=== PATIENT | male | born 1960 | race Caucasian/White ===

== ENCOUNTER 2019-08-07 18:29 | Inpatient (IN) | payer BC ==
--- NOTE | 2019-08-07 18:58 | ER Document Report ---
ED General - General Chief Complaint: Shortness Of Breath Stated Complaint: BREATHING PROBLEMS Time Seen by Provider: 08/07/19 18:44 Primary Care Provider: NELSON SKY MD [MISSAEL CORMIER] - Follow up as needed - [facility] Notes: Mr. Kc is a 59-year-old male lifelong cigarette smoker with a chief com plaint of difficulty breathing. This man has been told he has COPD in the past. He says he is not been hospitalized for this or intubated at any time. He denies any current medications. He denies allergies. He says he no longer smokes. He denies abuse of alcohol. He denies any major surgery. He is in profound respiratory distress and ability to ascertain further history from the patient is currently limited on this basis. He also appears to be somewhat encephalopathic. - Related Data Allergies/Adverse Reactions: No Known Allergies Allergy (Verified 12/27/13 15:08) Past Medical History - General Information source: Patient Cannot obtain history due to: Altered mental status - Social History Smoking Status: Former Smoker Family History: Reviewed & Not Pertinent - Past Medical History Cardiac Medical History: Denies: Hx Coronary Artery Disease, Hx Heart Attack, Hx Hypertension Pulmonary Medical History: Denies: Hx Asthma, Hx Bronchitis, Hx COPD, Hx Pneumonia, Hx Tuberculosis Neurological Medical History: Denies: Hx Cerebrovascular Accident, Hx Seizures Musculoskeletal Medical History: Denies Hx Arthritis - Immunizations Hx Diphtheria, Pertussis, Tetanus Vaccination: Yes Review of Systems - Review of Systems -: Yes ROS unobtainable due to patient's medical condition Physical Exam - Vital signs Vitals: Resp Pulse Ox 18 91 L 08/07/19 18:49 08/07/19 18:49 - Notes Notes: GENERAL: This is a somewhat obtunded male appearing approximately stated age who is in respiratory distress and had an O2 saturation in the mid 60s when seen in the triage area. He is noted to have a full tompkins. SKIN: Good turgor no rashes. HEAD: Normocephalic atraumatic. EYES: PERRLA. EOMI. Conjunctivae and sclerae clear. EARS: CANALS AND TMS CLEAR. NOSE: CLEAR. MOUTH: Moist mucosa. No stridor or edema. No drooling. NECK: Supple. No masses or thyromegaly. No adenopathy. Carotids 2+ without bruits. No JVD. BACK: Symmetrical without tenderness. CHEST: Respirations are labored with tight wheezes diffusely and symmetry of breath sounds. HEART: Regular rhythm. No murmur gallop or rub. ABDOMEN: Soft nontender without masses, organomegaly or rebound. Bowel sounds normally active. No bruits. GENITALIA: Deferred. EXTREMITIES: No edema. No calf tenderness. Cap refill less than 1.5 seconds. Dorsalis pedis and posterior tibial pulses 2 + and symmetrical. NEUROLOGICAL: Patient is oriented to person place but not time. Somewhat obtunded. His GCS is 13. His eyes are closed but he opens them on verbal command and he is following verbal commands to squeeze my fingers. Fluent speech. Cranial nerves II through XII intact. No gross sensory or motor deficit. And movement is symmetrical all 4 extremities. Normal tone. Course - Re-evaluation Re-evalutation: 08/07/19 19:01 BiPAP has been initiated. Continuous cardiac monitoring. IV access estab lished. Submental oxygen. Diagnostic studies to be obtained at this time include arterial blood gas CBC conference of metabolic profile blood cultures serum lactate urinalysis urine drug screen blood alcohol EKG and portable chest x-ray. 08/07/19 19:38 Mr. Kc looks much better clinically at this time. He is much more awake and alert and seems to be breathing very comfortably with BiPAP now. We are having some difficulty maintaining satisfactory seal with a mask due to his tompkins. I spoke with respiratory and asked him to try to adjust the mask to optimize his ventilatory status. His arterial blood gas initially showed a pH of 7.11 with a PCO2 of 95 and a PO2 of 116. His chest x-ray shows some slight increase in interstitial markings with no clear-cut focal consolidation no effusion and no pneumothorax. His EKG is remarkable for a sinus tachycardia and some PACs. His chemistry studies CBC urinalysis and tox studies all remain pending at this time as does his CK and BNP levels. I am going to give this man some IV steroids. We will repeat a arterial blood gas and approximately 35 minutes. We will try to avoid endotracheal intubation if we possibly can. At this point he does look better clinically however. 08/07/19 21:36 Patient has findings of congestive heart failure and COPD exacerbation. He is going to get IV Lasix and IV nitroglycerin. He is being admitted to the critical care unit by Dr. Jones. We debated about doing intubation for the patient but feel at this time it would like to try to avoid intubation and we will initially maximize treatment for his blood pressure his CHF and COPD exacerbation understanding that he may ultimately require intubation after he is admitted to the unit. - Vital Signs Vital signs: Temp Pulse Resp BP Pulse Ox 25 H 144/92 H 95 08/07/19 20:01 08/07/19 20:00 08/07/19 20:01 - Laboratory Result Diagrams: 08/07/19 18:49 08/07/19 18:49 Laboratory results interpreted by me: 08/07/19 08/07/19 08/07/19 18:49 18:49 18:49 WBC 13.2 H RBC 5.62 H Hgb 17.3 H Hct 54.9 H MCV 98 H MCHC 31.6 L RDW 14.6 H Abs Neuts (Manual) 10.8 H PT 17.5 H Carbonic Acid ABG pH ABG pCO2 ABG pO2 ABG HCO3 ABG Total CO2 ABG O2 Saturation Potassium 5.5 H Chloride 96 L BUN 64 H Creatinine 1.47 H Est GFR ( Amer) 59 L Est GFR (MDRD) Non-Af 49 L Glucose 209 H Magnesium 3.0 H Total Bilirubin 1.6 H Direct Bilirubin 0.9 H AST 507 H Alkaline Phosphatase 159 H NT-Pro-B Natriuret Pep 08/07/19 08/07/19 08/07/19 18:49 18:49 20:05 WBC RBC Hgb Hct MCV MCHC RDW Abs Neuts (Manual) PT Carbonic Acid 2.87 H 2.99 H ABG pH 7.11 L* 7.18 L* ABG pCO2 95.3 H* 99.5 H* ABG pO2 116.2 H 193.6 H ABG HCO3 29.3 H 36.4 H ABG Total CO2 32.2 H 39.4 H ABG O2 Saturation 98.9 H Potassium Chloride BUN Creatinine Est GFR ( Amer) Est GFR (MDRD) Non-Af Glucose Magnesium Total Bilirubin Direct Bilirubin AST Alkaline Phosphatase NT-Pro-B Natriuret Pep 01393 H - Diagnostic Test Radiology reviewed: Reports reviewed - EKG Interpretation by Me Additional EKG results interpreted by me: 08/07/19 19:41 Sinus tachycardia. Normal axis. PACs present. No acute ST changes. Critical Care Note - Critical Care Note Total time excluding time spent on procedures (mins): 105 Comments: BiPAP initiated for respiratory failure. Discharge - Discharge Clinical Impression: Acute respiratory failure with hypercapnia, Acute decompensated heart failure Chronic obstructive pulmonary disease (COPD) Qualifiers: COPD type: unspecified COPD Qualified Code(s): J44.9 - Chronic obstructive pulmonary disease, unspecified Condition: Critical Disposition: ADMITTED INPATIENT Admitting Provider: Rosetta (Vending Manager) Unit Admitted: ICU Referrals: NELSON SKY MD [[facility]] - Follow up as needed
--- NOTE | 2019-08-07 19:10 | RADIOLOGY REPORT (SQ) ---
EXAM DESCRIPTION: CHEST SINGLE VIEW COMPLETED DATE/TIME: 08/07/2019 7:03 pm REASON FOR STUDY: respiratory failure COMPARISON: None. TECHNIQUE: Single frontal radiographic view of the chest acquired. NUMBER OF VIEWS: One view. LIMITATIONS: None. FINDINGS: LUNGS AND PLEURA: No pneumothorax. Increased interstitial and alveolar opacities in both lung bases, left greater than right. No significant pleural effusion. MEDIASTINUM AND HILAR STRUCTURES: Age-appropriate. HEART AND VASCULAR STRUCTURES: Borderline cardiac enlargement. BONES: No acute findings. HARDWARE: None in the chest. OTHER: No other significant finding. IMPRESSION: Increased interstitial and alveolar opacities in both lung bases, left greater than righ t. No significant pleural effusion. TECHNICAL DOCUMENTATION: JOB ID: [id number] [id number] 2010 [employer]- All Rights Reserved Reading location - IP/workstation name: [employer]
[2019-08-07 19:14] LABS: ARTERIAL BLOOD H2CO3 2.87 mmol/L (1.05-1.35); ARTERIAL BLOOD HCO3 29.3 mmol/L (20-24); ARTERIAL BLOOD O2 SATURATION 96.4 % (94-98); ARTERIAL BLOOD PO2 116.2 mmHg (80-100); ARTERIAL BLOOD TOTAL CO2 32.2 mmol/L (23-27)
[2019-08-07 19:15] LABS: HEMATOCRIT 54.9 % (37.9-51.0); HEMOGLOBIN 17.3 g/dL (13.5-17.0); INTERNATIONAL RATION (INR) 1.43; MEAN CORPUSCULAR HEMOGLOBIN 30.8 pg (27.0-33.4); MEAN CORPUSCULAR HGB CONC 31.6 g/dL (32.0-36.0); MEAN CORPUSCULAR VOLUME 98 fl (80-97); PROTHROMBIN TIME 17.5 SEC (11.4-15.4); RED BLOOD COUNT 5.62 10^6/uL (4.35-5.55); RED CELL DISTRIBUTION WIDTH 14.6 % (11.5-14.0); WHITE BLOOD COUNT 13.2 10^3/uL (4.0-10.5)
[2019-08-07 19:16] LABS: PARTIAL THROMBOPLASTIN TIME 29.5 SEC (23.5-35.8)
[2019-08-07 19:18] LABS: ARTERIAL BLOOD FIO2 100%
[2019-08-07 19:19] LABS: ARTERIAL BLOOD PCO2 95.3 mmHg (35-45); ARTERIAL BLOOD PH 7.11 (7.35-7.45)
[2019-08-07 19:33] LABS: ALBUMIN 4.2 g/dL (3.5-5.0); ALKALINE PHOSPHATASE 159 U/L (38-126); ASPARTATE AMINO TRANSFERASE 507 U/L (17-59); BILIRUBIN,DIRECT 0.9 mg/dL (0.0-0.4); BILIRUBIN,TOTAL 1.6 mg/dL (0.2-1.3); BLOOD UREA NITROGEN 64 mg/dL (7-20); CALCIUM 9.6 mg/dL (8.4-10.2); GLUCOSE 209 mg/dL (75-110); POTASSIUM 5.5 mmol/L (3.6-5.0); TOTAL PROTEIN 7.9 g/dL (6.3-8.2)
[2019-08-07 19:38] LABS: CARBON DIOXIDE 28 mmol/L (22-30); CHLORIDE 96 mmol/L (98-107)
[2019-08-07 19:40] LABS: ALCOHOL < 10 mg/dL (NONE DETECTED)
[2019-08-07 19:41] LABS: ANION GAP 19 (5-19)
[2019-08-07 19:45] LABS: TROPONIN I 0.369 ng/mL
[2019-08-07 19:54] LABS: ABSOLUTE LYMPHOCYTES# (MANUAL) 1.7 10^3/uL (0.5-4.7); ABSOLUTE MONOCYTES # (MANUAL) 0.7 10^3/uL (0.1-1.4); BAND NEUTROPHILS % (MANUAL) 5 % (3-5); BASOPHILS % (MANUAL) 0 % (0-2); EOSINOPHILS % (MANUAL) 0 % (0-6); LYMPHOCYTES % (MANUAL) 13 % (13-45); MONOCYTES % (MANUAL) 5 % (3-13); NUCLEATED RED BLOOD CELLS 2 /100 WBC (0); SEGMENTED NEUTROPHILS % (MAN) 77 % (42-78); TOTAL CELLS COUNTED 100
[2019-08-07 19:55] LABS: ANISOCYTOSIS 1+; PLATELET COMMENT ADEQUATE; PLATELET COUNT 311 10^3/uL (150-450); POLYCHROMASIA 1+
[2019-08-07 20:26] LABS: ARTERIAL BLOOD BASE EXCESS 3.2 mmol/L; ARTERIAL BLOOD H2CO3 2.99 mmol/L (1.05-1.35); ARTERIAL BLOOD HCO3 36.4 mmol/L (20-24); ARTERIAL BLOOD O2 SATURATION 98.9 % (94-98); ARTERIAL BLOOD PO2 193.6 mmHg (80-100); ARTERIAL BLOOD TOTAL CO2 39.4 mmol/L (23-27)
[2019-08-07 20:34] LABS: ARTERIAL BLOOD FIO2 90%
[2019-08-07 20:35] LABS: ARTERIAL BLOOD PCO2 99.5 mmHg (35-45); ARTERIAL BLOOD PH 7.18 (7.35-7.45)
[2019-08-07] MEDS ORDERED: FUROSEMIDE INJ/PF 20 MG/2 ML SDV IV ONE (21:10)
[2019-08-07] MEDS ORDERED: IPRATROPIUM/ALBUTEROL 0.5-2.5 MG/3 ML AMPUL NEB ONE ×2 (21:37→21:51)
[2019-08-07] MEDS ORDERED: METHYLPREDNISOLONE INJ 125 MG/2 ML SDV ONE (21:48)
[2019-08-07 21:50] LABS: ARTERIAL BLOOD BASE EXCESS 3.6 mmol/L; ARTERIAL BLOOD H2CO3 2.53 mmol/L (1.05-1.35); ARTERIAL BLOOD HCO3 34.7 mmol/L (20-24); ARTERIAL BLOOD PH 7.24 (7.35-7.45); ARTERIAL BLOOD PO2 79.7 mmHg (80-100); ARTERIAL BLOOD TOTAL CO2 37.3 mmol/L (23-27)
[2019-08-07] MEDS ORDERED: METHYLPREDNISOLONE INJ 125 MG/2 ML SDV IV ONE (21:51)
[2019-08-07 21:52] LABS: ARTERIAL BLOOD FIO2 45%
[2019-08-07 21:53] LABS: ARTERIAL BLOOD PCO2 83.9 mmHg (35-45)
--- NOTE | 2019-08-07 23:06 | CRITICAL CARE ADMISSION REPORT ---
[facility] Date:: 08/07/19 Time:: 22:15 Reason for ICU Reason:: COPD exacerbation, acute on chronic respiratory failure. HPI: 59-year-old gentleman with no known significant past medical history other than a greater than [id number] history of smoking. He presented to the emergency department with shortness of breath and was suspected of having a COPD exacerbation. He was found to be in respiratory failure as he was somewhat obtunded with a pH of 7.11 and a CO2 of 95. He was placed on BiPAP with no significant improvement in CO2. Patient also has a BNP of 24,000 and a elevated troponin of 0.369 with no associated EKG abnormalities. CXR shows bilateral lower lobe consolidations. Upon interview and exam, patient was awake and alert for me and was awaiting administration of DuoNeb's and steroids. Given his clinical improvement, I postponed intubation until further treatment and evaluation. Repeat ABG now showing a pH of 7.24 and CO2 of 84. We will admit him to the intensive care unit for treatment of his COPD exacerbation, pneumonia, and for close observation given his possible impending respiratory failure. History obtained from:: Patient, medical record documentation. - Diagnosis/Plan (2) Chronic obstructive pulmonary disease (COPD) Qualifiers: COPD type: COPD with acute lower respiratory infection Qualified Code(s): J44.0 - Chronic obstructive pulmonary disease with (acute) lower respiratory infection Is this a current diagnosis for this admission?: Yes Plan: 1. Start duo nebs every 4 hours with first 2 treatments [id number]. 2. Start Solu-Medrol 1-2 mg/kg every 6 hours. 3. Maintain on BiPAP overnight. Obtain repeat ABG if any change in mental status. If patient no longer mentating well or if PaCO2 continues to rise, patient has agreed to intubation. 4. Given the severe exacerbation with possible impending respiratory failure and known infiltrates on CXR, we will start Zosyn and levofloxacin and obtain a sputum culture. (3) Elevated troponin level Is this a current diagnosis for this admission?: Yes Plan: Most likely attributed to relatively long period of hypoxemia. No EKG changes evident. PaO2 improving on BiPAP. Will reassess. Past Medical History Medical History: None - No known medical history. Cardiac Medical History: Denies: Coronary Artery Disease, Myocardial Infarction, Hypertension Pulmonary Medical History: Denies: Asthma, Bronchitis, Chronic Obstructive Pulmonary Disease (COPD), Pneumonia, Tuberculosis Neurological Medical History: Denies: Seizures Musculoskeltal Medical History: Denies: Arthritis Hematology: Denies: Anemia Past Surgical History Past Surgical History: Reports: Other - I&D of abdominal abscess Social/Family History - Social History Social History Note: Patient unable to provide much history while on BiPAP however he states that he has no family. Possibly homeless given his poor hygiene. Occupation: Unknown Lives with: Alone Smoking Status: Current Every Day Smoker Cigarettes Packs Per Day: 1.5 Number of Years Smokin Last Time Smoked: 2 weeks ago Frequency of Alcohol Use: None Hx Recreational Drug Use: No Hx Prescription Drug Abuse: No - Family History Family History: Unable to obtain - Medication/Allergies Home Medications: No Home Medications 1 mg PO DAILY 04/07/12 Cephalexin [Keflex] 500 mg PO QID 12/30/13 Metronidazole [Flagyl 500 mg Tablet] 500 mg PO QID 12/30/13 Oxycodone HCl/Acetaminophen [Percocet 5-325 mg Tablet] 1 - 2 tab PO BID 12/30/13 Allergies/Adverse Reactions: No Known Allergies Allergy (Verified 12/27/13 15:08) Review of Systems ROS unobtainable: Due to mental status, Other - Limited evaluation due to BiPAP mask. No gross complaints. Physical Exam Vital Signs: Temp Pulse Resp BP Pulse Ox 98.9 F 19 150/97 H 90 L 08/07/19 22:00 08/07/19 21:50 08/07/19 21:50 08/07/19 21:50 Intake & Output 08/06/19 08/07/19 08/08/19 06:59 06:59 06:59 Weight 111.8 kg Weight/Height Weight 111.8 kg General appearance: PRESENT: disheveled, severe distress Head exam: PRESENT: atraumatic, normocephalic Eye exam: PRESENT: EOMI, PERRLA Ear exam: ABSENT: bleeding, drainage Neck exam: ABSENT: carotid bruit, JVD, tenderness Respiratory exam: PRESENT: decreased breath sounds, rhonchi, wheezes Cardiovascular exam: PRESENT: RRR, +S1, +S2 Pulses: PRESENT: normal carotid pulses, normal radial pulses Vascular exam: PRESENT: normal capillary refill GI/Abdominal exam: PRESENT: normal bowel sounds, soft. ABSENT: distended, tenderness Extremities exam: ABSENT: calf tenderness, joint swelling, pedal edema Musculoskeletal exam: PRESENT: normal inspection Neurological exam: PRESENT: alert, oriented to situation, CN II-XII grossly intact Psychiatric exam: PRESENT: appropriate affect Additional comments: Poor hygiene. Laboratory/Radiographs Laboratory Results: 08/07/19 18:49 08/07/19 08/07/19 08/07/19 18:49 18:49 18:49 WBC 13.2 H RBC 5.62 H Hgb 17.3 H Hct 54.9 H MCV 98 H MCH 30.8 MCHC 31.6 L RDW 14.6 H Plt Count 311 Seg Neutrophils % Not Reportable Carbonic Acid 2.87 H HCO3/H2CO3 Ratio 10:1 ABG pH 7.11 L* ABG pCO2 95.3 H* ABG pO2 116.2 H ABG HCO3 29.3 H ABG O2 Saturation 96.4 ABG Base Excess -4.0 FiO2 100% Sodium 143.1 Potassium 5.5 H Chloride 96 L Carbon Dioxide 28 Anion Gap 19 BUN 64 H Creatinine 1.47 H Est GFR ( Amer) 59 L Glucose 209 H Lactic Acid Calcium 9.6 Magnesium 3.0 H Total Bilirubin 1.6 H AST 507 H Alkaline Phosphatase 159 H Total Protein 7.9 Albumin 4.2 08/07/19 08/07/19 08/07/19 20:05 20:55 21:20 WBC RBC Hgb Hct MCV MCH MCHC RDW Plt Count Seg Neutrophils % Carbonic Acid 2.99 H 2.53 H HCO3/H2CO3 Ratio 12:1 13:1 ABG pH 7.18 L* 7.24 L ABG pCO2 99.5 H* 83.9 H* ABG pO2 193.6 H 79.7 L ABG HCO3 36.4 H 34.7 H ABG O2 Saturation 98.9 H 93.0 L ABG Base Excess 3.2 3.6 FiO2 90% 45% Sodium Potassium Chloride Carbon Dioxide Anion Gap BUN Creatinine Est GFR ( Amer) Glucose Lactic Acid 2.9 H Calcium Magnesium Total Bilirubin AST Alkaline Phosphatase Total Protein Albumin 08/07/19 18:49 Troponin I 0.369 NT-Pro-B Natriuret Pep 44910 H Impressions: Chest X-Ray 08/07/19 18:54 IMPRESSION: Increased interstitial and alveolar opacities in both lung bases, left greater than right. No significant pleural effusion. All labs, radiographs, diagnostic studies and EKGs were personally reviewed: Yes In addition, reports of radiographic and diagnostic studies were read: Yes Critical Time Critical Time (minutes): 70 -: The care of a critically ill patient is dynamic. This note represents a static moment in the admission process. orders and treatments may be given simultaneously and urgent, and time is not commercial representative of the treatment process. This patient requires Critical Care secondary to life threatening organ or limb dysfunction. Without the need for Critical Care services, the patient is at risk for increased mortality and morbidity.
[2019-08-07] MEDS ORDERED: INFLUENZA QUAD (6MOS+) 2019-20 VAC 0.5 ML SYR IM ONE (23:09)
[2019-08-07] MEDS ORDERED: PIPERACILLIN/TAZOBACTAM 3.375 GM VIAL IV ONE (23:26)
[2019-08-07] MEDS ORDERED: PIPERACILLIN/TAZOBACTAM 3.375 GM VIAL IV PRN (23:32)
--- NOTE | 2019-08-07 23:42 | EKG REPORT ---
SEVERITY:- OTHERWISE NORMAL ECG - SINUS TACHYCARDIA ATRIAL PREMATURE COMPLEX : Confirmed by: Mita Escoto MD 07-Aug-2019 23:42:10
[2019-08-08] MEDS ORDERED: PIPERACILLIN/TAZOBACTAM 3.375 GM VIAL IV SCH
[2019-08-08 00:09] LABS: APPEARANCE,URINE CLEAR; BILIRUBIN,URINE NEGATIVE (NEGATIVE); COLOR,URINE YELLOW; GLUCOSE, URINE NEGATIVE (NEGATIVE); KETONES,URINE NEGATIVE (NEGATIVE); PROTEIN,URINE 100 mg/dL (NEGATIVE)
[2019-08-08] MEDS: IPRATROPIUM/ALBUTEROL 0.5-2.5 MG/3 ML AMPUL NEB SCH ×6 (00:17→20:01)
[2019-08-08] MEDS: PIPERACILLIN SODIUM/TAZOBACTAM 3.375 GM in NORMAL SALINE 100 ML IV SCH ×4 (00:23→17:00)
[2019-08-08 00:25] LABS: URINE AMPHETAMINES SCREEN NEGATIVE; URINE BARBITURATES SCREEN NEGATIVE; URINE BENZODIAZEPINES SCREEN NEGATIVE; URINE COCAINE SCREEN NEGATIVE; URINE MARIJUANA (THC) SCREEN NEGATIVE; URINE METHADONE SCREEN NEGATIVE; URINE PHENCYCLIDINE SCREEN NEGATIVE
[2019-08-08 05:22] LABS: ARTERIAL BLOOD BASE EXCESS 7.1 mmol/L; ARTERIAL BLOOD H2CO3 2.63 mmol/L (1.05-1.35); ARTERIAL BLOOD HCO3 38.6 mmol/L (20-24); ARTERIAL BLOOD O2 SATURATION 91.6 % (94-98); ARTERIAL BLOOD PH 7.26 (7.35-7.45); ARTERIAL BLOOD PO2 72.9 mmHg (80-100); ARTERIAL BLOOD TOTAL CO2 41.3 mmol/L (23-27)
[2019-08-08 05:24] LABS: ARTERIAL BLOOD FIO2 6L
[2019-08-08 05:25] LABS: ARTERIAL BLOOD PCO2 87.5 mmHg (35-45)
[2019-08-08] MEDS: METHYLPREDNISOLONE INJ 125 MG/2 ML SDV IV SCH ×2 (06:36→13:12)
[2019-08-08] MEDS: HEPARIN SOD (PORCINE) 5,000 UNIT/ML 1 ML VIAL SUBCUT SCH ×2 (06:36→13:11)
[2019-08-08 07:13] LABS: HEMATOCRIT 49.6 % (37.9-51.0); HEMOGLOBIN 16.2 g/dL (13.5-17.0); MEAN CORPUSCULAR HEMOGLOBIN 30.8 pg (27.0-33.4); MEAN CORPUSCULAR HGB CONC 32.5 g/dL (32.0-36.0); MEAN CORPUSCULAR VOLUME 95 fl (80-97); PLATELET COUNT 238 10^3/uL (150-450); RED BLOOD COUNT 5.25 10^6/uL (4.35-5.55); RED CELL DISTRIBUTION WIDTH 14.2 % (11.5-14.0); WHITE BLOOD COUNT 13.5 10^3/uL (4.0-10.5)
[2019-08-08 07:23] LABS: INTERNATIONAL RATION (INR) 1.35; PROTHROMBIN TIME 16.8 SEC (11.4-15.4)
[2019-08-08 07:24] LABS: PARTIAL THROMBOPLASTIN TIME 30.7 SEC (23.5-35.8)
[2019-08-08 07:29] LABS: BLOOD UREA NITROGEN 59 mg/dL (7-20); CALCIUM 8.8 mg/dL (8.4-10.2); CHLORIDE 97 mmol/L (98-107); CHOLESTEROL 85.07 mg/dL (0-200); GLUCOSE 143 mg/dL (75-110); PHOSPHORUS 5.3 mg/dL (2.5-4.5); POTASSIUM 5.6 mmol/L (3.6-5.0); TRIGLYCERIDES 115 mg/dL (<150)
[2019-08-08 07:35] LABS: ANION GAP 8 (5-19)
[2019-08-08 07:40] LABS: DIRECT LDL 57 mg/dL (<100); TROPONIN I 0.565 ng/mL
[2019-08-08 07:44] LABS: CARBON DIOXIDE 39 mmol/L (22-30)
--- NOTE | 2019-08-08 08:07 | EKG REPORT ---
SEVERITY:- BORDERLINE ECG - SINUS TACHYCARDIA PROBABLE LEFT ATRIAL ABNORMALITY NONSPECIFIC IVCD INFERIOR ST-T CHANGES FROM 08/07/19 HAVE IMPROVED SLIGHTLY. : Confirmed by: Vladimir Greer MD 08-Aug-2019 08:07:25
--- NOTE | 2019-08-08 09:42 | RADIOLOGY REPORT (SQ) ---
EXAM DESCRIPTION: CHEST SINGLE VIEW COMPLETED DATE/TIME: 08/08/2019 6:13 am REASON FOR STUDY: Pneumonia COMPARISON: 08/07/2019 NUMBER OF VIEWS: One view. TECHNIQUE: Single frontal radiographic image of the chest acquired. LIMITATIONS: None. FINDINGS: LUNGS AND PLEURA: Mixed interstitial lobular pattern in the lung bases, left greater than right. Small left pleural effusion. No significant change. MEDIASTINUM AND HEART: Stable heart size and mediastinal structures. BONY STRUCTURES: No acute findings. HARDWARE: None. OTHER: No other significant finding. IMPRESSION: Bilateral lower lobe pneumonia. No significant change. TECHNICAL DOCUMENTATION: JOB ID: [id number] Reading location - IP/workstation name: [email or web address]
[2019-08-08] MEDS: LEVOFLOXACIN 500 MG/D5W RTU 500 MG/100 ML RTUPB IV SCH (10:44)
--- NOTE | 2019-08-08 12:56 | PDOC CRITICAL CARE PROG REPORT ---
General Date:: 08/08/19 ICU Day:: 2 Hospital Day:: 2 Resuscitation Status: Full Code Events in the past 12 to 24 Hours:: More awake on bipap Review of systems relevant to events:: Respiratory Reason for ICU Addmission:: COPD exacerbation, acute on chronic respiratory failure. - Medications: Medications reviewed and adjusted accordingly: Yes Vasopressors:: None Sedation:: None Physical Exam Vital Signs: Temp Pulse Resp BP Pulse Ox 98.6 F 112 H 16 139/94 H 94 08/08/19 12:00 08/08/19 12:00 08/08/19 12:00 08/08/19 12:00 08/08/19 12:00 Intake & Output 08/07/19 08/08/19 08/09/19 06:59 06:59 06:59 Intake Total 100 Output Total 1025 545 Balance -925 -545 Weight 110.3 kg Weight/Height Weight 110.3 kg Height 6 ft 1 in General appearance: PRESENT: no acute distress, well-developed, well-nourished Head exam: PRESENT: atraumatic, normocephalic Eye exam: PRESENT: conjunctiva pink, EOMI, PERRLA. ABSENT: scleral icterus Ear exam: PRESENT: normal external ear exam Mouth exam: PRESENT: moist, tongue midline Respiratory exam: PRESENT: crackles - Crackles at L base, decreased breath sounds Cardiovascular exam: PRESENT: RRR. ABSENT: diastolic murmur, rubs, systolic murmur Vascular exam: PRESENT: normal capillary refill GI/Abdominal exam: PRESENT: normal bowel sounds, soft. ABSENT: distended, guarding, mass, organolmegaly, rebound, tenderness Gentrourinary exam: PRESENT: indwelling catheter Extremities exam: PRESENT: full ROM. ABSENT: calf tenderness, clubbing, pedal edema Musculoskeletal exam: PRESENT: normal inspection Neurological exam: PRESENT: alert, awake, oriented to person, oriented to place, oriented to time, oriented to situation, CN II-XII grossly intact, other - Sleepy. ABSENT: motor sensory deficit Psychiatric exam: PRESENT: appropriate affect, normal mood. ABSENT: homicidal ideation, suicidal ideation Skin exam: PRESENT: dry, intact, warm. ABSENT: cyanosis, rash Laboratory/Radiographs Laboratory Results: 08/08/19 07:02 08/08/19 07:02 12/04/1808/07/19 08/07/19 18:49 18:49 18:49 WBC 13.2 H RBC 5.62 H Hgb 17.3 H Hct 54.9 H MCV 98 H MCH 30.8 MCHC 31.6 L RDW 14.6 H Plt Count 311 Seg Neutrophils % Not Reportable Carbonic Acid 2.87 H HCO3/H2CO3 Ratio 10:1 ABG pH 7.11 L* ABG pCO2 95.3 H* ABG pO2 116.2 H ABG HCO3 29.3 H ABG O2 Saturation 96.4 ABG Base Excess -4.0 FiO2 100% Sodium 143.1 Potassium 5.5 H Chloride 96 L Carbon Dioxide 28 Anion Gap 19 BUN 64 H Creatinine 1.47 H Est GFR ( Amer) 59 L Glucose 209 H Lactic Acid Calcium 9.6 Phosphorus Magnesium 3.0 H Total Bilirubin 1.6 H AST 507 H Alkaline Phosphatase 159 H Total Protein 7.9 Albumin 4.2 Triglycerides Cholesterol LDL Cholesterol Direct VLDL Cholesterol HDL Cholesterol Urine Color Urine Appearance Urine pH Ur Specific Carpenter Urine Protein Urine Glucose (UA) Urine Ketones Urine Blood Urine RBC (Auto) 08/07/19 08/07/19 08/07/19 20:05 20:55 21:20 WBC RBC Hgb Hct MCV MCH MCHC RDW Plt Count Seg Neutrophils % Carbonic Acid 2.99 H 2.53 H HCO3/H2CO3 Ratio 12:1 13:1 ABG pH 7.18 L* 7.24 L ABG pCO2 99.5 H* 83.9 H* ABG pO2 193.6 H 79.7 L ABG HCO3 36.4 H 34.7 H ABG O2 Saturation 98.9 H 93.0 L ABG Base Excess 3.2 3.6 FiO2 90% 45% Sodium Potassium Chloride Carbon Dioxide Anion Gap BUN Creatinine Est GFR ( Amer) Glucose Lactic Acid 2.9 H Calcium Phosphorus Magnesium Total Bilirubin AST Alkaline Phosphatase Total Protein Albumin Triglycerides Cholesterol LDL Cholesterol Direct VLDL Cholesterol HDL Cholesterol Urine Color Urine Appearance Urine pH Ur Specific Carpenter Urine Protein Urine Glucose (UA) Urine Ketones Urine Blood Urine RBC (Auto) 08/07/19 08/08/19 08/08/19 23:54 04:20 07:02 WBC 13.5 H RBC 5.25 Hgb 16.2 Hct 49.6 MCV 95 MCH 30.8 MCHC 32.5 RDW 14.2 H Plt Count 238 Seg Neutrophils % Carbonic Acid 2.63 H HCO3/H2CO3 Ratio 14:1 ABG pH 7.26 L ABG pCO2 87.5 H* ABG pO2 72.9 L ABG HCO3 38.6 H ABG O2 Saturation 91.6 L ABG Base Excess 7.1 FiO2 6L Sodium Potassium Chloride Carbon Dioxide Anion Gap BUN Creatinine Est GFR ( Amer) Glucose Lactic Acid Calcium Phosphorus Magnesium Total Bilirubin AST Alkaline Phosphatase Total Protein Albumin Triglycerides Cholesterol LDL Cholesterol Direct VLDL Cholesterol HDL Cholesterol Urine Color YELLOW Urine Appearance CLEAR Urine pH 5.0 Ur Specific Carpenter 1.010 Urine Protein 100 H Urine Glucose (UA) NEGATIVE Urine Ketones NEGATIVE Urine Blood MODERATE H Urine RBC (Auto) 0 08/08/19 07:02 WBC RBC Hgb Hct MCV MCH MCHC RDW Plt Count Seg Neutrophils % Carbonic Acid HCO3/H2CO3 Ratio ABG pH ABG pCO2 ABG pO2 ABG HCO3 ABG O2 Saturation ABG Base Excess FiO2 Sodium 144.3 Potassium 5.6 H Chloride 97 L Carbon Dioxide 39 H D Anion Gap 8 BUN 59 H Creatinine 1.27 H Est GFR ( Amer) > 60 Glucose 143 H Lactic Acid Calcium 8.8 Phosphorus 5.3 H Magnesium 2.6 H Total Bilirubin AST Alkaline Phosphatase Total Protein Albumin Triglycerides 115 Cholesterol 85.07 LDL Cholesterol Direct 57 VLDL Cholesterol 23.0 HDL Cholesterol 13 L Urine Color Urine Appearance Urine pH Ur Specific Carpenter Urine Protein Urine Glucose (UA) Urine Ketones Urine Blood Urine RBC (Auto) 08/07/19 08/08/19 08/08/19 18:49 00:36 07:02 Troponin I 0.369 0.636 0.565 NT-Pro-B Natriuret Pep 79371 H 97808 H Impressions: Chest X-Ray 08/08/19 06:00 IMPRESSION: Bilateral lower lobe pneumonia. No significant change. All labs, radiographs, diagnostic studies and EKGs were personally reviewed: Yes In addition, reports of radiographic and diagnostic studies were read: Yes Assessment and Plan - Diagnosis (1) Acute respiratory failure with hypercapnia Is this a current diagnosis for this admission?: Yes Plan: Better but still not resolved with pH 7.27. Continue bipap. (2) Chronic obstructive pulmonary disease (COPD) Qualifiers: COPD type: COPD with acute lower respiratory infection Qualified Code(s): J44.0 - Chronic obstructive pulmonary disease with (acute) lower respiratory infection Is this a current diagnosis for this admission?: Yes Plan: He has never been diagnosed with COPD but has a many year smoking history. He has had dyspnea for 'a few days.' We kendall continue bipap until pH 7.30. Solumedrol and albuterol as well. (3) Elevated troponin level Is this a current diagnosis for this admission?: Yes Plan: Seems to be non-cardiac and will cycle troponins. Plan Summary: Bipap, normalize ABGs more and use steroids and breathing treatments. Critical Time Critical Time (minutes): 35 Level of Care: ICU Anticipated discharge: Home Within: within 72 hours -: 1. The care of a critical patient is a dynamic process. This note is a b2b sales representative synopsis but static in nature. The timeframe for treatments given in order is not necessary the actual time these treatments may have been done. 2. This patient requires critical care secondary to ongoing requirements for therapy not offered or safe outside the critical care environment. Transfer to a lower level of care with altered life or limb morbidity and mortality. 3. Multidisciplinary rounds completed. 4. ABCDE bundle addressed.
[2019-08-09] MEDS: HEPARIN SOD (PORCINE) 5,000 UNIT/ML 1 ML VIAL SUBCUT SCH ×4 (00:09→21:10)
[2019-08-09] MEDS: METHYLPREDNISOLONE INJ 125 MG/2 ML SDV IV SCH ×4 (00:10→21:10)
[2019-08-09] MEDS: PIPERACILLIN SODIUM/TAZOBACTAM 3.375 GM in NORMAL SALINE 100 ML IV SCH ×5 (00:11→23:08)
[2019-08-09] MEDS: IPRATROPIUM/ALBUTEROL 0.5-2.5 MG/3 ML AMPUL NEB SCH ×6 (01:04→20:21)
[2019-08-09 04:51] LABS: BLOOD UREA NITROGEN 56 mg/dL (7-20); CALCIUM 9.3 mg/dL (8.4-10.2); CHLORIDE 101 mmol/L (98-107); GLUCOSE 145 mg/dL (75-110); POTASSIUM 5.4 mmol/L (3.6-5.0)
[2019-08-09 05:45] LABS: ANION GAP 7 (5-19); CARBON DIOXIDE 41 mmol/L (22-30)
[2019-08-09 08:18] LABS: ARTERIAL BLOOD H2CO3 3.03 mmol/L (1.05-1.35); ARTERIAL BLOOD HCO3 45.7 mmol/L (20-24); ARTERIAL BLOOD O2 SATURATION 94.2 % (94-98); ARTERIAL BLOOD PH 7.28 (7.35-7.45); ARTERIAL BLOOD PO2 84.2 mmHg (80-100); ARTERIAL BLOOD TOTAL CO2 48.8 mmol/L (23-27)
[2019-08-09 08:22] LABS: ARTERIAL BLOOD FIO2 65%
[2019-08-09 08:24] LABS: ARTERIAL BLOOD PCO2 100.5 mmHg (35-45)
[2019-08-09] MEDS: LEVOFLOXACIN 500 MG/D5W RTU 500 MG/100 ML RTUPB IV SCH (09:17)
[2019-08-09 12:23] LABS: ARTERIAL BLOOD BASE EXCESS 13.5 mmol/L; ARTERIAL BLOOD H2CO3 2.42 mmol/L (1.05-1.35); ARTERIAL BLOOD HCO3 43.8 mmol/L (20-24); ARTERIAL BLOOD O2 SATURATION 88.4 % (94-98); ARTERIAL BLOOD PH 7.35 (7.35-7.45); ARTERIAL BLOOD PO2 59.7 mmHg (80-100); ARTERIAL BLOOD TOTAL CO2 46.3 mmol/L (23-27)
[2019-08-09] MEDS ORDERED: METOPROLOL TARTRATE PF/INJ 5 MG/5 ML SDV IV ONE ×2 (12:25→12:27)
[2019-08-09] MEDS ORDERED: DILTIAZEM HCL INJ 25 MG/5 ML VIAL IV ONE (12:25)
[2019-08-09 12:26] LABS: ARTERIAL BLOOD FIO2 4L
[2019-08-09 12:27] LABS: ARTERIAL BLOOD PCO2 80.5 mmHg (35-45)
[2019-08-09] MEDS ORDERED: DILTIAZEM HCL INJ 25 MG/5 ML VIAL ONE (12:28)
--- NOTE | 2019-08-09 12:54 | EKG REPORT ---
SEVERITY:- ABNORMAL ECG - SINUS TACHYCARDIA SUPRAVENTRICULAR BIGEMINY PROBABLE LEFT ATRIAL ABNORMALITY BORDERLINE ST DEPRESSION, LATERAL LEADS : Confirmed by: Vladimir Greer MD 09-Aug-2019 12:53:39
--- NOTE | 2019-08-09 13:13 | PDOC CRITICAL CARE PROG REPORT ---
General Date:: 08/09/19 ICU Day:: 2 Hospital Day:: 2 Resuscitation Status: Full Code Events in the past 12 to 24 Hours:: Off bipap Review of systems relevant to events:: Respiratory, neuro. Reason for ICU Addmission:: COPD exacerbation, acute on chronic respiratory failure. - Medications: Medications reviewed and adjusted accordingly: Yes Vasopressors:: None Sedation:: None Physical Exam Vital Signs: Temp Pulse Resp BP Pulse Ox 99.3 F 114 H 18 115/91 H 93 08/09/19 11:00 08/09/19 11:36 08/09/19 11:36 08/09/19 10:47 08/09/19 11:36 Intake & Output 08/08/19 08/09/19 08/10/19 06:59 06:59 06:59 Intake Total 100 600 Output Total 1025 2230 395 Balance -925 -1630 -395 Weight 110.3 kg 109.4 kg Weight/Height Weight 109.4 kg Height 6 ft 1 in General appearance: PRESENT: cooperative, mild distress Head exam: PRESENT: atraumatic, normocephalic Eye exam: PRESENT: conjunctiva pink, EOMI, PERRLA. ABSENT: scleral icterus Ear exam: PRESENT: normal external ear exam Mouth exam: PRESENT: moist, tongue midline Respiratory exam: PRESENT: decreased breath sounds, rhonchi Cardiovascular exam: PRESENT: RRR, other - Episodes of tachycadia. ST and MAT no Afib at this time.. ABSENT: diastolic murmur, rubs, systolic murmur GI/Abdominal exam: PRESENT: normal bowel sounds, soft. ABSENT: distended, guarding, mass, organolmegaly, rebound, tenderness Rectal exam: PRESENT: deferred Extremities exam: PRESENT: full ROM. ABSENT: calf tenderness, clubbing, pedal edema Neurological exam: PRESENT: alert, altered, awake, oriented to person, oriented to place Laboratory/Radiographs Laboratory Results: 08/08/19 07:02 08/09/19 04:02 08/09/19 08/09/19 08/09/19 04:02 07:55 11:59 Carbonic Acid 3.03 H 2.42 H HCO3/H2CO3 Ratio 15:1 18:1 ABG pH 7.28 L 7.35 ABG pCO2 100.5 H* 80.5 H* ABG pO2 84.2 59.7 L ABG HCO3 45.7 H 43.8 H ABG O2 Saturation 94.2 88.4 L ABG Base Excess 13.0 13.5 FiO2 65% 4L Sodium 148.9 H Potassium 5.4 H Chloride 101 Carbon Dioxide 41 H* Anion Gap 7 BUN 56 H Creatinine 1.12 Est GFR ( Amer) > 60 Glucose 145 H Calcium 9.3 08/07/19 08/08/19 08/08/19 18:49 00:36 07:02 Troponin I 0.369 0.636 0.565 NT-Pro-B Natriuret Pep 15891 H 44014 H 08/08/19 12:56 Troponin I 0.445 NT-Pro-B Natriuret Pep Impressions: Chest X-Ray 08/08/19 06:00 IMPRESSION: Bilateral lower lobe pneumonia. No significant change. EKG: ST and perhaps MAT at points All labs, radiographs, diagnostic studies and EKGs were personally reviewed: Yes In addition, reports of radiographic and diagnostic studies were read: Yes Assessment and Plan - Diagnosis (1) Acute respiratory failure with hypercapnia Is this a current diagnosis for this admission?: Yes Plan: Hypercapnia resolved. PO2 somewhat low. (2) Chronic obstructive pulmonary disease (COPD) Qualifiers: COPD type: COPD with acute lower respiratory infection Qualified Code(s): J44.0 - Chronic obstructive pulmonary disease with (acute) lower respiratory infection Is this a current diagnosis for this admission?: Yes Plan: t is off bipap. PCO2 and pH improved. At this time no need to intubate. PO2 somewhat low at 60. On face mask. Keep sats 88-92%. (3) Elevated troponin level Is this a current diagnosis for this admission?: Yes Plan: No STEMI or NSTEMI. O2 supply/demand mismatch from COPD execerbation. (4) Sinus tachycardia seen on rehab consultant Is this a current diagnosis for this admission?: Yes Plan: Treate with IV cardizen and lopressor. Plan Summary: Supplemental O2 and continue solumedrol and albuterol. Critical Time Critical Time (minutes): 35 Level of Care: ICU Anticipated discharge: Home Within: within 72 hours -: 1. The care of a critical patient is a dynamic process. This note is a food service representative synopsis but static in nature. The timeframe for treatments given in order is not necessary the actual time these treatments may have been done. 2. This patient requires critical care secondary to ongoing requirements for therapy not offered or safe outside the critical care environment. Transfer to a lower level of care with altered life or limb morbidity and mortality. 3. Multidisciplinary rounds completed. 4. ABCDE bundle addressed.
[2019-08-09 19:06] LABS: ARTERIAL BLOOD BASE EXCESS 12.4 mmol/L; ARTERIAL BLOOD FIO2 10; ARTERIAL BLOOD H2CO3 2.89 mmol/L (1.05-1.35); ARTERIAL BLOOD HCO3 44.4 mmol/L (20-24); ARTERIAL BLOOD O2 SATURATION 97.9 % (94-98); ARTERIAL BLOOD PH 7.28 (7.35-7.45); ARTERIAL BLOOD PO2 127.3 mmHg (80-100); ARTERIAL BLOOD TOTAL CO2 47.4 mmol/L (23-27)
[2019-08-09 19:08] LABS: ARTERIAL BLOOD PCO2 96.1 mmHg (35-45)
[2019-08-09] MEDS ORDERED: ETOMIDATE INJ/PF 20 MG/10 ML SDV IV ONE (19:47)
[2019-08-09] MEDS ORDERED: PROPOFOL 1,000 MG/100 ML INFUS..BTL IV ONE (19:47)
[2019-08-09] MEDS ORDERED: SUCCINYLCHOLINE CHLORIDE INJ 200 MG/10 ML VIAL ONE (20:00)
[2019-08-09] MEDS: PROPOFOL 1,000 MG/100 ML INFUS..BTL IV PRN (20:15)
[2019-08-09] MEDS: PROPOFOL 1,000 MG/100 ML INFUS..BTL IV ONE (20:15)
--- NOTE | 2019-08-09 22:17 | RADIOLOGY REPORT (SQ) ---
EXAM DESCRIPTION: XR CHEST 1 VIEW COMPLETED DATE/TME: 08/09/2019 00:00 CLINICAL HISTORY: 59 years, Male, ETT placement COMPARISON: 08/08/2019 chest NUMBER OF VIEWS: 1 TECHNIQUE: Portable chest LIMITATIONS: None. FINDINGS: Endotracheal tube with the tip 5 cm above the blaire. Enteric tube with the tip extending into the left upper quadrant. No pneumothorax. Mixed interstitial and airspace opacities bilaterally, as before. Elevation left hemidiaphragm. IMPRESSION: Interval intubation and placement of an enteric tube. Other findings stable copyright 2010 [employer] [facility] [employer]- All Rights Reserved
--- NOTE | 2019-08-09 22:41 | RADIOLOGY REPORT (SQ) ---
EXAM DESCRIPTION: XR CHEST 1 VIEW COMPLETED DATE/TME: 08/09/2019 00:00 CLINICAL HISTORY: 59 years, Male, central line placement COMPARISON: Prior chest x-ray from today's date NUMBER OF VIEWS: 1 TECHNIQUE: Portable chest LIMITATIONS: None. FINDINGS: Central venous catheter, with the tip in the SVC. No pneumothorax. Endotracheal tube and enteric tube remain in place. The heart size is stable. Interstitial and airspace opacities, as before IMPRESSION: Tip of the central line in the SVC. Other findings are stable copyright 2010 [employer]- All Rights Reserved
[2019-08-09] MEDS: FENTANYL CITRATE/PF 600 MCG/60 ML BAG IV PRN (22:57)
[2019-08-09 23:52] LABS: ARTERIAL BLOOD BASE EXCESS 15.1 mmol/L; ARTERIAL BLOOD H2CO3 2.23 mmol/L (1.05-1.35); ARTERIAL BLOOD HCO3 44.3 mmol/L (20-24); ARTERIAL BLOOD O2 SATURATION 82.5 % (94-98); ARTERIAL BLOOD PH 7.39 (7.35-7.45); ARTERIAL BLOOD TOTAL CO2 46.5 mmol/L (23-27)
[2019-08-09 23:55] LABS: ARTERIAL BLOOD FIO2 45%; ARTERIAL BLOOD PCO2 74.1 mmHg (35-45)
[2019-08-10] MEDS: IPRATROPIUM/ALBUTEROL 0.5-2.5 MG/3 ML AMPUL NEB SCH ×6 (00:29→20:12)
[2019-08-10] MEDS: PROPOFOL 1,000 MG/100 ML INFUS..BTL IV PRN ×5 (00:55→21:46)
--- NOTE | 2019-08-10 00:57 | Progress Note ---
Provider Note Provider Note: Procedure note: Procedure: Endotracheal intubation. Patient's overall respiratory condition had declined throughout the day. His most recent ABG showed a PaCO2 of 96.1 and a worsening acidemia. Patient agreed to intubation during our previous conversations and despite being lethargic and confused, he seemed to agree again just prior to intubation procedure. Anesthesia was notified and was at bedside at time of intubation. Glidascope was available at bedside. Patient was laid in the supine position. Rapid sequence intubation was initiated with propofol etomidate and succinylcholine. Vocal cords were identified under direct laryngoscopic vision. 7.5 ET tube was advanced through the vocal cords. Placement confirmed by E-Z cap capnography. Bilateral breath sounds were present and equal. ET tube was secured at 23 cm at the lip. Chest x-ray performed and showed ET tube 6 cm above the blaire. ET tube was then advanced to 26 cm at the lip. Placement then confirmed once again with bilateral breath sounds. Repeat chest x-ray is pending. Repeat ABG shows significant improvement in both pH and PaCO2 level. A large quantity of thick secretions suctioned from ET tube.
--- NOTE | 2019-08-10 00:59 | Operative Report ---
Bedside Procedure - History of Present Illness Indication for Procedure: Medication administration including drips and an tibiotics. Date: 08/09/19 Provider: ROBE [place] - Central Line Right Internal jugular Time completed: 09:00 Consent obtained: Yes Central line pre-insertion: Sterile PPE donned, Chloraprep applied, Sterile drapes applied Central line size (Fr.): 16 Central line lumen type: Triple Anesthetic type: 1% Lidocaine mL's of anesthesia: 3 Ultrasound guided: Yes CM at insertion site: 15 Line secured with sutures: Yes Central line post-insertion: Blood return from lumens, Biopatch applied, Sutured, Sterile dressing applied, Position confirmed w/ CXR Number of attempts: 1 Complications: No
[2019-08-10] MEDS ORDERED: SUCCINYLCHOLINE CHLORIDE INJ 200 MG/10 ML VIAL IV ONE (02:43)
[2019-08-10] MEDS: PROPOFOL 1,000 MG/100 ML INFUS..BTL IV ONE (03:15)
[2019-08-10] MEDS ORDERED: METOPROLOL TARTRATE PF/INJ 5 MG/5 ML SDV IV ONE ×4 (03:46→18:00)
[2019-08-10] MEDS: METHYLPREDNISOLONE INJ 125 MG/2 ML SDV IV SCH ×3 (05:15→21:47)
[2019-08-10] MEDS: PIPERACILLIN SODIUM/TAZOBACTAM 3.375 GM in NORMAL SALINE 100 ML IV SCH ×4 (05:15→23:59)
[2019-08-10] MEDS: HEPARIN SOD (PORCINE) 5,000 UNIT/ML 1 ML VIAL SUBCUT SCH ×3 (05:16→21:47)
--- NOTE | 2019-08-10 07:47 | EKG REPORT ---
SEVERITY:- ABNORMAL ECG - SINUS RHYTHM SINUS PAUSE/ARREST WITH ATRIAL ESCAPE NONSPECIFIC T ABNORMALITIES, ANT-LAT LEADS : Confirmed by: Vladimir Greer MD 10-Aug-2019 07:47:10
[2019-08-10 08:52] LABS: HEMATOCRIT 45.8 % (37.9-51.0); HEMOGLOBIN 14.6 g/dL (13.5-17.0); MEAN CORPUSCULAR HEMOGLOBIN 30.4 pg (27.0-33.4); MEAN CORPUSCULAR VOLUME 95 fl (80-97); RED BLOOD COUNT 4.82 10^6/uL (4.35-5.55); RED CELL DISTRIBUTION WIDTH 14.2 % (11.5-14.0); WHITE BLOOD COUNT 12.4 10^3/uL (4.0-10.5)
[2019-08-10 09:08] LABS: BLOOD UREA NITROGEN 65 mg/dL (7-20); CALCIUM 9.5 mg/dL (8.4-10.2); CHLORIDE 101 mmol/L (98-107); GLUCOSE 133 mg/dL (75-110); POTASSIUM 5.2 mmol/L (3.6-5.0)
[2019-08-10 09:11] LABS: ABSOLUTE LYMPHOCYTES# (MANUAL) 0.4 10^3/uL (0.5-4.7); ABSOLUTE MONOCYTES # (MANUAL) 0.1 10^3/uL (0.1-1.4); BASOPHILS % (MANUAL) 0 % (0-2); EOSINOPHILS % (MANUAL) 0 % (0-6); LYMPHOCYTES % (MANUAL) 3 % (13-45); MONOCYTES % (MANUAL) 1 % (3-13); SEGMENTED NEUTROPHILS % (MAN) 96 % (42-78); TOTAL CELLS COUNTED 100
[2019-08-10 09:12] LABS: POLYCHROMASIA SLIGHT
[2019-08-10] MEDS: LEVOFLOXACIN 500 MG/D5W RTU 500 MG/100 ML RTUPB IV SCH (09:13)
[2019-08-10 09:14] LABS: PLATELET CLUMPS PRESENT; PLATELET COMMENT ADEQUATE; RBC MORPHOLOGY COMMENT NORMO-CYTIC/CHROMIC
[2019-08-10 09:16] LABS: PLATELET COUNT 177 10^3/uL (150-450)
[2019-08-10 09:23] LABS: ANION GAP 4 (5-19)
[2019-08-10 09:24] LABS: CARBON DIOXIDE 44 mmol/L (22-30)
[2019-08-10] MEDS: FAMOTIDINE 20 MG TABLET NG SCH ×2 (11:29→17:42)
--- NOTE | 2019-08-10 12:17 | PDOC CRITICAL CARE PROG REPORT ---
General Date:: 08/10/19 ICU Day:: 4 Ventilator Day:: 2 Hospital Day:: 4 Resuscitation Status: Full Code Events in the past 12 to 24 Hours:: intubated for hypercapnic respiratory failure Reason for ICU Addmission:: COPD exacerbation, acute on chronic respiratory failure. - Medications: Medications reviewed and adjusted accordingly: Yes Physical Exam Vital Signs: Temp Pulse Resp BP Pulse Ox 98.4 F 84 16 108/71 88 L 08/10/19 11:02 08/10/19 11:33 08/10/19 11:33 08/10/19 11:02 08/10/19 11:33 Intake & Output 08/09/19 08/10/19 08/11/19 06:59 06:59 06:59 Intake Total 600 646 100 Output Total 2230 1765 140 Balance -1630 -1119 -40 Weight 109.4 kg 105.7 kg Weight/Height Weight 105.7 kg Height 6 ft 1 in General appearance: PRESENT: no acute distress, well-developed, well-nourished Head exam: PRESENT: atraumatic, normocephalic Eye exam: PRESENT: conjunctiva pink, EOMI, PERRLA. ABSENT: scleral icterus Mouth exam: PRESENT: moist, tongue midline Throat exam: PRESENT: other - ET tube securely in place. Oral care routinely performed Neck exam: ABSENT: carotid bruit, JVD, lymphadenopathy, thyromegaly Respiratory exam: PRESENT: clear to auscultation ashleigh. ABSENT: accessory muscle use, rales, rhonchi, wheezes Cardiovascular exam: PRESENT: tachycardia - mildly tachycardic to low 100's. ABSENT: diastolic murmur, rubs, systolic murmur Pulses: PRESENT: normal dorsalis pedis pul Vascular exam: PRESENT: normal capillary refill GI/Abdominal exam: PRESENT: normal bowel sounds, soft. ABSENT: ascites, distended, guarding, mass, organolmegaly, rebound, tenderness Rectal exam: PRESENT: deferred Musculoskeletal exam: ABSENT: deformity Neurological exam: PRESENT: other - ALLEN -4 on current sedation levels. CNII-XII grossly intact. Psychiatric exam: ABSENT: agitated Skin exam: PRESENT: dry, intact, warm. ABSENT: cyanosis, rash Tubes/Lines: PRESENT: Endotracheal Tube, Central Line Laboratory/Radiographs Laboratory Results: 08/10/19 08:42 08/10/19 08:42 08/09/19 08/09/19 08/09/19 11:59 18:55 23:25 WBC RBC Hgb Hct MCV MCH MCHC RDW Plt Count Seg Neutrophils % Carbonic Acid 2.42 H 2.89 H 2.23 H HCO3/H2CO3 Ratio 18:1 15:1 19:1 ABG pH 7.35 7.28 L 7.39 ABG pCO2 80.5 H* 96.1 H* 74.1 H* ABG pO2 59.7 L 127.3 H 49.0 L ABG HCO3 43.8 H 44.4 H 44.3 H ABG O2 Saturation 88.4 L 97.9 82.5 L ABG Base Excess 13.5 12.4 15.1 FiO2 4L 10 45% Sodium Potassium Chloride Carbon Dioxide Anion Gap BUN Creatinine Est GFR ( Amer) Glucose Calcium Triglycerides 08/10/19 08/10/19 08/10/19 08:42 08:42 08:42 WBC 12.4 H RBC 4.82 Hgb 14.6 Hct 45.8 MCV 95 MCH 30.4 MCHC 32.0 RDW 14.2 H Plt Count 177 Seg Neutrophils % Not Reportable Carbonic Acid HCO3/H2CO3 Ratio ABG pH ABG pCO2 ABG pO2 ABG HCO3 ABG O2 Saturation ABG Base Excess FiO2 Sodium 149.2 H Potassium 5.2 H Chloride 101 Carbon Dioxide 44 H* Anion Gap 4 L BUN 65 H Creatinine 1.02 Est GFR ( Amer) > 60 Glucose 133 H Calcium 9.5 Triglycerides 253 H 08/07/19 08/08/19 08/08/19 18:49 00:36 07:02 Troponin I 0.369 0.636 0.565 NT-Pro-B Natriuret Pep 86520 H 88442 H 08/08/19 12:56 Troponin I 0.445 NT-Pro-B Natriuret Pep Impressions: Chest X-Ray 08/09/19 00:00 IMPRESSION: Tip of the central line in the SVC. Other findings are stable copyright 2011 [employer]- All Rights Reserved All labs, radiographs, diagnostic studies and EKGs were personally reviewed: Yes In addition, reports of radiographic and diagnostic studies were read: Yes Assessment and Plan - Diagnosis (1) Acute respiratory failure with hypercapnia Is this a current diagnosis for this admission?: Yes Plan: Continue to wean ventilator as able. Maintain SPO2 88-92%. (2) Chronic obstructive pulmonary disease (COPD) Qualifiers: COPD type: COPD with acute lower respiratory infection Qualified Code(s): J44.0 - Chronic obstructive pulmonary disease with (acute) lower respiratory infection Is this a current diagnosis for this admission?: Yes Plan: Continue ABX for presumed lower lobe pneumonia. Wean vent as able. Patient likely has baseline hypercapnea at home but still grossly elevated on last ABG. (3) Elevated troponin level Is this a current diagnosis for this admission?: Yes Plan: Levels peaked yesterday and have begun to drop. Continue to trend. (4) Sinus tachycardia seen on cardiac rehabilitation program director Is this a current diagnosis for this admission?: Yes Plan: Episode of hypertension this morning as well. Should patient remain hypertensive will add beta blockade for both tachycardia and HTN. Potassium decreasing from 5.2 but may still be contributing to tachycardia--continue to monitor closely until returns to normal range. (5) Hyperkalemia Is this a current diagnosis for this admission?: Yes Plan: Continues to downtrend with hydration. Monitor closely and avoid supplemental potassium in fluids. Critical Time Critical Time (minutes): 30 Level of Care: ICU Anticipated discharge: Home Within: within 72 hours -: 1. The care of a critical patient is a dynamic process. This note is a premium service representative synopsis but static in nature. The timeframe for treatments given in order is not necessary the actual time these treatments may have been done. 2. This patient requires critical care secondary to ongoing requirements for therapy not offered or safe outside the critical care environment. Transfer to a lower level of care with altered life or limb morbidity and mortality. 3. Multidisciplinary rounds completed. 4. ABCDE bundle addressed.
[2019-08-10] MEDS: FENTANYL CITRATE/PF 600 MCG/60 ML BAG IV PRN (21:46)
[2019-08-11] MEDS: IPRATROPIUM/ALBUTEROL 0.5-2.5 MG/3 ML AMPUL NEB SCH ×7 (00:01→23:45)
[2019-08-11] MEDS ORDERED: METOPROLOL TARTRATE PF/INJ 5 MG/5 ML SDV IV ONE (01:06)
[2019-08-11] MEDS: METOPROLOL TARTRATE PF/INJ 5 MG/5 ML SDV IV PRN ×2 (01:24→06:29)
[2019-08-11] MEDS: PROPOFOL 1,000 MG/100 ML INFUS..BTL IV PRN ×2 (04:55→17:57)
[2019-08-11] MEDS: HEPARIN SOD (PORCINE) 5,000 UNIT/ML 1 ML VIAL SUBCUT SCH ×3 (05:17→21:12)
[2019-08-11] MEDS: METHYLPREDNISOLONE INJ 125 MG/2 ML SDV IV SCH ×3 (05:18→21:11)
[2019-08-11] MEDS: PIPERACILLIN SODIUM/TAZOBACTAM 3.375 GM in NORMAL SALINE 100 ML IV SCH ×4 (05:18→23:01)
[2019-08-11] MEDS ORDERED: AMIODARONE HCL INJ 150 MG/3 ML VIAL IV ONE ×3 (06:42→06:49)
[2019-08-11 07:15] LABS: BLOOD UREA NITROGEN 65 mg/dL (7-20); CALCIUM 9.4 mg/dL (8.4-10.2); CHLORIDE 105 mmol/L (98-107); GLUCOSE 145 mg/dL (75-110); POTASSIUM 5.2 mmol/L (3.6-5.0)
[2019-08-11 07:16] LABS: HEMOGLOBIN 14.8 g/dL (13.5-17.0); MEAN CORPUSCULAR HEMOGLOBIN 30.7 pg (27.0-33.4); MEAN CORPUSCULAR HGB CONC 32.2 g/dL (32.0-36.0); MEAN CORPUSCULAR VOLUME 96 fl (80-97); PLATELET COUNT 162 10^3/uL (150-450); RED BLOOD COUNT 4.82 10^6/uL (4.35-5.55); RED CELL DISTRIBUTION WIDTH 14.2 % (11.5-14.0); WHITE BLOOD COUNT 10.5 10^3/uL (4.0-10.5)
[2019-08-11 07:25] LABS: ANION GAP 3 (5-19)
[2019-08-11 07:26] LABS: CARBON DIOXIDE 45 mmol/L (22-30)
[2019-08-11] MEDS: DEXTROSE 5%-WATER 500 ML with AMIODARONE HCL 900 MG IV PRN ×2 (07:37)
[2019-08-11] MEDS ORDERED: AMIODARONE HCL 150 MG in DEXTROSE 5%-WATER 100 ML IV ONE (07:45)
[2019-08-11 07:47] LABS: ABSOLUTE LYMPHOCYTES# (MANUAL) 0.4 10^3/uL (0.5-4.7); ABSOLUTE MONOCYTES # (MANUAL) 0.1 10^3/uL (0.1-1.4); BASOPHILS % (MANUAL) 0 % (0-2); EOSINOPHILS % (MANUAL) 0 % (0-6); LYMPHOCYTES % (MANUAL) 4 % (13-45); MONOCYTES % (MANUAL) 1 % (3-13); SEGMENTED NEUTROPHILS % (MAN) 95 % (42-78); TOTAL CELLS COUNTED 100
[2019-08-11 07:48] LABS: POLYCHROMASIA SLIGHT; RBC MORPHOLOGY COMMENT NORMO-CYTIC/CHROMIC
[2019-08-11 07:52] LABS: PLATELET COMMENT ADEQUATE
--- NOTE | 2019-08-11 08:17 | RADIOLOGY REPORT (SQ) ---
EXAM DESCRIPTION: CHEST SINGLE VIEW COMPLETED DATE/TIME: 08/11/2019 7:27 am REASON FOR STUDY: v tach COMPARISON: 08/09/2019. EXAM PARAMETERS: NUMBER OF VIEWS: One view. TECHNIQUE: Single frontal radiographic view of the chest acquired. RADIATION DOSE: NA LIMITATIONS: None. FINDINGS: LUNGS AND PLEURA: Faint densities in the lung bases. No pleural effusion. No pneumothora x. MEDIASTINUM AND HILAR STRUCTURES: No masses. Contour normal. HEART AND VASCULAR STRUCTURES: Heart normal in size. Normal vasculature. BONES: No acute findings. HARDWARE: Stable endotracheal tube, nasogastric tube, and central line. OTHER: No other significant finding. IMPRESSION: NO CHANGE IN APPEARANCE OF THE CHEST. TECHNICAL DOCUMENTATION: JOB ID: [id number] [employer]- All Rights Reserved Reading location - IP/workstation name: [email or web address]
[2019-08-11] MEDS: FAMOTIDINE 20 MG TABLET NG SCH ×2 (09:43→17:23)
[2019-08-11] MEDS: LEVOFLOXACIN 500 MG/D5W RTU 500 MG/100 ML RTUPB IV SCH (09:44)
[2019-08-11] MEDS ORDERED: LORAZEPAM INJ 2 MG/1 ML VIAL ONE (09:49)
--- NOTE | 2019-08-11 13:59 | PDOC CRITICAL CARE PROG REPORT ---
General Date:: 08/11/19 ICU Day:: 5 Ventilator Day:: 3 Resuscitation Status: Full Code Reason for ICU Addmission:: COPD exacerbation, acute on chronic respiratory failure. - Medications: Medications reviewed and adjusted accordingly: Yes Physical Exam Vital Signs: Temp Pulse Resp BP Pulse Ox 98.8 F 72 12 120/74 94 08/11/19 12:00 08/11/19 12:00 08/11/19 12:00 08/11/19 12:00 08/11/19 12:00 Intake & Output 08/10/19 08/11/19 08/12/19 06:59 06:59 06:59 Intake Total 646 919 275 Output Total 1765 1540 790 Balance -1119 -621 -515 Weight 105.7 kg 105 kg 105 kg Weight/Height Weight 105 kg Height 6 ft 1 in General appearance: PRESENT: no acute distress, well-developed, well-nourished Head exam: PRESENT: atraumatic, normocephalic Eye exam: PRESENT: conjunctiva pink, EOMI, PERRLA. ABSENT: scleral icterus Ear exam: PRESENT: normal external ear exam Mouth exam: PRESENT: moist, tongue midline Neck exam: ABSENT: carotid bruit, JVD, lymphadenopathy, thyromegaly Respiratory exam: PRESENT: clear to auscultation ashleigh. ABSENT: rales, rhonchi, wheezes Cardiovascular exam: PRESENT: RRR. ABSENT: diastolic murmur, rubs, systolic murmur Pulses: PRESENT: normal dorsalis pedis pul Vascular exam: PRESENT: normal capillary refill GI/Abdominal exam: PRESENT: normal bowel sounds, soft. ABSENT: distended, guarding, mass, organolmegaly, rebound, tenderness Rectal exam: PRESENT: deferred Extremities exam: PRESENT: full ROM. ABSENT: calf tenderness, clubbing, pedal edema Neurological exam: PRESENT: alert, awake, oriented to person, oriented to place, oriented to time, oriented to situation, CN II-XII grossly intact. ABSENT: motor sensory deficit Psychiatric exam: PRESENT: appropriate affect, normal mood. ABSENT: homicidal ideation, suicidal ideation Skin exam: PRESENT: dry, intact, warm. ABSENT: cyanosis, rash Tubes/Lines: PRESENT: Endotracheal Tube, Central Line, Nasogastic Tube Laboratory/Radiographs Laboratory Results: 08/11/19 06:40 08/11/19 06:40 08/11/19 08/11/19 06:40 06:40 WBC 10.5 RBC 4.82 Hgb 14.8 Hct 46.0 MCV 96 MCH 30.7 MCHC 32.2 RDW 14.2 H Plt Count 162 Seg Neutrophils % Not Reportable Sodium 152.6 H Potassium 5.2 H Chloride 105 Carbon Dioxide 45 H* Anion Gap 3 L BUN 65 H Creatinine 1.07 Est GFR ( Amer) > 60 Glucose 145 H Calcium 9.4 08/07/19 08/08/19 08/08/19 18:49 00:36 07:02 Troponin I 0.369 0.636 0.565 NT-Pro-B Natriuret Pep 83471 H 97464 H 08/08/19 12:56 Troponin I 0.445 NT-Pro-B Natriuret Pep Impressions: Chest X-Ray 08/11/19 00:00 IMPRESSION: NO CHANGE IN APPEARANCE OF THE CHEST. All labs, radiographs, diagnostic studies and EKGs were personally reviewed: Yes In addition, reports of radiographic and diagnostic studies were read: Yes Assessment and Plan - Diagnosis (1) Acute respiratory failure with hypercapnia Is this a current diagnosis for this admission?: Yes Plan: Continue to wean ventilator as able. Maintain SPO2 88-92%. (2) Chronic obstructive pulmonary disease (COPD) Qualifiers: COPD type: COPD with acute lower respiratory infection Qualified Code(s): J44.0 - Chronic obstructive pulmonary disease with (acute) lower respiratory infection Is this a current diagnosis for this admission?: Yes Plan: Continue ABX for presumed lower lobe pneumonia. Wean vent as able. Patient likely has baseline hypercapnea at home but still grossly elevated on last ABG. (3) Elevated troponin level Is this a current diagnosis for this admission?: Yes Plan: Levels peaked yesterday and have begun to drop. Continue to trend. (4) Sinus tachycardia seen on manager cardiac cath Is this a current diagnosis for this admission?: Yes Plan: Episode of SVT overnight correcting with amiodarone bolus/drip. HR in 90's now. WIll consult cardiology today for new onset arrhythmia. (5) Hyperkalemia Is this a current diagnosis for this admission?: Yes Plan: Unchanged today. Will transition to supplemental tube feed with less Na and K (Nepro). (6) Hypernatremia Is this a current diagnosis for this admission?: Yes Plan: Unchanged today. Will transition to supplemental tube feed with less Na and K (Nepro). Critical Time Critical Time (minutes): 75 Level of Care: ICU Anticipated discharge: Home Within: within 72 hours -: 1. The care of a critical patient is a dynamic process. This note is a communications representative synopsis but static in nature. The timeframe for treatments given in order is not necessary the actual time these treatments may have been done. 2. This patient requires critical care secondary to ongoing requirements for therapy not offered or safe outside the critical care environment. Transfer to a lower level of care with altered life or limb morbidity and mortality. 3. Multidisciplinary rounds completed. 4. ABCDE bundle addressed.
[2019-08-11] MEDS: FENTANYL CITRATE/PF 600 MCG/60 ML BAG IV PRN (14:14)
[2019-08-11] MEDS ORDERED: FENTANYL CITRATE/PF 600 MCG/60 ML BAG IV PRN (17:23)
[2019-08-12] MEDS: DEXTROSE 5%-WATER 500 ML with AMIODARONE HCL 900 MG IV PRN ×2 (01:24)
[2019-08-12] MEDS: IPRATROPIUM/ALBUTEROL 0.5-2.5 MG/3 ML AMPUL NEB SCH ×5 (04:11→20:04)
[2019-08-12 04:46] LABS: HEMATOCRIT 45.8 % (37.9-51.0); HEMOGLOBIN 14.9 g/dL (13.5-17.0); MEAN CORPUSCULAR HEMOGLOBIN 31.1 pg (27.0-33.4); MEAN CORPUSCULAR HGB CONC 32.7 g/dL (32.0-36.0); MEAN CORPUSCULAR VOLUME 95 fl (80-97); PLATELET COUNT 147 10^3/uL (150-450); RED BLOOD COUNT 4.81 10^6/uL (4.35-5.55); RED CELL DISTRIBUTION WIDTH 14.3 % (11.5-14.0); WHITE BLOOD COUNT 15.4 10^3/uL (4.0-10.5)
[2019-08-12 05:06] LABS: BLOOD UREA NITROGEN 56 mg/dL (7-20); CALCIUM 9.6 mg/dL (8.4-10.2); CHLORIDE 104 mmol/L (98-107); GLUCOSE 137 mg/dL (75-110); POTASSIUM 4.6 mmol/L (3.6-5.0)
[2019-08-12] MEDS: PIPERACILLIN SODIUM/TAZOBACTAM 3.375 GM in NORMAL SALINE 100 ML IV SCH ×2 (05:11→14:04)
[2019-08-12 05:16] LABS: ANION GAP 5 (5-19)
[2019-08-12] MEDS: METHYLPREDNISOLONE INJ 125 MG/2 ML SDV IV SCH (05:16)
[2019-08-12] MEDS: HEPARIN SOD (PORCINE) 5,000 UNIT/ML 1 ML VIAL SUBCUT SCH ×3 (05:16→22:31)
[2019-08-12 05:18] LABS: CARBON DIOXIDE 44 mmol/L (22-30)
[2019-08-12] MEDS ORDERED: FUROSEMIDE INJ/PF 20 MG/2 ML SDV IV ONE (08:28)
--- NOTE | 2019-08-12 08:44 | PDOC CRITICAL CARE PROG REPORT ---
General Date:: 08/12/19 ICU Day:: 6 Resuscitation Status: Full Code Reason for ICU Addmission:: COPD exacerbation, acute on chronic respiratory failure. - Medications: Medications reviewed and adjusted accordingly: Yes Physical Exam Vital Signs: Temp Pulse Resp BP Pulse Ox 99.9 F 103 H 20 148/87 H 91 L 08/12/19 08:00 08/12/19 08:00 08/12/19 08:00 08/12/19 08:00 08/12/19 08:00 Intake & Output 08/11/19 08/12/19 08/13/19 06:59 06:59 06:59 Intake Total 919 1168 Output Total 1540 2590 245 Balance -621 -1422 -245 Weight 105 kg 105 kg Weight/Height Weight 105 kg Height 6 ft 1 in General appearance: PRESENT: no acute distress, well-developed, well-nourished Head exam: PRESENT: atraumatic, normocephalic Eye exam: PRESENT: conjunctiva pink, EOMI, PERRLA. ABSENT: scleral icterus Ear exam: PRESENT: normal external ear exam Mouth exam: PRESENT: moist, tongue midline Neck exam: ABSENT: carotid bruit, JVD, lymphadenopathy, thyromegaly Respiratory exam: PRESENT: crackles, unlabored. ABSENT: rales, rhonchi, wheezes Cardiovascular exam: PRESENT: RRR. ABSENT: diastolic murmur, rubs, systolic murmur Pulses: PRESENT: normal dorsalis pedis pul Vascular exam: PRESENT: normal capillary refill GI/Abdominal exam: PRESENT: normal bowel sounds, soft. ABSENT: distended, guarding, mass, organolmegaly, rebound, tenderness Rectal exam: PRESENT: deferred Extremities exam: PRESENT: full ROM, +1 edema. ABSENT: calf tenderness, clubbing, pedal edema Neurological exam: PRESENT: alert, awake, oriented to person, oriented to place, oriented to time, oriented to situation, CN II-XII grossly intact. ABSENT: motor sensory deficit Psychiatric exam: PRESENT: appropriate affect, normal mood. ABSENT: homicidal ideation, suicidal ideation Skin exam: PRESENT: dry, intact, warm. ABSENT: cyanosis, rash Tubes/Lines: PRESENT: Central Line Laboratory/Radiographs Laboratory Results: 08/12/19 04:39 08/12/19 04:39 08/12/19 08/12/19 04:39 04:39 WBC 15.4 H RBC 4.81 Hgb 14.9 Hct 45.8 MCV 95 MCH 31.1 MCHC 32.7 RDW 14.3 H Plt Count 147 L Sodium 153.2 H Potassium 4.6 Chloride 104 Carbon Dioxide 44 H* Anion Gap 5 BUN 56 H Creatinine 0.96 Est GFR ( Amer) > 60 Glucose 137 H Calcium 9.6 08/07/19 08/08/19 08/08/19 18:49 00:36 07:02 Troponin I 0.369 0.636 0.565 NT-Pro-B Natriuret Pep 01168 H 64031 H 08/08/19 12:56 Troponin I 0.445 NT-Pro-B Natriuret Pep Impressions: Chest X-Ray 08/11/19 00:00 IMPRESSION: NO CHANGE IN APPEARANCE OF THE CHEST. All labs, radiographs, diagnostic studies and EKGs were personally reviewed: Yes In addition, reports of radiographic and diagnostic studies were read: Yes Assessment and Plan - Diagnosis (1) Acute respiratory failure with hypercapnia Is this a current diagnosis for this admission?: Yes Plan: Extubated yesterday. Doing well overll. Maintain SPO2 > 88% on supplemental ox ygen as needed. (2) Chronic obstructive pulmonary disease (COPD) Qualifiers: COPD type: COPD with acute lower respiratory infection Qualified Code(s): J44.0 - Chronic obstructive pulmonary disease with (acute) lower respiratory i nfection Is this a current diagnosis for this admission?: Yes Plan: Continue ABX for presumed lower lobe pneumonia. Will discontinue steroids today. Breathing treatment this morning and Lasix 20mg IV now for overall edema. (3) Elevated troponin level Is this a current diagnosis for this admission?: Yes Plan: Resolved (4) Sinus tachycardia seen on cardiac monitor technician Is this a current diagnosis for this admission?: Yes Plan: Continues on amiodarone. Consult cardiology for recommendations (5) Hyperkalemia Is this a current diagnosis for this admission?: Yes Plan: Improved with decreased supplementation (changing Vital 1.5 to Nepro). (6) Hypernatremia Is this a current diagnosis for this admission?: Yes Plan: Na remains mildly elevated. Cardiac/Renal diet today. Critical Time Critical Time (minutes): 60 Level of Care: ICU Anticipated discharge: Home Within: within 72 hours -: 1. The care of a critical patient is a dynamic process. This note is a sales donor recruitment representative synopsis but static in nature. The timeframe for treatments given in order is not necessary the actual time these treatments may have been done. 2. This patient requires critical care secondary to ongoing requirements for therapy not offered or safe outside the critical care environment. Transfer to a lower level of care with altered life or limb morbidity and mortality. 3. Multidisciplinary rounds completed. 4. ABCDE bundle addressed.
[2019-08-12] MEDS: LEVOFLOXACIN 500 MG/D5W RTU 500 MG/100 ML RTUPB IV SCH (09:24)
[2019-08-12] MEDS: FAMOTIDINE 20 MG TABLET NG SCH ×2 (10:23→18:06)
[2019-08-12] MEDS ORDERED: NIFEDIPINE 30 MG TAB.ER.24 PO SCH (14:00)
--- NOTE | 2019-08-12 16:04 | PDOC CONSULTATION ---
Consultation Consult Date: 08/12/19 Provider Consulted: LAMINE MARTINEZ Consult reason:: Wide-complex tachycardia History of Present Illness Admission Date/PCP: 08/07/19 22:09 History of Present Illness: LAISHA RODRIGUEZ is a 59 year old male with the following active problems 1. Longstanding cigarette smoking-more than 50 pack years 2. COPD 3. Pneumonia 4. Respiratory failure 59-year-old male who was admitted to the hospital for COPD, pneumonia and respiratory failure. He was intubated and while on the ventilator he developed narrow complex tachycardia which converted subsequently to wide-complex tachycardia. This occurred at approximately 6:25 AM 08/11/2019. There was apparently no hemodynamic embarrassment. Patient was initiated on intravenous amiodarone and the rhythm terminated. It is difficult to obtain any history from this patient. No prior cardiac history is reported. Patient is presently nonverbal as he is just extubated. There is not possible to obtain review of systems or family history or other aspects of medical history. History is per chart and per other care providers. No family is present. Past Medical History Cardiac Medical History: Denies: Coronary Artery Disease, Myocardial Infarction, Hypertension Pulmonary Medical History: Denies: Asthma, Bronchitis, Chronic Obstructive Pulmonary Disease (COPD), Pneumonia, Tuberculosis Neurological Medical History: Denies: Seizures Musculoskeltal Medical History: Denies: Arthritis Hematology: Denies: Anemia Past Surgical History Past Surgical History: Reports: Other - I&D of abdominal abscess Social History Lives with: Alone Smoking Status: Current Every Day Smoker Cigarettes Packs Per Day: 1.5 Number of Years Smokin Last Time Smoked: 2 weeks ago Frequency of Alcohol Use: None Hx Recreational Drug Use: No Hx Prescription Drug Abuse: No - Advance Directive Resuscitation Status: Full Code Family History Family History: Reviewed & Not Pertinent Parental Family History Reviewed: No - Unable to obtain. Patient has just been extubated Children Family History Reviewed: NA Sibling(s) Family History Reviewed.: NA Medication/Allergy Home Medications: No Home Medications 08/08/19 Allergies/Adverse Reactions: No Known Allergies Allergy (Verified 12/27/13 15:08) Review of Systems ROS unobtainable: Due to mental status Physical Exam Vital Signs: Temp Pulse Resp BP Pulse Ox 99.7 F 92 23 H 139/89 H 89 L 08/12/19 14:12 08/12/19 12:53 08/12/19 15:13 08/12/19 15:13 08/12/19 15:13 Intake & Output 08/11/19 08/12/19 08/13/19 06:59 06:59 06:59 Intake Total 919 1261 316 Output Total 1546 7910 1400 Balance -395 -9077 -6600 Weight 105 kg 105 kg General appearance: PRESENT: no acute distress Head exam: PRESENT: atraumatic, normocephalic Eye exam: PRESENT: EOMI Mouth exam: PRESENT: moist Respiratory exam: PRESENT: accessory muscle use, decreased breath sounds, prolonged expiratory phas, rhonchi, tachypnea Cardiovascular exam: PRESENT: RRR, +S1, +S2 Pulses: PRESENT: normal radial pulses GI/Abdominal exam: PRESENT: soft Rectal exam: PRESENT: deferred Musculoskeletal exam: PRESENT: normal inspection Neurological exam: PRESENT: altered Psychiatric exam: PRESENT: agitated Skin exam: PRESENT: dry, normal color Results Laboratory Results: 08/12/19 04:39 08/12/19 04:39 08/12/19 08/12/19 04:39 04:39 WBC 15.4 H RBC 4.81 Hgb 14.9 Hct 45.8 MCV 95 MCH 31.1 MCHC 32.7 RDW 14.3 H Plt Count 147 L Sodium 153.2 H Potassium 4.6 Chloride 104 Carbon Dioxide 44 H* Anion Gap 5 BUN 56 H Creatinine 0.96 Est GFR ( Amer) > 60 Glucose 137 H Calcium 9.6 08/09/19 23:18 Sputum Gram Stain - Final 08/09/19 23:18 Sputum Sputum Culture - Final Yeast, Not Izabel Albicans Normal Ciara Absent 08/07/19 08/08/19 08/08/19 18:49 00:36 07:02 Troponin I 0.369 0.636 0.565 NT-Pro-B Natriuret Pep 77117 H 91748 H 08/08/19 12:56 Troponin I 0.445 NT-Pro-B Natriuret Pep EKG Comments: Twelve-lead EKG 06/19/2019 with repeat were reviewed by me and shows sinus tach ycardia Telemetry tracings from the morning of 08/11/2019 from 625 onwards show the presence of sinus rhythm with abrupt onset of atrial tachycardia likely at 6:09 AM. It appears that the wide-complex tachycardia is due to bundle branch aberrancy while the patient has been tachycardia and is unlikely to be ventricular tachycardia. At 6:26 AM wide-complex tachycardia is noted to abruptly change into a narrow complex tachycardia with suggested supraventricular tachycardia and likely atrial tachycardia as a mechanism with right bundle branch aberrancy likely accounting for the wide-complex rhythm. Impressions: Chest X-Ray 08/11/19 00:00 IMPRESSION: NO CHANGE IN APPEARANCE OF THE CHEST. Assessment & Plan - Diagnosis (1) Wide-complex tachycardia Is this a current diagnosis for this admission?: Yes Plan: Wide-complex tachycardia is likely atrial tachycardia with bundle branch aberrancy Patient is noted to have episodes of supraventricular tachycardia Baseline EKG shows sinus rhythm likely normal AV conduction. Given the above and especially with respiratory distress in this patient with COPD atrial tachycardias are more likely as well. Given the fact that the tachycardia has terminated and given compromised respi ratory status and lung issues would not persist with amiodarone therapy. Should patient continue to have episodes of this tachycardia would recommend calcium channel guerrero such as diltiazem CD at 180 mg in isolation or together with low-dose selective beta blockers such as metoprolol - Notes Notes: 1. Discontinue amiodarone 2. Should the patient have paroxysmal supraventricular tachycardia episodes or even wide-complex tachycardia episodes would recommend suppressing atrial tachycardia with calcium channel blockers are our beta-blockers as noted above. 3 based on clinical improvement and echocardiogram can be pursued
[2019-08-12] MEDS ORDERED: DILTIAZEM HCL/D5W 125 MG/125 ML RTUINJ IV ONE (16:31)
[2019-08-12] MEDS: DILTIAZEM HCL/D5W 125 MG/125 ML RTUINJ IV PRN (16:40)
[2019-08-12] MEDS ORDERED: DILTIAZEM HCL INJ 25 MG/5 ML VIAL ONE (16:41)
[2019-08-12 19:02] LABS: ARTERIAL BLOOD BASE EXCESS 15.2 mmol/L; ARTERIAL BLOOD H2CO3 1.78 mmol/L (1.05-1.35); ARTERIAL BLOOD HCO3 42.1 mmol/L (20-24); ARTERIAL BLOOD O2 SATURATION 84.2 % (94-98); ARTERIAL BLOOD PH 7.47 (7.35-7.45); ARTERIAL BLOOD PO2 46.9 mmHg (80-100); ARTERIAL BLOOD TOTAL CO2 43.9 mmol/L (23-27)
[2019-08-12 19:03] LABS: ARTERIAL BLOOD FIO2 5L
[2019-08-13] MEDS: IPRATROPIUM/ALBUTEROL 0.5-2.5 MG/3 ML AMPUL NEB SCH ×6 (00:19→20:19)
[2019-08-13 02:21] LABS: BLOOD UREA NITROGEN 66 mg/dL (7-20); CALCIUM 9.5 mg/dL (8.4-10.2); CHLORIDE 106 mmol/L (98-107); GLUCOSE 135 mg/dL (75-110); PHOSPHORUS 3.6 mg/dL (2.5-4.5); POTASSIUM 4.6 mmol/L (3.6-5.0)
[2019-08-13 02:30] LABS: ANION GAP 5 (5-19)
[2019-08-13 02:31] LABS: CARBON DIOXIDE 42 mmol/L (22-30)
[2019-08-13] MEDS: DILTIAZEM HCL/D5W 125 MG/125 ML RTUINJ IV PRN (05:10)
[2019-08-13] MEDS: HEPARIN SOD (PORCINE) 5,000 UNIT/ML 1 ML VIAL SUBCUT SCH (06:16)
[2019-08-13] MEDS: LEVOFLOXACIN 500 MG/D5W RTU 500 MG/100 ML RTUPB IV SCH (10:01)
[2019-08-13 10:07] LABS: C DIFFICILE GDH NEGATIVE (NEGATIVE)
[2019-08-13] MEDS ORDERED: FUROSEMIDE INJ/PF 20 MG/2 ML SDV IV ONE (12:14)
--- NOTE | 2019-08-13 12:18 | PDOC CRITICAL CARE PROG REPORT ---
General Date:: 08/13/19 ICU Day:: 7 Resuscitation Status: Full Code Review of systems relevant to events:: Patient much more awake and alert today. Was placed on BiPAP overnight but labs and ABG were at his expected levels. Reason for ICU Addmission:: COPD exacerbation, acute on chronic respiratory failure. - Medications: Medications reviewed and adjusted accordingly: Yes Physical Exam Vital Signs: Temp Pulse Resp BP Pulse Ox 96.6 F L 104 H 21 H 95/73 L 90 L 08/13/19 10:00 08/13/19 11:44 08/13/19 11:44 08/13/19 11:07 08/13/19 11:07 Intake & Output 08/12/19 08/13/19 08/14/19 06:59 06:59 06:59 Intake Total 1261 934 350 Output Total 2590 1401 Balance -1329 -467 350 Weight 105 kg 104.2 kg Weight/Height Weight 104.2 kg Height 6 ft 1 in General appearance: PRESENT: no acute distress, well-developed, well-nourished Head exam: PRESENT: atraumatic, normocephalic Eye exam: PRESENT: conjunctiva pink, EOMI, PERRLA. ABSENT: scleral icterus Ear exam: PRESENT: normal external ear exam Mouth exam: PRESENT: moist, tongue midline Neck exam: ABSENT: carotid bruit, JVD, lymphadenopathy, thyromegaly Respiratory exam: PRESENT: clear to auscultation ashleigh, wheezes, other - barrel chest with evidence of COPD. ABSENT: rales, rhonchi Cardiovascular exam: PRESENT: RRR. ABSENT: diastolic murmur, rubs, systolic murmur Pulses: PRESENT: normal dorsalis pedis pul Vascular exam: PRESENT: normal capillary refill GI/Abdominal exam: PRESENT: normal bowel sounds, soft. ABSENT: distended, guarding, mass, organolmegaly, rebound, tenderness Rectal exam: PRESENT: deferred Extremities exam: PRESENT: full ROM. ABSENT: calf tenderness, clubbing, pedal edema Neurological exam: PRESENT: alert, awake, oriented to person, oriented to place, oriented to time, oriented to situation, CN II-XII grossly intact. ABSENT: motor sensory deficit Psychiatric exam: PRESENT: appropriate affect, normal mood. ABSENT: homicidal ideation, suicidal ideation Skin exam: PRESENT: dry, intact, warm. ABSENT: cyanosis, rash Laboratory/Radiographs Laboratory Results: 08/12/19 04:39 08/13/19 01:44 08/12/19 08/13/19 18:40 01:44 Carbonic Acid 1.78 H HCO3/H2CO3 Ratio 23:1 ABG pH 7.47 H ABG pCO2 59.0 H ABG pO2 46.9 L ABG HCO3 42.1 H ABG O2 Saturation 84.2 L ABG Base Excess 15.2 FiO2 5L Sodium 153.2 H Potassium 4.6 Chloride 106 Carbon Dioxide 42 H* Anion Gap 5 BUN 66 H Creatinine 0.97 Est GFR ( Amer) > 60 Glucose 135 H Calcium 9.5 Phosphorus 3.6 Magnesium 2.5 H 08/07/19 22:05 Blood Blood Culture - Final NO GROWTH IN 5 DAYS 08/07/19 20:55 Blood Blood Culture - Final NO GROWTH IN 5 DAYS 08/09/19 23:18 Sputum Gram Stain - Final 08/09/19 23:18 Sputum Sputum Culture - Final Yeast, Not Izabel Albicans Normal Ciara Absent 08/07/19 08/08/19 08/08/19 18:49 00:36 07:02 Troponin I 0.369 0.636 0.565 NT-Pro-B Natriuret Pep 30335 H 85667 H 08/08/19 12:56 Troponin I 0.445 NT-Pro-B Natriuret Pep Impressions: Chest X-Ray 08/11/19 00:00 IMPRESSION: NO CHANGE IN APPEARANCE OF THE CHEST. All labs, radiographs, diagnostic studies and EKGs were personally reviewed: Yes In addition, reports of radiographic and diagnostic studies were read: Yes Assessment and Plan - Diagnosis (1) Acute respiratory failure with hypercapnia Is this a current diagnosis for this admission?: Yes Plan: Maintain SPO2 > 88% on supplemental oxygen as needed. (2) Chronic obstructive pulmonary disease (COPD) Qualifiers: COPD type: COPD with acute lower respiratory infection Qualified Code(s): J44.0 - Chronic obstructive pulmonary disease with (acute) lower respiratory infection Is this a current diagnosis for this admission?: Yes Plan: Continue ABX for presumed lower lobe pneumonia. Original plan was 5 days from identification, however, as his WBC elevated today will continue and trend WBC. Lasix 20mg again today. (3) Elevated troponin level Is this a current diagnosis for this admission?: Yes Plan: Resolved (4) Sinus tachycardia seen on lunchroom monitor Is this a current diagnosis for this admission?: Yes Plan: Amiodarone discontinued yesterday per cardiology and patient had near immediate recurrence of tachyarrhythmia. Was transitioned to diltiazem IV drip. Will convert to PO today with 60mg diltiazem TID. WIll add metoprolol should it be reqiured for additional rate control (5) Hyperkalemia Is this a current diagnosis for this admission?: Yes Plan: Improved with decreased supplementation (changing Vital 1.5 to Nepro). (6) Hypernatremia Is this a current diagnosis for this admission?: Yes Plan: Na remains mildly elevated. Cardiac/Renal diet today. Plan Summary: Plan to transfer to hospitalist service/floor today Critical Time Critical Time (minutes): 30 Level of Care: ICU Anticipated discharge: Home Within: within 48 hours -: 1. The care of a critical patient is a dynamic process. This note is a healthcare sales representative synopsis but static in nature. The timeframe for treatments given in order is not necessary the actual time these treatments may have been done. 2. This patient requires critical care secondary to ongoing requirements for therapy not offered or safe outside the critical care environment. Transfer to a lower level of care with altered life or limb morbidity and mortality. 3. Multidisciplinary rounds completed. 4. ABCDE bundle addressed.
--- NOTE | 2019-08-13 12:21 | PDOC PROGRESS REPORT ---
Subjective Progress Note for:: 08/13/19 Subjective:: Patient has been extubated. He is sitting upright in a chair. He looks exhausted. No complaints described Last 24 hours of telemetry had occasional runs of supraventricular tachycardia likely atrial tachycardia. He was started on intravenous diltiazem at 10 mg i nfusion. He was subsequently started on Procardia XL after stopping the diltiazem but he continued to have runs of atrial tachycardia and had to be put back on diltiazem. No symptoms voiced. Reason For Visit: COPD EXACERBATION,RESPIRATORY FAILURE Physical Exam Vital Signs: Temp Pulse Resp BP Pulse Ox 96.6 F L 104 H 21 H 95/73 L 90 L 08/13/19 10:00 08/13/19 11:44 08/13/19 11:44 08/13/19 11:07 08/13/19 11:07 Intake & Output 08/12/19 08/13/19 08/14/19 06:59 06:59 06:59 Intake Total 1261 934 350 Output Total 2590 1401 Balance -1329 -467 350 Weight 105 kg 104.2 kg General appearance: PRESENT: no acute distress, obese Head exam: PRESENT: atraumatic, normocephalic Eye exam: PRESENT: EOMI Mouth exam: PRESENT: neck supple Respiratory exam: PRESENT: prolonged expiratory phas, rhonchi, symmetrical, wheezes, other - Barrel-shaped chest Cardiovascular exam: PRESENT: RRR, +S1, +S2 GI/Abdominal exam: PRESENT: soft Rectal exam: PRESENT: deferred Neurological exam: PRESENT: alert, altered, oriented to person, oriented to place, oriented to time, oriented to situation Skin exam: PRESENT: dry Results Laboratory Results: 08/12/19 04:39 08/13/19 01:44 08/12/19 08/13/19 18:40 01:44 Carbonic Acid 1.78 H HCO3/H2CO3 Ratio 23:1 ABG pH 7.47 H ABG pCO2 59.0 H ABG pO2 46.9 L ABG HCO3 42.1 H ABG O2 Saturation 84.2 L ABG Base Excess 15.2 FiO2 5L Sodium 153.2 H Potassium 4.6 Chloride 106 Carbon Dioxide 42 H* Anion Gap 5 BUN 66 H Creatinine 0.97 Est GFR ( Amer) > 60 Glucose 135 H Calcium 9.5 Phosphorus 3.6 Magnesium 2.5 H 08/07/19 22:05 Blood Blood Culture - Final NO GROWTH IN 5 DAYS 08/07/19 20:55 Blood Blood Culture - Final NO GROWTH IN 5 DAYS 08/09/19 23:18 Sputum Gram Stain - Final 08/09/19 23:18 Sputum Sputum Culture - Final Yeast, Not Izabel Albicans Normal Ciara Absent 08/07/19 08/08/19 08/08/19 18:49 00:36 07:02 Troponin I 0.369 0.636 0.565 NT-Pro-B Natriuret Pep 36073 H 90769 H 08/08/19 12:56 Troponin I 0.445 NT-Pro-B Natriuret Pep EKG Comments: Review of telemetry presently shows sinus rhythm and sinus tachycardia at about 90 to 103 bpm. Overnight telemetry also shows episodes of SVT likely atrial tachycardia and short episodes. Dominant rhythm is still sinus rhythm and sinus tachycardia. Impressions: Chest X-Ray 08/11/19 00:00 IMPRESSION: NO CHANGE IN APPEARANCE OF THE CHEST. Assessment & Plan - Diagnosis (1) Wide-complex tachycardia Is this a current diagnosis for this admission?: Yes Plan: Would recommend starting diltiazem 60 mg p.o. every 8 and then transition to diltiazem CD 180 mg daily. May consider additional beta-blockade with metoprolol 12.5 mg p.o. twice daily to suppress atrial tachycardia Given his compromised respiratory status patient will have multiple triggers for atrial tachycardia especially due to significant lung disease and pulmonary hypertension likely - Notes Notes: Wean off intravenous diltiazem. Start oral diltiazem as described above. Continue to watch on telemetry. Off amiodarone.
[2019-08-13] MEDS: DILTIAZEM HCL 60 MG TABLET PO SCH ×3 (13:03→21:35)
[2019-08-13] MEDS ORDERED: METOPROLOL TARTRATE PF/INJ 5 MG/5 ML SDV IV ONE ×2 (15:30→20:00)
[2019-08-14] MEDS: IPRATROPIUM/ALBUTEROL 0.5-2.5 MG/3 ML AMPUL NEB SCH ×7 (00:03→23:53)
[2019-08-14] MEDS: DILTIAZEM HCL 60 MG TABLET PO SCH ×3 (05:27→21:07)
[2019-08-14 06:06] LABS: HEMATOCRIT 35.4 % (37.9-51.0); MEAN CORPUSCULAR HEMOGLOBIN 30.4 pg (27.0-33.4); MEAN CORPUSCULAR HGB CONC 32.5 g/dL (32.0-36.0); MEAN CORPUSCULAR VOLUME 93 fl (80-97); PLATELET COUNT 131 10^3/uL (150-450); RED BLOOD COUNT 3.79 10^6/uL (4.35-5.55); RED CELL DISTRIBUTION WIDTH 14.2 % (11.5-14.0); WHITE BLOOD COUNT 19.9 10^3/uL (4.0-10.5)
[2019-08-14 06:14] LABS: BLOOD UREA NITROGEN 66 mg/dL (7-20); CALCIUM 8.6 mg/dL (8.4-10.2); GLUCOSE 99 mg/dL (75-110); POTASSIUM 3.9 mmol/L (3.6-5.0)
[2019-08-14 06:39] LABS: CARBON DIOXIDE 39 mmol/L (22-30); CHLORIDE 100 mmol/L (98-107)
[2019-08-14 06:43] LABS: ANION GAP 3 (5-19)
[2019-08-14 07:20] LABS: ABSOLUTE LYMPHOCYTES# (MANUAL) 0.6 10^3/uL (0.5-4.7); ABSOLUTE MONOCYTES # (MANUAL) 1.2 10^3/uL (0.1-1.4); ANISOCYTOSIS SLIGHT; BAND NEUTROPHILS % (MANUAL) 3 % (3-5); BASOPHILS % (MANUAL) 0 % (0-2); EOSINOPHILS % (MANUAL) 0 % (0-6); HYPOCHROMASIA 1+; LYMPHOCYTES % (MANUAL) 3 % (13-45); MONOCYTES % (MANUAL) 6 % (3-13); SEGMENTED NEUTROPHILS % (MAN) 88 % (42-78); TOTAL CELLS COUNTED 100
[2019-08-14 07:21] LABS: PLATELET COMMENT DECREASED
[2019-08-14 07:28] LABS: HEMOGLOBIN 11.5 g/dL (13.5-17.0)
--- NOTE | 2019-08-14 11:39 | PDOC PROGRESS REPORT ---
Subjective Progress Note for:: 08/14/19 Subjective:: Patient sitting up in bed. No complaints noted. No distress noted. Overnight he had more episodes of likely atrial tachycardia.. Reason For Visit: COPD EXACERBATION,RESPIRATORY FAILURE Physical Exam Vital Signs: Temp Pulse Resp BP Pulse Ox 98.4 F 104 H 20 102/65 90 L 08/14/19 08:00 08/14/19 08:34 08/14/19 10:09 08/14/19 10:09 08/14/19 09:39 Intake & Output 08/13/19 08/14/19 08/15/19 06:59 06:59 06:59 Intake Total 934 3125 Output Total 1401 Balance -467 3125 Weight 104.2 kg 106.9 kg General appearance: PRESENT: obese Head exam: PRESENT: atraumatic, normocephalic Eye exam: PRESENT: EOMI Mouth exam: PRESENT: moist Respiratory exam: PRESENT: decreased breath sounds, prolonged expiratory phas, u nlabored Cardiovascular exam: PRESENT: RRR, +S1, +S2, tachycardia Pulses: PRESENT: normal radial pulses Rectal exam: PRESENT: deferred Neurological exam: PRESENT: oriented to person, oriented to time Skin exam: PRESENT: dry, normal color Results Laboratory Results: 08/14/19 05:40 08/14/19 05:40 08/14/19 08/14/19 05:40 05:40 WBC 19.9 H RBC 3.79 L Hgb 11.5 L D Hct 35.4 L MCV 93 MCH 30.4 MCHC 32.5 RDW 14.2 H Plt Count 131 L Seg Neutrophils % Not Reportable Sodium 142.4 Potassium 3.9 Chloride 100 Carbon Dioxide 39 H Anion Gap 3 L BUN 66 H Creatinine 0.78 Est GFR ( Amer) > 60 Glucose 99 Calcium 8.6 08/07/19 08/08/19 08/08/19 18:49 00:36 07:02 Troponin I 0.369 0.636 0.565 NT-Pro-B Natriuret Pep 28153 H 21985 H 08/08/19 12:56 Troponin I 0.445 NT-Pro-B Natriuret Pep Impressions: Chest X-Ray 08/11/19 00:00 IMPRESSION: NO CHANGE IN APPEARANCE OF THE CHEST. Assessment & Plan - Diagnosis (1) Wide-complex tachycardia Is this a current diagnosis for this admission?: Yes Plan: We will continue diltiazem to suppress atrial tachycardia. Can consider addition of beta-guerrero if necessary. Given his compromised respiratory status patient will have multiple triggers for atrial tachycardia especially due to significant lung disease and pulmonary hypertension likely
[2019-08-14] MEDS: METOPROLOL TARTRATE 25 MG TABLET PO SCH ×2 (12:16→21:07)
[2019-08-14] MEDS: LEVOFLOXACIN 500 MG/D5W RTU 500 MG/100 ML RTUPB IV SCH (12:16)
--- NOTE | 2019-08-14 14:25 | PDOC CRITICAL CARE PROG REPORT ---
General Date:: 08/14/19 ICU Day:: 8 Resuscitation Status: Full Code Events in the past 12 to 24 Hours:: No acute events overnight. Patient was switched from Diltiazem drip to PO route yesterday and his SBP decreased to the high 90's initially but it recovered quickly with no interventions. Reason for ICU Addmission:: COPD exacerbation, acute on chronic respiratory failure. - Medications: Medications reviewed and adjusted accordingly: Yes Physical Exam Vital Signs: Temp Pulse Resp BP Pulse Ox 98.2 F 109 H 19 123/77 93 08/14/19 12:00 08/14/19 12:25 08/14/19 12:25 08/14/19 12:00 08/14/19 12:25 Intake & Output 08/13/19 08/14/19 08/15/19 06:59 06:59 06:59 Intake Total 934 3125 Output Total 1401 Balance -467 3125 Weight 104.2 kg 106.9 kg Weight/Height Weight 106.9 kg Height 6 ft 1 in General appearance: PRESENT: no acute distress, well-developed, well-nourished Head exam: PRESENT: atraumatic, normocephalic Eye exam: PRESENT: conjunctiva pink, EOMI, PERRLA. ABSENT: scleral icterus Ear exam: PRESENT: normal external ear exam Mouth exam: PRESENT: moist, tongue midline Neck exam: ABSENT: carotid bruit, JVD, lymphadenopathy, thyromegaly Respiratory exam: PRESENT: crackles, wheezes. ABSENT: rales, rhonchi Cardiovascular exam: PRESENT: RRR. ABSENT: diastolic murmur, rubs, systolic murmur Pulses: PRESENT: normal dorsalis pedis pul Vascular exam: PRESENT: normal capillary refill GI/Abdominal exam: PRESENT: normal bowel sounds, soft. ABSENT: distended, guarding, mass, organolmegaly, rebound, tenderness Rectal exam: PRESENT: deferred Extremities exam: PRESENT: full ROM. ABSENT: calf tenderness, clubbing, pedal edema Neurological exam: PRESENT: alert, awake, oriented to person, oriented to place, oriented to time, oriented to situation, CN II-XII grossly intact. ABSENT: motor sensory deficit Psychiatric exam: PRESENT: appropriate affect, normal mood. ABSENT: homicidal ideation, suicidal ideation Skin exam: PRESENT: dry, intact, warm. ABSENT: cyanosis, rash Laboratory/Radiographs Laboratory Results: 08/14/19 05:40 08/14/19 05:40 08/14/19 08/14/19 05:40 05:40 WBC 19.9 H RBC 3.79 L Hgb 11.5 L D Hct 35.4 L MCV 93 MCH 30.4 MCHC 32.5 RDW 14.2 H Plt Count 131 L Seg Neutrophils % Not Reportable Sodium 142.4 Potassium 3.9 Chloride 100 Carbon Dioxide 39 H Anion Gap 3 L BUN 66 H Creatinine 0.78 Est GFR ( Amer) > 60 Glucose 99 Calcium 8.6 08/07/19 08/08/19 08/08/19 18:49 00:36 07:02 Troponin I 0.369 0.636 0.565 NT-Pro-B Natriuret Pep 18758 H 28054 H 08/08/19 12:56 Troponin I 0.445 NT-Pro-B Natriuret Pep Impressions: Chest X-Ray 08/11/19 00:00 IMPRESSION: NO CHANGE IN APPEARANCE OF THE CHEST. All labs, radiographs, diagnostic studies and EKGs were personally reviewed: Yes In addition, reports of radiographic and diagnostic studies were read: Yes Assessment and Plan - Diagnosis (1) Acute respiratory failure with hypercapnia Is this a current diagnosis for this admission?: Yes Plan: Maintain SPO2 > 88% on supplemental oxygen as needed. (2) Chronic obstructive pulmonary disease (COPD) Qualifiers: COPD type: COPD with acute lower respiratory infection Qualified Code(s): J44.0 - Chronic obstructive pulmonary disease with (acute) lower respiratory infection Is this a current diagnosis for this admission?: Yes Plan: Continue current therapy (3) Elevated troponin level Is this a current diagnosis for this admission?: Yes Plan: Resolved (4) Sinus tachycardia seen on personnel monitor Is this a current diagnosis for this admission?: Yes Plan: As his SBP has returned to a normal range (110-125 typically) he will be started on metoprolol 12.5mg PO BID as well to assist with rate control. (5) Hyperkalemia Is this a current diagnosis for this admission?: Yes Plan: Resolved (6) Hypernatremia Is this a current diagnosis for this admission?: Yes Plan: resolved Plan Summary: Patient comleted his 5 day course of ABX yesterday. WBC has increased the last 2 days while on levofloxacin despite the patient being completely asymptomatic. He reports having loose stool but C-dif was sent and it was negative. He is incontinent to urine and had a elkins catheter recently so I have ordered a UA with culture. Additionally, because he still have a productive cough (clear not green) I have ordered another CXR to evaluate his lungs. Will DC levofloxacin at this time and should his WBC continue to increase may have to consider st arting back on broad spectrum / repeat cultures. Critical Time Critical Time (minutes): 30 Level of Care: ICU Anticipated discharge: Home -: 1. The care of a critical patient is a dynamic process. This note is a school admissions representative synopsis but static in nature. The timeframe for treatments given in order is not necessary the actual time these treatments may have been done. 2. This patient requires critical care secondary to ongoing requirements for therapy not offered or safe outside the critical care environment. Transfer to a lower level of care with altered life or limb morbidity and mortality. 3. Multidisciplinary rounds completed. 4. ABCDE bundle addressed.
--- NOTE | 2019-08-14 15:56 | RADIOLOGY REPORT (SQ) ---
EXAM DESCRIPTION: CHEST SINGLE VIEW COMPLETED DATE/TIME: 08/14/2019 3:40 pm REASON FOR STUDY: leukocytosis, hypoxia; COMPARISON: 08/11/2019 FINDINGS: One-view chest AP portable upright. Cardiomegaly. Left basilar subsegmental atelectasis. Mild central vascular congestion. No pneumoth orax. Endotracheal and nasogastric tubes have been removed. Right IJ line remains in place. TECHNICAL DOCUMENTATION: JOB ID: [id number] Reading location - IP/workstation name: [email or web address]
[2019-08-14 17:00] LABS: APPEARANCE,URINE CLEAR; BILIRUBIN,URINE NEGATIVE (NEGATIVE); COLOR,URINE YELLOW; GLUCOSE, URINE NEGATIVE (NEGATIVE); KETONES,URINE NEGATIVE (NEGATIVE); LEUKOCYTE ESTERASE,URINE NEGATIVE (NEGATIVE); NITRITE,URINE NEGATIVE (NEGATIVE); PROTEIN,URINE NEGATIVE (NEGATIVE); UROBILINOGEN,URINE NEGATIVE mg/dL (<2.0)
[2019-08-15] MEDS: IPRATROPIUM/ALBUTEROL 0.5-2.5 MG/3 ML AMPUL NEB SCH ×3 (04:01→12:20)
[2019-08-15] MEDS: DILTIAZEM HCL 60 MG TABLET PO SCH ×3 (05:09→23:26)
--- NOTE | 2019-08-15 09:28 | PDOC PROGRESS REPORT ---
Subjective Progress Note for:: 08/15/19 Subjective:: Patient sitting up in bed. No complaints noted. No distress noted. Patient improved in clinical status patient was transferred out of the intensive care unit. Reason For Visit: COPD EXACERBATION,RESPIRATORY FAILURE Physical Exam Vital Signs: Temp Pulse Resp BP Pulse Ox 97.3 F 89 16 113/54 L 89 L 08/15/19 03:04 08/15/19 08:14 08/15/19 08:14 08/15/19 03:04 08/15/19 08:14 Intake & Output 08/14/19 08/15/19 08/16/19 06:59 06:59 06:59 Intake Total 3125 100 Output Total 575 Balance 3125 -475 Weight 106.9 kg 106.9 kg General appearance: PRESENT: obese Head exam: PRESENT: atraumatic, normocephalic Eye exam: PRESENT: conjunctiva pink, EOMI Ear exam: PRESENT: normal external ear exam Respiratory exam: PRESENT: decreased breath sounds, prolonged expiratory phas, symmetrical Cardiovascular exam: PRESENT: RRR, +S1, +S2 Pulses: PRESENT: normal radial pulses GI/Abdominal exam: PRESENT: soft Rectal exam: PRESENT: deferred Neurological exam: PRESENT: alert, awake, oriented to person, oriented to place, oriented to time, oriented to situation Skin exam: PRESENT: intact, normal color Results Laboratory Results: 08/14/19 05:40 08/14/19 05:40 08/14/19 16:40 Urine Color YELLOW Urine Appearance CLEAR Urine pH 6.0 Ur Specific [place] 1.020 Urine Protein NEGATIVE Urine Glucose (UA) NEGATIVE Urine Ketones NEGATIVE Urine Blood NEGATIVE Urine Nitrite NEGATIVE Ur Leukocyte Esterase NEGATIVE Urine WBC (Auto) 1 Urine RBC (Auto) 1 08/07/19 08/08/19 08/08/19 18:49 00:36 07:02 Troponin I 0.369 0.636 0.565 NT-Pro-B Natriuret Pep 86360 H 21694 H 08/08/19 12:56 Troponin I 0.445 NT-Pro-B Natriuret Pep Assessment & Plan - Diagnosis (1) Wide-complex tachycardia Is this a current diagnosis for this admission?: Yes Plan: We will continue diltiazem to suppress atrial tachycardia. Can consider addition of beta-guerrero if necessary. Given his compromised respiratory status patient will have multiple triggers for atrial tachycardia especially due to significant lung disease and pulmonary hypertension likely. Continue to monitor on telemetry while he is here to see if additional medication changes are necessary. - Notes Notes: Observe on telemetry for at least 24 hours
[2019-08-15] MEDS ORDERED: NICOTINE 21 MG/24 HR PATCH.TD24 TD PRN (12:08)
[2019-08-15] MEDS ORDERED: HYDRALAZINE HCL INJ/PF 20 MG/1 ML SDV IV PRN (12:08)
[2019-08-15] MEDS ORDERED: MAG HYDROX/AL HYDROX/SIMETH SUSP 30 ML UDCUP PO PRN (12:09)
[2019-08-15] MEDS ORDERED: LEVALBUTEROL HCL NEB 1.25 MG/3 ML AMPUL NEB PRN (12:11)
[2019-08-15] MEDS ORDERED: LEVALBUTEROL HCL NEB 0.63 MG/3 ML AMPUL NEB PRN (12:11)
--- NOTE | 2019-08-15 12:32 | PDOC PROGRESS REPORT ---
Subjective Progress Note for:: 08/15/19 Subjective:: Redd Kc 59 year old male with past medical history of COPD, heavy smoker, presented to ED complaining of shortness of breath, was found to have a pH of 7.11, CO2 95, was subsequently transferred to ICU where he was intubated. Extubated 08/11/2019. Transfer to floor 08/14/2019. 01/13/2019. No acute events overnight. Patient does not like to wear BiPAP stat ing that it makes him anxious. Still dependent on supplemental oxygen. Resting in bed in no apparent distress. Denies any fever, chills, nausea, vomiting, diarrhea, constipation or any urinary symptoms. Ambulatory and p.o. tolerant. Reason For Visit: COPD EXACERBATION,RESPIRATORY FAILURE Physical Exam Vital Signs: Temp Pulse Resp BP Pulse Ox 98.1 F 99 17 101/65 98 08/15/19 11:42 08/15/19 11:42 08/15/19 11:42 08/15/19 11:42 08/15/19 11:42 Intake & Output 08/14/19 08/15/19 08/16/19 06:59 06:59 06:59 Intake Total 3125 100 Output Total 575 Balance 3125 -475 Weight 106.9 kg 106.9 kg Results Laboratory Results: 08/14/19 05:40 08/14/19 05:40 08/14/19 16:40 Urine Color YELLOW Urine Appearance CLEAR Urine pH 6.0 Ur Specific [place] 1.020 Urine Protein NEGATIVE Urine Glucose (UA) NEGATIVE Urine Ketones NEGATIVE Urine Blood NEGATIVE Urine Nitrite NEGATIVE Ur Leukocyte Esterase NEGATIVE Urine WBC (Auto) 1 Urine RBC (Auto) 1 08/07/19 08/08/19 08/08/19 18:49 00:36 07:02 Troponin I 0.369 0.636 0.565 NT-Pro-B Natriuret Pep 87617 H 36947 H 08/08/19 12:56 Troponin I 0.445 NT-Pro-B Natriuret Pep Assessment and Plan - Diagnosis (1) Acute respiratory failure with hypoxia and hypercapnia Is this a current diagnosis for this admission?: Yes Plan: Significant improvement since admission. Noncompliant with BiPAP. Still dependent on supplemental oxygen with wheezing on physical examination. SPO2 9092 6 L FiO2 40%. Afebrile. Significant leukocytosis with bandemia. Due to COPD exacerbation. Intubated on 08/07/2019. Extubated 08/11/2019. 08/07/2019. ABG: pH 7.11, PCO2 95.3, PO2 116.2, bicarb 29, FiO2 100%. 08/12/2019. ABG: pH 7.47, PCO2 59.0, PO2 46.9, bicarb 40, FiO2 5 L NC. Received 5 days of IV antibiotics and IV steroids. Continue levalbuterol, Xopenex, budesonide, flutter valve, incentive spirometer, pulmonary toileting. We will start on empiric IV antibiotics. Obtain a sputum and blood culture. (2) Chronic obstructive pulmonary disease (COPD) Qualifiers: COPD type: COPD with acute lower respiratory infection Qualified Code(s): J44.0 - Chronic obstructive pulmonary disease with (acute) lower respiratory infection Is this a current diagnosis for this admission?: Yes Plan: As per #1. (3) Hyperkalemia Is this a current diagnosis for this admission?: Yes Plan: Resolved (4) Hypernatremia Is this a current diagnosis for this admission?: Yes Plan: resolved (5) Wide-complex tachycardia Is this a current diagnosis for this admission?: Yes Plan: Controlled. Has any chest pain, palpitation or lightheadedness. On Cardizem and beta-blockers. Cardiology on board. Pending 2D echo. (6) Tobacco abuse Is this a current diagnosis for this admission?: Yes Plan: Counseled on quitting. NicoDerm patch as needed (7) Elevated troponin level Is this a current diagnosis for this admission?: Yes Plan: Resolved (8) Depression Is this a current diagnosis for this admission?: Yes Plan: Patient appears withdrawn and sad. Patient recently lost his due to lung malignancy. Endorses being depressed but denies any suicidal or homicidal ideation. Patient was offered treatment for depression however stated that he does not want it at this point. He was also offered a consult with a psychiatrist but he declined.
[2019-08-15] MEDS: METOPROLOL TARTRATE 25 MG TABLET PO SCH (13:58)
[2019-08-15] MEDS ORDERED: LEVALBUTEROL HCL NEB 0.63 MG/3 ML AMPUL NEB SCH (14:00)
[2019-08-15] MEDS: LEVALBUTEROL HCL NEB 1.25 MG/3 ML AMPUL NEB SCH ×2 (14:01→20:18)
[2019-08-15] MEDS: METHYLPREDNISOLONE INJ 40 MG/1 ML SDV IV SCH ×2 (14:20→23:27)
[2019-08-15] MEDS: ENOXAPARIN SODIUM INJ 40 MG/0.4 ML DISP.SYRIN SUBCUT SCH (14:21)
[2019-08-15] MEDS ORDERED: METOPROLOL TARTRATE 25 MG TABLET PO PRN (14:28)
[2019-08-15] MEDS: DOCUSATE SODIUM 100 MG/10 ML UDC PO SCH (17:28)
[2019-08-15] MEDS: CEFTRIAXONE 1 GM/D5W RTU 1 GM/50 ML RTUPB IV SCH (17:29)
[2019-08-15] MEDS: ATORVASTATIN CALCIUM 20 MG TABLET PO SCH (23:26)
[2019-08-15] MEDS: GUAIFENESIN 600 MG TABLET.SA PO SCH (23:26)
[2019-08-15] MEDS: FAMOTIDINE 20 MG TABLET PO SCH (23:27)
[2019-08-16] MEDS: METHYLPREDNISOLONE INJ 40 MG/1 ML SDV IV SCH ×2 (05:36→17:43)
[2019-08-16] MEDS: DILTIAZEM HCL 60 MG TABLET PO SCH ×3 (05:36→22:28)
[2019-08-16] MEDS: LEVALBUTEROL HCL NEB 1.25 MG/3 ML AMPUL NEB SCH ×3 (07:47→20:17)
[2019-08-16] MEDS: DOCUSATE SODIUM 100 MG/10 ML UDC PO SCH ×2 (09:21→20:20)
[2019-08-16] MEDS: GUAIFENESIN 600 MG TABLET.SA PO SCH ×2 (09:22→22:27)
[2019-08-16] MEDS: FAMOTIDINE 20 MG TABLET PO SCH ×2 (09:22→22:28)
--- NOTE | 2019-08-16 11:12 | PDOC PROGRESS REPORT ---
Subjective Progress Note for:: 08/16/19 Subjective:: Patient sitting up in bed. No complaints noted. No distress noted. Reason For Visit: COPD EXACERBATION,RESPIRATORY FAILURE Physical Exam Vital Signs: Temp Pulse Resp BP Pulse Ox 97.2 F 90 20 122/71 91 L 08/16/19 06:47 08/16/19 07:47 08/16/19 07:47 08/16/19 06:47 08/16/19 07:47 Intake & Output 08/15/19 08/16/19 08/17/19 06:59 06:59 06:59 Intake Total 100 770 Output Total 575 725 Balance -475 45 Weight 106.9 kg 106.4 kg General appearance: PRESENT: obese Head exam: PRESENT: atraumatic, normocephalic Eye exam: PRESENT: EOMI Respiratory exam: PRESENT: unlabored Cardiovascular exam: PRESENT: RRR, +S1, +S2 Results Laboratory Results: 08/14/19 05:40 08/14/19 05:40 08/14/19 16:40 Clean Catch Midstream Urine Culture - Final NO GROWTH 2 DAYS 08/07/19 08/08/19 08/08/19 18:49 00:36 07:02 Troponin I 0.369 0.636 0.565 NT-Pro-B Natriuret Pep 51393 H 52248 H 08/08/19 12:56 Troponin I 0.445 NT-Pro-B Natriuret Pep Assessment & Plan - Diagnosis (1) Wide-complex tachycardia Is this a current diagnosis for this admission?: Yes Plan: We will continue diltiazem to suppress atrial tachycardia. Low-dose beta- guerrero as well.. Given his compromised respiratory status patient will have multiple triggers for atrial tachycardia especially due to significant lung disease and pulmonary hypertension likely. - Notes Notes: Improving respiratory status. Suppress atrial tachycardia with calcium channel blockers. He is presently on low-dose beta-blockers. If there is any significant bronchospasm this can be stopped and we can increase the dose of calcium guerrero
--- NOTE | 2019-08-16 13:19 | RADIOLOGY REPORT (SQ) ---
EXAM DESCRIPTION: CHEST SINGLE VIEW COMPLETED DATE/TIME: 08/16/2019 1:02 pm REASON FOR STUDY: reassess infiltrates COMPARISON: 08/14/2019 EXAM PARAMETERS: NUMBER OF VIEWS: One view. TECHNIQUE: Single frontal radiographic view of the chest acquired. RADIATION DOSE: NA LIMITATIONS: None. FINDINGS: LUNGS AND PLEURA: Bibasilar airspace disease either atelectasis or pneumonia. Central ronny e remains in place. No pneumothorax. There is blunting of the right costophrenic angle. Small effu leon cannot be excluded. MEDIASTINUM AND HILAR STRUCTURES: No masses. Contour normal. HEART AND VASCULAR STRUCTURES: Heart normal in size. Normal vasculature. BONES: No acute findings. HARDWARE: None in the chest. OTHER: No other significant finding. IMPRESSION: Increasing basilar airspace disease either atelectasis or pneumonia. Possible small rig ht effusion. Central line remains in place. TECHNICAL DOCUMENTATION: JOB ID: [id number] [employer]- All Rights Reserved Reading location - IP/workstation name: [email or web address]
--- NOTE | 2019-08-16 15:54 | RADIOLOGY REPORT (SQ) ---
EXAM DESCRIPTION: NM LUNG VENT/PERF SCAN COMPLETED DATE/TIME: 08/16/2019 3:35 pm REASON FOR STUDY: SOB, hypoxia COMPARISON: Chest x-ray done on the same day. RADIONUCLIDE AND DOSE: 5.4 millicuries TC-99m MAA Intravenous 31.1 millicuries TC-99m DTPA Inhaled aerosol TECHNIQUE: Eight views of the lungs acquired post ventilation of DTPA aerosol. Eight matching views of the lungs acquired following injection of MAA. LIMITATIONS: None. FINDINGS: VENTILATION: There is central clumping of radionuclide. Otherwise ventilation images are unremarkable. PERFUSION: Perfusion images with normal homogenous activity and no wedge-shaped or segmental defects. No ventilation-perfusion mismatches. OTHER: No other significant finding. IMPRESSION: NORMAL VENTILATION-PERFUSION LUNG SCAN. NEGATIVE FOR PULMONARY EMBOLI. TECHNICAL DOCUMENTATION: JOB ID: [id number] [employer]- All Rights Reserved Reading location - IP/workstation name: [email or web address]
[2019-08-16] MEDS: CEFTRIAXONE 1 GM/D5W RTU 1 GM/50 ML RTUPB IV SCH (17:43)
[2019-08-16] MEDS ORDERED: DEXTROSE 40% GEL 15 GM TUBE PO PRN ×2 (18:51)
[2019-08-16] MEDS ORDERED: GLUCAGON,HUMAN RECOMB 1 MG INJ SUBCUT PRN (18:51)
[2019-08-16] MEDS ORDERED: DEXTROSE 50%-WATER 25 GM/50 ML DISP.SYRIN IV PRN ×2 (18:51)
--- NOTE | 2019-08-16 18:53 | XCELERA REPORT ---
[address] [address] Transthoracic Echocardiogram Report Name: LAISHA RODRIGUEZ Age: 59 yrs Gender: Male : 1960 Patient Status: Inpatient Patient Location: ^[facility]^A Study Date: 08/15/2019 08:47 PM History: Wide complex tachycardia Height: 73 in Weight: 231 lb BSA: 2.3 m2 Procedure: A complete two-dimensional transthoracic echocardiogram was performed (2D, M-mode, spectral and color flow Doppler). The study was technically difficult with many images being suboptimal in quality. There was technical limitations during this study due to poor acoustic windows secondary to lung disease. Reason For Study: arrhythmia; recommended by Dr Auguste History: Smoker: current. WCT. Ordering Physician: VIVEK^^^FIELD APPLICATION ENGINEER Performed By: Ashlie Ron Interpretation Summary There was technical limitations during this study due to poor acoustic windows secondary to lung disease. Due to the poor quality of the echocardiogram, an assessment of left ventricular ejection fraction cannot be made. Best estimate is 40-45%. The right ventricular systolic function is normal. There is a mild amount of mitral regurgitation Doppler interrogation especially of aortic valve is inadequate There is a mild amount of tricuspid regurgitation There is no pericardial effusion. MMode/2D Measurements & Calculations RVDd: 2.8 cm LVIDd: 5.1 cm FS: 24.3 % Ao root diam: 2.9 cm IVSd: 1.0 cm LVIDs: 3.9 cm EDV(Teich): 126.4 ml Ao root area: 6.5 cm2 LVPWd: 0.95 cm ESV(Teich): 65.7 ml LA dimension: 3.6 cm EF(Teich): 48.1 % Doppler Measurements & Calculations MV E max stefania: MV P1/2t max stefania: Ao V2 max: LV V1 max P.3 cm/sec 70.6 cm/sec 128.8 cm/sec 3.8 mmHg MV A max stefania: MV P1/2t: 46.4 msec Ao max P.6 mmHg LV V1 max: 73.5 cm/sec MVA(P1/2t): 4.7 cm2 97.7 cm/sec MV E/A: 0.71 MV dec slope: 445.5 cm/sec2 MV dec time: 0.16 sec PA V2 max: TR max stefania: MV P1/2t-pr_phl: 111.3 cm/sec 253.8 cm/sec 46.4 msec PA max P.0 mmHgTR max P.8 mmHg Left Ventricle The left ventricle is mildly dilated. There is mild concentric left ventricular hypertrophy. Due to the poor quality of the echocardiogram, an assessment of left ventricular ejection fraction cannot be made. Best estimate is 40-45%. Doppler measurements suggest impaired left ventricular relaxation, which is associated with grade I/IV or mild diastolic dysfunction. Right Ventricle The right ventricle is mildly dilated. The right ventricular systolic function is normal. Atria The right atrium is mildly dilated. The left atrium is borderline dilated. The interatrial septum is intact with no evidence for an atrial septal defect. Mitral Valve The mitral valve is grossly normal. There is no mitral valve stenosis. There is a mild amount of mitral regurgitation. Aortic Valve The aortic valve is sclerotic, but shows no functional abnormality. The aortic valve is trileaflet. The aortic valve is not well visualized secondary to technical limitations. Doppler interrogation is inadequate. No aortic regurgitation is present. Tricuspid Valve The tricuspid valve is normal in structure and function. There is no tricuspid stenosis. There is a mild amount of tricuspid regurgitation. Great Vessels The aortic root is not well visualized. The inferior vena cava was not well visualized. Effusions There is no pericardial effusion. : VIVEK^^^Shola Ovalle
--- NOTE | 2019-08-16 19:13 | PDOC PROGRESS REPORT ---
Subjective Progress Note for:: 08/16/19 Subjective:: This is a 59 year old male with past medical history of COPD, heavy smoker, presented to ED complaining of shortness of breath, was found to have a pH of 7.11, CO2 95 was subsequently transferred to ICU where he was intubated acute hypercapnic respiratory failure. He was successfully extubated on 08/11/2019. He was subsequently transferred to the floor 08/14/2019. He was also evaluated by cardiology because of atrial tachycardia. Lopressor and Cardizem are optimized. Upon encounter this morning, he appears comfortable. He denies acute complaints. Denies chest pain or shortness of breath. He is not on home O2. He has been requiring 5 to 6 L of nasal cannula of supplemental O2. Appears platelets have been gradually trending down during his hospital course. Discontinue Lovenox. HIT antibodies sent. Plan was to switch to Arixtra. However this afternoon, RN reported the patient passed out on a black tarry stool. He has not received Arixtra yet. Will discontinue Arixtra. Hold off on further anticoagulation for VTE prophylaxis. Will consult surgery for possible need for EGD. Reason For Visit: COPD EXACERBATION,RESPIRATORY FAILURE Physical Exam Vital Signs: Temp Pulse Resp BP Pulse Ox 97.3 F 92 18 104/60 92 08/16/19 11:00 08/16/19 13:43 08/16/19 13:43 08/16/19 11:00 08/16/19 13:43 Intake & Output 08/15/19 08/16/19 08/17/19 06:59 06:59 06:59 Intake Total 100 770 100 Output Total 575 725 325 Balance -475 45 -225 Weight 235 lb 10.786 oz 234 lb 9.149 oz General appearance: PRESENT: no acute distress, well-developed, well-nourished Head exam: PRESENT: atraumatic, normocephalic Eye exam: PRESENT: conjunctiva pink, EOMI, PERRLA. ABSENT: scleral icterus Ear exam: PRESENT: normal external ear exam Mouth exam: PRESENT: moist, tongue midline Neck exam: ABSENT: carotid bruit, JVD, lymphadenopathy, thyromegaly Respiratory exam: PRESENT: clear to auscultation ashleigh. ABSENT: rales, rhonchi, wheezes Cardiovascular exam: PRESENT: tachycardia. ABSENT: diastolic murmur, rubs, systolic murmur Pulses: PRESENT: normal dorsalis pedis pul GI/Abdominal exam: PRESENT: normal bowel sounds, soft. ABSENT: distended, guarding, mass, organolmegaly, rebound, tenderness Rectal exam: PRESENT: deferred Extremities exam: PRESENT: full ROM. ABSENT: calf tenderness, clubbing, pedal edema Neurological exam: PRESENT: alert, awake, oriented to person, oriented to place, oriented to time, oriented to situation, CN II-XII grossly intact. ABSENT: motor sensory deficit Results Laboratory Results: 08/14/19 05:40 08/14/19 05:40 08/16/19 14:40 Stool Occult Blood POSITIVE 08/14/19 16:40 Clean Catch Midstream Urine Culture - Final NO GROWTH 2 DAYS 08/07/19 08/08/19 08/08/19 18:49 00:36 07:02 Troponin I 0.369 0.636 0.565 NT-Pro-B Natriuret Pep 17590 H [id number] H 08/08/19 12:56 Troponin I 0.445 NT-Pro-B Natriuret Pep Impressions: Chest X-Ray 08/16/19 10:51 IMPRESSION: Increasing basilar airspace disease either atelectasis or pneumonia. Possible small right effusion. Central line remains in place. Lung Scan-VQ NM 08/16/19 13:27 IMPRESSION: NORMAL VENTILATION-PERFUSION LUNG SCAN. NEGATIVE FOR PULMONARY EMBOLI. Assessment and Plan - Diagnosis (1) Atrial tachycardia Is this a current diagnosis for this admission?: Yes Plan: Cardiology following. Continue Cardizem and metoprolol. (2) Melena Is this a current diagnosis for this admission?: Yes Plan: Start patient on IV Protonix. Monitor H&H. Consult surgery for possible EGD. (3) Thrombocytopenia Is this a current diagnosis for this admission?: Yes Plan: Appears platelets have been gradually trending down during this hospital course. Concern for possible HIT. Discontinue Lovenox. HIT antibodies sent. Plan was to switch to Arixtra. However this afternoon, RN reported the patient passed out on a black tarry stool. He has not received Arixtra yet. Will discontinue Arixtra. Hold off on further anticoagulation or pharmacologic VTE prophylaxis. Will consult surgery for possible need for EGD. (4) Acute respiratory failure with hypoxia and hypercapnia Is this a current diagnosis for this admission?: Yes Plan: Secondary to COPD exacerbation. Intubated on 08/07/2019. Extubated 08/11/2019. (5) Chronic obstructive pulmonary disease (COPD) Qualifiers: COPD type: COPD with acute lower respiratory infection Qualified Code(s): J44.0 - Chronic obstructive pulmonary disease with (acute) lower respiratory infection Is this a current diagnosis for this admission?: Yes Plan: Resolving. Discontinue Solu-Medrol and switch to prednisone. - Time Time Spent with patient: 25-34 minutes
--- NOTE | 2019-08-16 19:33 | PDOC CONSULTATION ---
Consultation Consult Date: 08/16/19 Provider Consulted: GALI KING Consult reason:: Interval decrease in hemoglobin with dark stools History of Present Illness Admission Date/PCP: 08/07/19 22:09 History of Present Illness: LAISHA RODRIGUEZ is a 59 year old male admitted initially for severe COPD with hypoxemia noted to have large dark stool yesterday positive for Hemoccult blood. Hemoglobin noted to be 11.5 today and about 3 days ago it was 14.9. Patient smokes 2 packs a day for the past 44 years but recently stopped smoking. Denies any lightheadedness nor abdominal pains at this time. Denies any history of GI bleed in the past Past Medical History Cardiac Medical History: Denies: Coronary Artery Disease, Myocardial Infarction, Hypertension Pulmonary Medical History: Denies: Asthma, Bronchitis, Chronic Obstructive Pulmonary Disease (COPD), Pneumonia, Tuberculosis Neurological Medical History: Denies: Seizures Musculoskeltal Medical History: Denies: Arthritis Hematology: Denies: Anemia Past Surgical History Past Surgical History: Reports: Other - I&D of abdominal abscess Social History Lives with: Alone Smoking Status: Current Every Day Smoker Cigarettes Packs Per Day: 1.5 Number of Years Smokin Last Time Smoked: 2 weeks ago Frequency of Alcohol Use: None Hx Recreational Drug Use: No Hx Prescription Drug Abuse: No - Advance Directive Resuscitation Status: Full Code Family History Family History: Reviewed & Not Pertinent Parental Family History Reviewed: Yes Children Family History Reviewed: No Sibling(s) Family History Reviewed.: No Medication/Allergy Home Medications: No Home Medications 08/08/19 Allergies/Adverse Reactions: No Known Allergies Allergy (Verified 12/27/13 15:08) Review of Systems Constitutional: PRESENT: other - Denies any fever no chills Respiratory: PRESENT: other - Short of breath Gastrointestinal: PRESENT: melena, other - No abdominal pains Physical Exam Vital Signs: Temp Pulse Resp BP Pulse Ox 97.3 F 92 18 104/60 92 08/16/19 11:00 08/16/19 13:43 08/16/19 13:43 08/16/19 11:00 08/16/19 13:43 Intake & Output 08/15/19 08/16/19 08/17/19 06:59 06:59 06:59 Intake Total 100 770 250 Output Total 575 725 525 Balance -475 45 -275 Weight 106.9 kg 106.4 kg General appearance: PRESENT: no acute distress Head exam: PRESENT: atraumatic Eye exam: PRESENT: conjunctiva pink Mouth exam: PRESENT: moist Neck exam: PRESENT: full ROM Respiratory exam: PRESENT: decreased breath sounds Cardiovascular exam: PRESENT: RRR Pulses: PRESENT: normal radial pulses Vascular exam: PRESENT: normal capillary refill GI/Abdominal exam: PRESENT: soft Extremities exam: PRESENT: full ROM Neurological exam: PRESENT: alert, oriented to person, oriented to place, oriented to time, oriented to situation Psychiatric exam: PRESENT: appropriate affect Skin exam: PRESENT: normal color, warm Results Laboratory Results: 08/14/19 05:40 08/14/19 05:40 08/16/19 14:40 Stool Occult Blood POSITIVE 08/14/19 16:40 Clean Catch Midstream Urine Culture - Final NO GROWTH 2 DAYS 08/07/19 08/08/19 08/08/19 18:49 00:36 07:02 Troponin I 0.369 0.636 0.565 NT-Pro-B Natriuret Pep 57084 H [id number] H 08/08/19 12:56 Troponin I 0.445 NT-Pro-B Natriuret Pep Impressions: Chest X-Ray 08/16/19 10:51 IMPRESSION: Increasing basilar airspace disease either atelectasis or pneumonia. Possible small right effusion. Central line remains in place. Lung Scan-VQ NM 08/16/19 13:27 IMPRESSION: NORMAL VENTILATION-PERFUSION LUNG SCAN. NEGATIVE FOR PULMONARY EMBOLI. Assessment & Plan - Diagnosis (1) Acute respiratory failure with hypoxia and hypercapnia Is this a current diagnosis for this admission?: Yes (2) Chronic obstructive pulmonary disease (COPD) Qualifiers: COPD type: COPD with acute lower respiratory infection Qualified Code(s): J44.0 - Chronic obstructive pulmonary disease with (acute) lower respiratory infection Is this a current diagnosis for this admission?: Yes (3) Melena Is this a current diagnosis for this admission?: Yes - Time Time Spent: 30 to 50 Minutes - Inpatient Certification Medical Necessity: Need for Surgery - Plan Summary Plan Summary: 59-year-old male with a history of COPD and shortness of breath admitted for primarily for this but noted to have large dark melena yesterday and the hemoglobin noted to be 11.5 this morning from 14.9 about 3 days ago. Denies any abdominal pains and not on any blood thinner. Plans: We will schedule EGD tomorrow care of Dr. Fawad Merrill from midnight
[2019-08-16] MEDS: ATORVASTATIN CALCIUM 20 MG TABLET PO SCH (22:27)
[2019-08-16] MEDS: PANTOPRAZOLE SODIUM 40 MG VIAL IV SCH (22:28)
[2019-08-16] MEDS: METOPROLOL TARTRATE 25 MG TABLET PO SCH (22:28)
[2019-08-17 05:35] LABS: HEMATOCRIT 25.8 % (37.9-51.0); MEAN CORPUSCULAR HEMOGLOBIN 30.6 pg (27.0-33.4); MEAN CORPUSCULAR HGB CONC 33.7 g/dL (32.0-36.0); MEAN CORPUSCULAR VOLUME 91 fl (80-97); PLATELET COUNT 255 10^3/uL (150-450); RED BLOOD COUNT 2.83 10^6/uL (4.35-5.55); RED CELL DISTRIBUTION WIDTH 13.4 % (11.5-14.0)
[2019-08-17 05:45] LABS: HEMOGLOBIN 8.7 g/dL (13.5-17.0)
[2019-08-17 05:46] LABS: WHITE BLOOD COUNT 32.8 10^3/uL (4.0-10.5)
[2019-08-17] MEDS: DILTIAZEM HCL 60 MG TABLET PO SCH ×3 (05:53→22:39)
[2019-08-17 06:02] LABS: ABSOLUTE MONOCYTES # (MANUAL) 2.3 10^3/uL (0.1-1.4); BASOPHILS % (MANUAL) 0 % (0-2); EOSINOPHILS % (MANUAL) 0 % (0-6); LYMPHOCYTES % (MANUAL) 0 % (13-45); MONOCYTES % (MANUAL) 7 % (3-13); SEGMENTED NEUTROPHILS % (MAN) 93 % (42-78); TOTAL CELLS COUNTED 100
[2019-08-17 06:03] LABS: ANISOCYTOSIS 1+; HYPERSEGMENTED NEUTROPHILS PRESENT; PLATELET COMMENT ADEQUATE; POLYCHROMASIA SLIGHT
[2019-08-17] MEDS ORDERED: NORMAL SALINE 250 ML IV PRN ×2 (07:57)
[2019-08-17] MEDS: LEVALBUTEROL HCL NEB 1.25 MG/3 ML AMPUL NEB SCH ×3 (08:59→20:20)
[2019-08-17] MEDS: PANTOPRAZOLE SODIUM 40 MG VIAL IV SCH ×2 (09:16→22:40)
[2019-08-17] MEDS: GUAIFENESIN 600 MG TABLET.SA PO SCH ×2 (09:17→22:39)
[2019-08-17] MEDS: PREDNISONE 20 MG TABLET PO SCH ×2 (09:17→17:58)
[2019-08-17] MEDS: FAMOTIDINE 20 MG TABLET PO SCH ×2 (09:17→22:39)
[2019-08-17] MEDS: DOCUSATE SODIUM 100 MG/10 ML UDC PO SCH ×2 (09:17→17:58)
[2019-08-17] MEDS: METOPROLOL TARTRATE 25 MG TABLET PO SCH ×2 (09:17→22:31)
[2019-08-17] MEDS ORDERED: FONDAPARINUX SODIUM INJ 2.5 MG/0.5 ML DISP.SYRIN SUBCUT SCH (10:00)
[2019-08-17 10:14] LABS: PATH REVIEW PATHOLOGIST REVIEWED
[2019-08-17] MEDS: ENOXAPARIN SODIUM INJ 40 MG/0.4 ML DISP.SYRIN SUBCUT SCH (10:57)
[2019-08-17] MEDS ORDERED: POLYETHYLENE GLYCOL 3350 POWDER 17 GM/1 PACKET PO ONE ×2 (13:22→15:45)
[2019-08-17] MEDS ORDERED: BISACODYL 5 MG TABEC PO ONE ×2 (13:22→19:00)
--- NOTE | 2019-08-17 15:11 | PDOC PROGRESS REPORT ---
Subjective Progress Note for:: 08/17/19 Subjective:: This is a 59 year old male with past medical history of COPD, heavy smoker, presented to ED complaining of shortness of breath, was found to have a pH of 7.11, CO2 95 was subsequently transferred to ICU where he was intubated acute hypercapnic respiratory failure. He was successfully extubated on 08/11/2019. He was subsequently transferred to the floor 08/14/2019. He was also evaluated by cardiology because of atrial tachycardia. Lopressor and Cardizem are optimized. 08/16: Upon encounter this morning, he appears comfortable. He denies acute complaints. Denies chest pain or shortness of breath. He is not on home O2. He has been requiring 5 to 6 L of nasal cannula of supplemental O2. Appears platelets have been gradually trending down during his hospital course. Discontinue Lovenox. HIT antibodies sent. Plan was to switch to Arixtra. However this afternoon, RN reported the patient passed out on a black tarry stool. He has not received Arixtra yet. Will discontinue Arixtra. Hold off on further anticoagulation for VTE prophylaxis. Will consult surgery for possible need for EGD. 08/17: Hemoglobin trended down to 8.7 from 11.5 yesterday. Denies chest pain or shortness of breath. Patient initially refused having the EGD and colonoscopy done here as he initially told the surgicalist that he prefers to undergo both procedures and different hospital. Called [facility] and [facility] for possible transfer. Both Medical Centers don't have any available bed. Discussed with patient and he is agreeable to getting the EGD and colonoscopy done here. Surgicalist updated. Reason For Visit: COPD EXACERBATION,RESPIRATORY FAILURE Physical Exam Vital Signs: Temp Pulse Resp BP Pulse Ox 97.5 F 82 16 117/61 94 08/17/19 08:11 08/17/19 09:00 08/17/19 09:00 08/17/19 08:11 08/17/19 09:00 Intake & Output 08/16/19 08/17/19 08/18/19 06:59 06:59 06:59 Intake Total 770 300 Output Total 725 1125 Balance 45 -825 Weight 234 lb 9.149 oz 234 lb 2.095 oz General appearance: PRESENT: no acute distress, well-developed, well-nourished Head exam: PRESENT: atraumatic, normocephalic Eye exam: PRESENT: conjunctiva pink, EOMI, PERRLA. ABSENT: scleral icterus Ear exam: PRESENT: normal external ear exam Mouth exam: PRESENT: moist, tongue midline Neck exam: ABSENT: carotid bruit, JVD, lymphadenopathy, thyromegaly Respiratory exam: PRESENT: clear to auscultation ashleigh. ABSENT: rales, rhonchi, wheezes Cardiovascular exam: PRESENT: RRR. ABSENT: diastolic murmur, rubs, systolic murmur Pulses: PRESENT: normal dorsalis pedis pul GI/Abdominal exam: PRESENT: normal bowel sounds, soft. ABSENT: distended, guarding, mass, organolmegaly, rebound, tenderness Rectal exam: PRESENT: deferred Extremities exam: PRESENT: full ROM. ABSENT: calf tenderness, clubbing, pedal edema Neurological exam: PRESENT: alert, awake, oriented to person, oriented to place, oriented to time, oriented to situation, CN II-XII grossly intact. ABSENT: motor sensory deficit Results Laboratory Results: 08/17/19 04:47 08/14/19 05:40 08/16/19 08/17/19 08/17/19 14:40 04:47 09:05 WBC 32.8 H* RBC 2.83 L Hgb 8.7 L D Hct 25.8 L MCV 91 MCH 30.6 MCHC 33.7 RDW 13.4 Plt Count 255 Seg Neutrophils % Not Reportable Stool Occult Blood POSITIVE Blood Type O POSITIVE Antibody Screen NEGATIVE 08/14/19 16:40 Clean Catch Midstream Urine Culture - Final NO GROWTH 2 DAYS 08/07/19 08/08/19 08/08/19 18:49 00:36 07:02 Troponin I 0.369 0.636 0.565 NT-Pro-B Natriuret Pep 61667 H 33914 H 08/08/19 12:56 Troponin I 0.445 NT-Pro-B Natriuret Pep Impressions: Chest X-Ray 08/16/19 10:51 IMPRESSION: Increasing basilar airspace disease either atelectasis or pneumonia. Possible small right effusion. Central line remains in place. Lung Scan-VQ NM 08/16/19 13:27 IMPRESSION: NORMAL VENTILATION-PERFUSION LUNG SCAN. NEGATIVE FOR PULMONARY EMBOLI. Assessment and Plan - Diagnosis (1) Melena Is this a current diagnosis for this admission?: Yes Plan: Continue IV Protonix. For EGD and colonoscopy. 2 units of packed RBC ordered. Will continue cycle H&H. (2) GI bleed Is this a current diagnosis for this admission?: Yes Plan: As per number 1. (3) Atrial tachycardia Is this a current diagnosis for this admission?: Yes Plan: Currently in sinus rhythm. Cardiology following. Continue Cardizem and metoprolol. (4) Thrombocytopenia Is this a current diagnosis for this admission?: Yes Plan: 08/16: Appears platelets have been gradually trending down during this hospital course. Concern for possible HIT. Discontinue Lovenox. HIT antibodies sent. Plan was to switch to Arixtra. However this afternoon, RN reported the patient passed out on a black tarry stool. He has not received Arixtra yet. Will discontinue Arixtra. Hold off on further anticoagulation or pharmacologic VTE prophylaxis. Will consult surgery for possible need for EGD. 08/17: Platleets have improved on repeat CBC today. (5) Acute respiratory failure with hypoxia and hypercapnia Is this a current diagnosis for this admission?: Yes Plan: Secondary to COPD exacerbation. Intubated on 08/07/2019. Extubated 08/11/2019. (6) Chronic obstructive pulmonary disease (COPD) Qualifiers: COPD type: COPD with acute lower respiratory infection Qualified Code(s): J44.0 - Chronic obstructive pulmonary disease with (acute) lower respiratory infection Is this a current diagnosis for this admission?: Yes Plan: 08/16: Resolving. Discontinue Solu-Medrol and switch to prednisone. - Time Time Spent with patient: 25-34 minutes
[2019-08-17] MEDS: CEFTRIAXONE 1 GM/D5W RTU 1 GM/50 ML RTUPB IV SCH (17:58)
--- NOTE | 2019-08-17 22:30 | PDOC PROGRESS REPORT ---
Subjective Progress Note for:: 08/17/19 Subjective:: This is a 59-year-old male with bloody stool, several times over the last few days. The patient reports that he has never had this before. The patient reports that he has never had a colonoscopy. He denies hematemesis, abdominal pain, nausea, vomiting, fatigue, fevers, chills, chest pain, shortness of breath. Reason For Visit: COPD EXACERBATION,RESPIRATORY FAILURE Physical Exam Vital Signs: Temp Pulse Resp BP Pulse Ox 98.4 F 79 16 109/57 L 99 08/17/19 21:30 08/17/19 21:30 08/17/19 21:30 08/17/19 21:30 08/17/19 21:30 Intake & Output 08/16/19 08/17/19 08/18/19 06:59 06:59 06:59 Intake Total 770 300 810 Output Total 725 1125 0 Balance 45 -825 810 Weight 106.4 kg 106.2 kg General appearance: PRESENT: no acute distress, cooperative Head exam: PRESENT: atraumatic, normocephalic Eye exam: PRESENT: EOMI, PERRLA. ABSENT: scleral icterus Mouth exam: PRESENT: moist, neck supple Neck exam: ABSENT: meningismus, tenderness, thyromegaly, tracheal deviation, tracheostomy Respiratory exam: PRESENT: unlabored. ABSENT: chest wall tenderness, tachypnea Cardiovascular exam: PRESENT: RRR Pulses: PRESENT: normal radial pulses GI/Abdominal exam: PRESENT: soft. ABSENT: tenderness Rectal exam: PRESENT: deferred Extremities exam: ABSENT: clubbing Musculoskeletal exam: ABSENT: deformity Neurological exam: PRESENT: alert, awake, oriented to person, oriented to place, oriented to time, oriented to situation, CN II-XII grossly intact. ABSENT: motor sensory deficit Psychiatric exam: PRESENT: agitated - Mildly. ABSENT: anxious, depressed Focused psych exam: ABSENT: delusional Skin exam: ABSENT: cyanosis, erythema, jaundice Results Laboratory Results: 08/17/19 04:47 08/14/19 05:40 08/17/19 08/17/19 04:47 09:05 WBC 32.8 H* RBC 2.83 L Hgb 8.7 L D Hct 25.8 L MCV 91 MCH 30.6 MCHC 33.7 RDW 13.4 Plt Count 255 Seg Neutrophils % Not Reportable Blood Type O POSITIVE Antibody Screen NEGATIVE 08/16/19 09:25 Sputum Gram Stain - Final 08/16/19 09:25 Sputum Sputum Culture - Final Yeast, Not Izabel Albicans Greatly Reduced Normal Ciara 08/07/19 08/08/19 08/08/19 18:49 00:36 07:02 Troponin I 0.369 0.636 0.565 NT-Pro-B Natriuret Pep 44163 H 04939 H 08/08/19 12:56 Troponin I 0.445 NT-Pro-B Natriuret Pep Impressions: Chest X-Ray 08/16/19 10:51 IMPRESSION: Increasing basilar airspace disease either atelectasis or pneumonia. Possible small right effusion. Central line remains in place. Lung Scan-VQ NM 08/16/19 13:27 IMPRESSION: NORMAL VENTILATION-PERFUSION LUNG SCAN. NEGATIVE FOR PULMONARY EMBOLI. Assessment & Plan - Diagnosis (1) Melena Is this a current diagnosis for this admission?: Yes - Time Time Spent with patient: Less than 15 minutes - Plan Summary Plan Summary: This is a 59-year-old male admitted with GI bleeding. The patient reports melena, and an episode of hematochezia. He has never had a colonoscopy. He is a smoker. He denies any abdominal pain or hematemesis. I have recommended an EGD and colonoscopy for the patient. Initially, the patient was reluctant to undergo procedures at this hospital, however when faced with the possibility of transfer to another facility, he has had a change of heart. I have discussed the procedure with him at length. The patient has consented to EGD and colonoscopy. Prep today, with procedures likely tomorrow. Risks/benefits discussed, informed consent obtained, and all questions answered.
[2019-08-17] MEDS: ATORVASTATIN CALCIUM 20 MG TABLET PO SCH (22:39)
[2019-08-18] MEDS: DILTIAZEM HCL 60 MG TABLET PO SCH ×3 (06:06→22:43)
[2019-08-18 07:29] LABS: HEMATOCRIT 27.3 % (37.9-51.0); HEMOGLOBIN 9.2 g/dL (13.5-17.0); MEAN CORPUSCULAR HEMOGLOBIN 30.7 pg (27.0-33.4); MEAN CORPUSCULAR HGB CONC 33.7 g/dL (32.0-36.0); MEAN CORPUSCULAR VOLUME 91 fl (80-97); PLATELET COUNT 224 10^3/uL (150-450); RED CELL DISTRIBUTION WIDTH 13.7 % (11.5-14.0); WHITE BLOOD COUNT 21.4 10^3/uL (4.0-10.5)
[2019-08-18 07:49] LABS: ABSOLUTE LYMPHOCYTES# (MANUAL) 2.4 10^3/uL (0.5-4.7); ABSOLUTE MONOCYTES # (MANUAL) 1.3 10^3/uL (0.1-1.4); BASOPHILS % (MANUAL) 0 % (0-2); EOSINOPHILS % (MANUAL) 0 % (0-6); LYMPHOCYTES % (MANUAL) 8 % (13-45); MONOCYTES % (MANUAL) 6 % (3-13); RBC MORPHOLOGY COMMENT NORMO-CYTIC/CHROMIC; SEGMENTED NEUTROPHILS % (MAN) 83 % (42-78); TOTAL CELLS COUNTED 100
[2019-08-18 07:50] LABS: PLATELET COMMENT ADEQUATE
[2019-08-18] MEDS ORDERED: PROPOFOL INJ 200 MG/20 ML VIAL IV ONE ×2 (07:52→18:22)
[2019-08-18] MEDS: LEVALBUTEROL HCL NEB 1.25 MG/3 ML AMPUL NEB SCH ×3 (08:15→20:00)
[2019-08-18] MEDS: METOPROLOL TARTRATE 25 MG TABLET PO SCH ×2 (11:47→22:29)
[2019-08-18] MEDS: PREDNISONE 20 MG TABLET PO SCH ×2 (11:47→17:48)
[2019-08-18] MEDS: DOCUSATE SODIUM 100 MG/10 ML UDC PO SCH ×2 (11:47→17:48)
[2019-08-18] MEDS: FAMOTIDINE 20 MG TABLET PO SCH ×2 (11:48→22:43)
[2019-08-18] MEDS: GUAIFENESIN 600 MG TABLET.SA PO SCH ×2 (11:48→22:42)
[2019-08-18] MEDS ORDERED: KETOROLAC TROMETHAMINE INJ/PF 30 MG/1 ML SDV IV PRN (11:52)
[2019-08-18] MEDS: PANTOPRAZOLE SODIUM 40 MG VIAL IV SCH ×2 (12:28→22:43)
--- NOTE | 2019-08-18 15:55 | RADIOLOGY REPORT (SQ) ---
EXAM DESCRIPTION: SHOULDER RIGHT 2 OR MORE VIEWS COMPLETED DATE/TIME: 08/18/2019 3:35 pm REASON FOR STUDY: fall on floor COMPARISON: None. NUMBER OF VIEWS: Three views. TECHNIQUE: Internal rotation, external rotation, and Y view images acquired of the right shoulder. LIMITATIONS: None. FINDINGS: MINERALIZATION: Normal. BONES: No acute fracture. No worrisome bone lesions. JOINTS: No dislocation. VISUALIZED LUNGS AND RIBS: No pneumothorax. No rib fracture. SOFT TISSUES: No radiopaque foreign body. OTHER: No other significant finding. IMPRESSION: NEGATIVE STUDY OF THE RIGHT SHOULDER. NO RADIOGRAPHIC EVIDENCE OF ACUTE INJURY. TECHNICAL DOCUMENTATION: JOB ID: [id number] [employer]- All Rights Reserved Reading location - IP/workstation name: [email or web address]
--- NOTE | 2019-08-18 15:57 | RADIOLOGY REPORT (SQ) ---
EXAM DESCRIPTION: HIP RIGHT AP/LATERAL COMPLETED DATE/TIME: 08/18/2019 3:35 pm REASON FOR STUDY: fall on floor COMPARISON: None. NUMBER OF VIEWS: Two views. TECHNIQUE: AP pelvis and additional frog-leg view of the right hip. LIMITATIONS: None. FINDINGS: MINERALIZATION: Normal. RIGHT HIP: No fracture or dislocation. No worrisome bone lesions. LEFT HIP: No fracture or dislocation. No worrisome bone lesions. PUBIS AND ISCHIUM: No fracture. PELVIS: No fracture. SACRUM: No fracture or dislocation. No worrisome bone lesions. LOWER LUMBAR SPINE: No fracture or dislocation. No worrisome bone lesions. No significant disc disea se. SOFT TISSUES: No findings. OTHER: No other significant finding. IMPRESSION: NEGATIVE STUDY OF THE RIGHT HIP. NO RADIOGRAPHIC EVIDENCE OF ACUTE INJURY. TECHNICAL DOCUMENTATION: JOB ID: [id number] [employer]- All Rights Reserved Reading location - IP/workstation name: [email or web address]
--- NOTE | 2019-08-18 15:59 | RADIOLOGY REPORT (SQ) ---
EXAM DESCRIPTION: CHEST SINGLE VIEW COMPLETED DATE/TIME: 08/18/2019 3:35 pm REASON FOR STUDY: FALL ON FLOOR COMPARISON: 08/16/2019 NUMBER OF VIEWS: One view. TECHNIQUE: Single frontal radiographic image of the chest acquired. LIMITATIONS: None. FINDINGS: LUNGS AND PLEURA: Subsegmental airspace disease in the lung bases. Improved aeration in t he right lower lobe. MEDIASTINUM AND HEART: Stable heart size and mediastinal structures. SUPPORT DEVICES: Appropriate location without change. BONY STRUCTURES: No acute findings. HARDWARE: None. OTHER: No other significant finding. IMPRESSION: Slight improvement. No acute posttraumatic findings. Reading location - IP/workstation name: [email or web address]
--- NOTE | 2019-08-18 16:33 | PDOC PROGRESS REPORT ---
Subjective Progress Note for:: 08/18/19 Subjective:: This is a 59 year old male with past medical history of COPD, heavy smoker, presented to ED complaining of shortness of breath, was found to have a pH of 7.11, CO2 95 was subsequently transferred to ICU where he was intubated acute hypercapnic respiratory failure. He was successfully extubated on 08/11/2019. He was subsequently transferred to the floor 08/14/2019. He was also evaluated by cardiology because of atrial tachycardia. Lopressor and Cardizem are optimized. 08/16: Upon encounter this morning, he appears comfortable. He denies acute complaints. Denies chest pain or shortness of breath. He is not on home O2. He has been requiring 5 to 6 L of nasal cannula of supplemental O2. Appears platelets have been gradually trending down during his hospital course. Discontinue Lovenox. HIT antibodies sent. Plan was to switch to Arixtra. However this afternoon, RN reported the patient passed out on a black tarry stool. He has not received Arixtra yet. Will discontinue Arixtra. Hold off on further anticoagulation for VTE prophylaxis. Will consult surgery for possible need for EGD. 08/17: Hemoglobin trended down to 8.7 from 11.5 yesterday. Denies chest pain or shortness of breath. Patient initially refused having the EGD and colonoscopy done here as he initially told the surgicalist that he prefers to undergo both procedures and different hospital. Called [facility] and [facility] for possible transfer. Both Medical Centers don't have any available bed. Discussed with patient and he is agreeable to getting the EGD and colonoscopy done here. Surgicalist updated. 08/18: RN reports that patient had a bowel prep and had a few episodes of melanotic stools overnight. Otherwise, patient denies abdominal pain, nausea vomiting. He is scheduled for an EGD and colonoscopy later today. Reason For Visit: COPD EXACERBATION,RESPIRATORY FAILURE Physical Exam Vital Signs: Temp Pulse Resp BP Pulse Ox 98.3 F 83 18 129/70 H 99 08/18/19 11:40 08/18/19 11:40 08/18/19 11:40 08/18/19 11:40 08/18/19 11:40 Intake & Output 08/17/19 08/18/19 08/19/19 06:59 06:59 06:59 Intake Total 300 2610 Output Total 1125 0 Balance -825 2610 Weight 234 lb 2.095 oz 235 lb 3.732 oz General appearance: PRESENT: no acute distress, well-developed, well-nourished Head exam: PRESENT: atraumatic, normocephalic Eye exam: PRESENT: conjunctiva pink, EOMI, PERRLA. ABSENT: scleral icterus Ear exam: PRESENT: normal external ear exam Mouth exam: PRESENT: moist, tongue midline Neck exam: ABSENT: carotid bruit, JVD, lymphadenopathy, thyromegaly Respiratory exam: PRESENT: clear to auscultation ashleigh. ABSENT: rales, rhonchi, wheezes Cardiovascular exam: PRESENT: RRR. ABSENT: diastolic murmur, rubs, systolic murmur Pulses: PRESENT: normal dorsalis pedis pul GI/Abdominal exam: PRESENT: normal bowel sounds, soft. ABSENT: distended, guarding, mass, organolmegaly, rebound, tenderness Rectal exam: PRESENT: deferred Extremities exam: PRESENT: full ROM. ABSENT: calf tenderness, clubbing, pedal edema Neurological exam: PRESENT: alert, awake, oriented to person, oriented to place, oriented to time, oriented to situation, CN II-XII grossly intact. ABSENT: motor sensory deficit Results Laboratory Results: 08/18/19 06:30 08/14/19 05:40 08/17/19 08/18/19 09:05 06:30 WBC 21.4 H RBC 3.00 L Hgb 9.2 L Hct 27.3 L MCV 91 MCH 30.7 MCHC 33.7 RDW 13.7 Plt Count 224 Seg Neutrophils % Not Reportable Blood Type O POSITIVE Antibody Screen NEGATIVE 08/16/19 09:25 Sputum Gram Stain - Final 08/16/19 09:25 Sputum Sputum Culture - Final Yeast, Not Izabel Albicans Greatly Reduced Normal Ciara 08/07/19 08/08/19 08/08/19 18:49 00:36 07:02 Troponin I 0.369 0.636 0.565 NT-Pro-B Natriuret Pep 72580 H 36547 H 08/08/19 12:56 Troponin I 0.445 NT-Pro-B Natriuret Pep Impressions: Chest X-Ray 08/16/19 10:51 IMPRESSION: Increasing basilar airspace disease either atelectasis or pneumonia. Possible small right effusion. Central line remains in place. Lung Scan-VQ NV 08/16/19 13:27 IMPRESSION: NORMAL VENTILATION-PERFUSION LUNG SCAN. NEGATIVE FOR PULMONARY EMBOLI. Assessment and Plan - Diagnosis (1) Melena Is this a current diagnosis for this admission?: Yes Plan: Continue IV Protonix. For EGD and colonoscopy. S/P 2 units of packed RBC transfused. Will continue cycle H&H. (2) GI bleed Is this a current diagnosis for this admission?: Yes Plan: As per number 1. (3) Atrial tachycardia Is this a current diagnosis for this admission?: Yes Plan: Currently in sinus rhythm. Cardiology following. Continue Cardizem and metoprolol. (4) Thrombocytopenia Is this a current diagnosis for this admission?: Yes Plan: 08/16: Appears platelets have been gradually trending down during this hospital course. Concern for possible HIT. Discontinue Lovenox. HIT antibodies sent. Plan was to switch to Arixtra. However this afternoon, RN reported the patient passed out on a black tarry stool. He has not received Arixtra yet. Will discontinue Arixtra. Hold off on further anticoagulation or pharmacologic VTE prophylaxis. Will consult surgery for possible need for EGD. 08/17: Platelets have improved on repeat CBC today. 08/18: Platelets have recovered. HIT antibody negative. (5) Acute respiratory failure with hypoxia and hypercapnia Is this a current diagnosis for this admission?: Yes Plan: Secondary to COPD exacerbation. Intubated on 08/07/2019. Extubated 08/11/2019. (6) Chronic obstructive pulmonary disease (COPD) Qualifiers: COPD type: COPD with acute lower respiratory infection Qualified Code(s): J44.0 - Chronic obstructive pulmonary disease with (acute) lower respiratory infection Is this a current diagnosis for this admission?: Yes Plan: 08/16: Resolving. Discontinue Solu-Medrol and switch to prednisone. - Time Time Spent with patient: 25-34 minutes
[2019-08-18] MEDS: CEFTRIAXONE 1 GM/D5W RTU 1 GM/50 ML RTUPB IV SCH (17:47)
--- NOTE | 2019-08-18 18:47 | PDOC PROGRESS REPORT ---
Subjective Subjective:: This is a 59-year-old male with bloody stool, several times over the last few days. The patient reports that he has never had this before. The patient reports that he has never had a colonoscopy. He denies hematemesis, abdominal pain, nausea, vomiting, fatigue, fevers, chills, chest pain, shortness of breath. Reason For Visit: COPD EXACERBATION,RESPIRATORY FAILURE Physical Exam Vital Signs: Temp Pulse Resp BP Pulse Ox 97.8 F 89 18 111/55 L 98 08/18/19 14:47 08/18/19 14:47 08/18/19 14:47 08/18/19 14:47 08/18/19 14:47 Intake & Output 08/17/19 08/18/19 08/19/19 06:59 06:59 06:59 Intake Total 300 2610 13 Output Total 1125 0 700 Balance -825 2610 -687 Weight 106.2 kg 106.7 kg Exam: General appearance: PRESENT: no acute distress, cooperative Head exam: PRESENT: atraumatic, normocephalic Eye exam: PRESENT: EOMI, PERRLA. ABSENT: scleral icterus Mouth exam: PRESENT: moist, neck supple Neck exam: ABSENT: meningismus, tenderness, thyromegaly, tracheal deviation, tracheostomy Respiratory exam: PRESENT: unlabored. ABSENT: chest wall tenderness, tachypnea Cardiovascular exam: PRESENT: RRR Pulses: PRESENT: normal radial pulses GI/Abdominal exam: PRESENT: soft. ABSENT: tenderness Rectal exam: PRESENT: deferred Extremities exam: ABSENT: clubbing Musculoskeletal exam: ABSENT: deformity Neurological exam: PRESENT: alert, awake, oriented to person, oriented to place, oriented to time, oriented to situation, CN II-XII grossly intact. ABSENT: motor sensory deficit Psychiatric exam: PRESENT: agitated - Mildly. ABSENT: anxious, depressed Focused psych exam: ABSENT: delusional Skin exam: ABSENT: cyanosis, erythema, jaundice Results Laboratory Results: 08/18/19 06:30 08/14/19 05:40 08/17/19 08/18/19 09:05 06:30 WBC 21.4 H RBC 3.00 L Hgb 9.2 L Hct 27.3 L MCV 91 MCH 30.7 MCHC 33.7 RDW 13.7 Plt Count 224 Seg Neutrophils % Not Reportable Blood Type O POSITIVE Antibody Screen NEGATIVE 08/07/19 08/08/19 08/08/19 18:49 00:36 07:02 Troponin I 0.369 0.636 0.565 NT-Pro-B Natriuret Pep 57065 H [id number] H 08/08/19 12:56 Troponin I 0.445 NT-Pro-B Natriuret Pep Impressions: Lung Scan-VQ NM 08/16/19 13:27 IMPRESSION: NORMAL VENTILATION-PERFUSION LUNG SCAN. NEGATIVE FOR PULMONARY EMBOLI. Chest X-Ray 08/18/19 00:00 IMPRESSION: Slight improvement. No acute posttraumatic findings. Shoulder X-Ray 08/18/19 00:00 IMPRESSION: NEGATIVE STUDY OF THE RIGHT SHOULDER. NO RADIOGRAPHIC EVIDENCE OF ACUTE INJURY. Hip/Pelvis X-Ray 08/18/19 11:53 IMPRESSION: NEGATIVE STUDY OF THE RIGHT HIP. NO RADIOGRAPHIC EVIDENCE OF ACUTE INJURY. Assessment & Plan - Diagnosis (1) Melena Is this a current diagnosis for this admission?: Yes - Time Time Spent with patient: Less than 15 minutes - Plan Summary Plan Summary: This is a 59-year-old male admitted with GI bleeding. The patient reports melena, and an episode of hematochezia. He has never had a colonoscopy. He is a smoker. He denies any abdominal pain or hematemesis. The patient has agreed to EGD and colonoscopy. Risks/benefits discussed, informed consent obtained, and all questions answered.
--- NOTE | 2019-08-18 20:04 | Operative Report ---
Nonrecallable Operative Report DATE OF SURGERY: 08/18/19 PREOPERATIVE DIAGNOSIS: GI bleeding POSTOPERATIVE DIAGNOSIS: 1. Bleeding duodenal ulcer. 2. Large amount of old blood in the colon, without signs of active bleeding from a colonic source. OPERATION: 1. EGD. 2. Submucosal injection of epinephrine as a hemostatic agent, circumferentially around the bleeding duodenal ulcer. 3. Ligation of active bleeding in the duodenum via resolution clip placement x2. 4. Colonoscopy to the cecum. SURGEON: TICO BAKER ANESTHESIA: LMAC TISSUE REMOVED OR ALTERED: None COMPLICATIONS: Inadequate visualization on colonoscopy due to large amount of retained old blood. ESTIMATED BLOOD LOSS: Large amount of old blood in the colon. Active bleeding in the stomach. PROCEDURE: Drains/implants: Resolution clip placement x2 on bleeding duodenal ulcer. Procedure in detail: After informed consent was obtained, the patient was brought to the operating room and laid in the left lateral decubitus position. The endoscope was passed down the oropharynx and into the stomach. There is a large amount of old blood in the stomach this was irrigated and suctioned. The mucosa of the stomach appeared without obvious defect. There was no active ulceration or active bleeding within the cardia, fundus, body, or antrum of the stomach. The scope was pushed into the duodenum. The duodenum was acutely inflamed. There was an area of active bleeding in the duodenum. There was a large clot that was present. This was irrigated and suctioned. The clot was removed. There was slow ooze coming from the duodenal ulcerated area. Epinephrine was then injected circumferentially in a submucosal pattern, to assist with hemostasis. Next 2 resolution clips were placed over the area of ulceration. All bleeding stopped after these maneuvers were completed. The area was irrigated and suctioned. Hemostasis was ensured. The scope was then removed from the patient, and this portion of the procedure was concluded. The colonoscope was inserted into the rectum. Inside the rectum there is a large amount of old blood present. The scope was pushed up the rectum, sigmoid colon, descending colon, across the transverse colon, down the ascending colon, and into the cecum. The prep was very poor, due to large amounts of old blood. There was dark blood throughout the colon, and was seen to be coming from the ileocecal valve. The scope was then withdrawn, circumferentially noting the mucosa of the colon. No areas of stricture, masses, or cancerous lesions of the colon could be identified. Due to the poor nature of the prep, the patient will require a screening colonoscopy at a later time. This examination was to ensure that there was no active bleeding coming from the colon, which there was not. The scope was withdrawn past the ascending colon, transverse colon, down the descending colon, sigmoid colon, and into the rectum. The scope was then removed from the patient, and the procedure was concluded. All sponge, instrument, and needle counts were correct x2. Condition: Stable.
[2019-08-18 22:09] LABS: CREATINE KINASE MB 5.19 ng/mL (<4.55)
[2019-08-18 22:23] LABS: TROPONIN I 0.129 ng/mL
[2019-08-18] MEDS: SUCRALFATE 1 GM TABLET PO SCH (22:43)
[2019-08-18] MEDS: ATORVASTATIN CALCIUM 20 MG TABLET PO SCH (22:43)
[2019-08-18] MEDS: CALCIUM CARBONATE 500 MG TAB.CHEW PO SCH (22:43)
[2019-08-19 03:57] LABS: CREATINE KINASE MB 14.4 ng/mL (<4.55)
[2019-08-19 04:05] LABS: TROPONIN I 1.43 ng/mL
[2019-08-19] MEDS: DILTIAZEM HCL 60 MG TABLET PO SCH ×3 (05:42→22:47)
[2019-08-19 05:49] LABS: ABSOLUTE EOSINOPHILS # (AUTO) 0.1 10^3/uL (0.0-0.6); ABSOLUTE LYMPHOCYTES (AUTO) 1.3 10^3/uL (0.5-4.7); ABSOLUTE MONOCYTES (AUTO) 1.4 10^3/uL (0.1-1.4); ABSOLUTE NEUT (AUTO) 15.5 10^3/uL (1.7-8.2); BASOPHILS % (AUTO) 0.2 % (0-2); EOSINOPHILS % (AUTO) 0.3 % (0-6); HEMATOCRIT 19.6 % (37.9-51.0); LYMPHOCYTES % (AUTO) 7.1 % (13-45); MEAN CORPUSCULAR HEMOGLOBIN 30.3 pg (27.0-33.4); MEAN CORPUSCULAR HGB CONC 33.3 g/dL (32.0-36.0); MEAN CORPUSCULAR VOLUME 91 fl (80-97); MONOCYTES % (AUTO) 7.5 % (3-13); PLATELET COUNT 196 10^3/uL (150-450); RED BLOOD COUNT 2.16 10^6/uL (4.35-5.55); RED CELL DISTRIBUTION WIDTH 13.7 % (11.5-14.0); SEGMENTED NEUTROPHILS % (AUTO) 84.9 % (42-78); TOTAL CELLS COUNTED % (AUTO) 100 %; WHITE BLOOD COUNT 18.3 10^3/uL (4.0-10.5)
[2019-08-19 05:50] LABS: ALBUMIN 1.9 g/dL (3.5-5.0); ALKALINE PHOSPHATASE 40 U/L (38-126); ASPARTATE AMINO TRANSFERASE 97 U/L (17-59); BILIRUBIN,DIRECT 0.2 mg/dL (0.0-0.4); BILIRUBIN,TOTAL 0.4 mg/dL (0.2-1.3); BLOOD UREA NITROGEN 29 mg/dL (7-20); GLUCOSE 122 mg/dL (75-110); POTASSIUM 3.2 mmol/L (3.6-5.0); TOTAL PROTEIN 3.8 g/dL (6.3-8.2)
[2019-08-19 05:53] LABS: HEMOGLOBIN 6.5 g/dL (13.5-17.0)
[2019-08-19 05:55] LABS: CARBON DIOXIDE 33 mmol/L (22-30); CHLORIDE 101 mmol/L (98-107)
[2019-08-19 06:00] LABS: ANION GAP 3 (5-19)
[2019-08-19] MEDS ORDERED: POTASSIUM CHLORIDE 10 MEQ TABLET.ER PO ONE (07:19)
[2019-08-19] MEDS: SUCRALFATE 1 GM TABLET PO SCH ×4 (08:12→22:47)
[2019-08-19] MEDS: LEVALBUTEROL HCL NEB 1.25 MG/3 ML AMPUL NEB SCH ×3 (08:29→20:54)
[2019-08-19] MEDS: GUAIFENESIN 600 MG TABLET.SA PO SCH ×2 (09:50→22:46)
[2019-08-19] MEDS: FAMOTIDINE 20 MG TABLET PO SCH ×2 (09:50→22:46)
[2019-08-19] MEDS: CALCIUM CARBONATE 500 MG TAB.CHEW PO SCH ×2 (09:50→22:46)
[2019-08-19] MEDS: PREDNISONE 20 MG TABLET PO SCH ×2 (09:50→17:45)
[2019-08-19] MEDS: METOPROLOL TARTRATE 25 MG TABLET PO SCH ×2 (09:50→22:47)
[2019-08-19] MEDS: PANTOPRAZOLE SODIUM 40 MG VIAL IV SCH (09:51)
[2019-08-19] MEDS: DOCUSATE SODIUM 100 MG/10 ML UDC PO SCH ×2 (09:51→17:45)
--- NOTE | 2019-08-19 09:51 | PDOC PROGRESS REPORT ---
Subjective Progress Note for:: 08/19/19 Subjective:: feels well. no sure if he had bloody bm today Reason For Visit: COPD EXACERBATION,RESPIRATORY FAILURE ugi bleed, duodenal ulcer. Physical Exam Vital Signs: Temp Pulse Resp BP Pulse Ox 97.8 F 93 22 H 114/55 L 94 08/19/19 08:38 08/19/19 08:38 08/19/19 08:38 08/19/19 08:38 08/19/19 08:38 Intake & Output 08/18/19 08/19/19 08/20/19 06:59 06:59 06:59 Intake Total 2610 2390 0 Output Total 0 1055 Balance 2610 1335 0 Weight 106.7 kg 101.8 kg General appearance: PRESENT: no acute distress Head exam: PRESENT: normocephalic Eye exam: PRESENT: EOMI Ear exam: PRESENT: normal external ear exam Mouth exam: PRESENT: moist Teeth exam: PRESENT: poor dentation Neck exam: PRESENT: full ROM Respiratory exam: PRESENT: clear to auscultation ashleigh Cardiovascular exam: PRESENT: RRR Pulses: PRESENT: normal radial pulses, normal femoral pulses Vascular exam: PRESENT: normal capillary refill GI/Abdominal exam: PRESENT: soft Rectal exam: PRESENT: deferred Gentrourinary exam: PRESENT: other Extremities exam: PRESENT: full ROM Musculoskeletal exam: PRESENT: full ROM Neurological exam: PRESENT: alert, oriented to person, oriented to place Psychiatric exam: PRESENT: appropriate affect Skin exam: PRESENT: dry Results Laboratory Results: 08/19/19 03:22 08/19/19 03:22 08/17/19 08/19/19 08/19/19 09:05 03:22 03:22 WBC 18.3 H RBC 2.16 L Hgb 6.5 L D Hct 19.6 L MCV 91 MCH 30.3 MCHC 33.3 RDW 13.7 Plt Count 196 Seg Neutrophils % 84.9 H Sodium 136.8 L Potassium 3.2 L Chloride 101 Carbon Dioxide 33 H Anion Gap 3 L BUN 29 H Creatinine 0.64 Est GFR ( Amer) > 60 Glucose 122 H Calcium 8.0 L Total Bilirubin 0.4 AST 97 H Alkaline Phosphatase 40 Total Protein 3.8 L Albumin 1.9 L Blood Type O POSITIVE Antibody Screen NEGATIVE 12/08/19 12/09/19 12/09/19 18:49 00:36 07:02 Creatine Kinase CK-MB (CK-2) Troponin I 0.369 0.636 0.565 NT-Pro-B Natriuret Pep 87203 H 58031 H 08/08/19 08/18/19 08/18/19 12:56 21:33 21:33 Creatine Kinase 46 L CK-MB (CK-2) 5.19 H Troponin I 0.445 0.129 NT-Pro-B Natriuret Pep 08/19/19 08/19/19 03:22 03:22 Creatine Kinase 62 CK-MB (CK-2) 14.40 H Troponin I 1.430 NT-Pro-B Natriuret Pep Impressions: Lung Scan-VQ NM 08/16/19 13:27 IMPRESSION: NORMAL VENTILATION-PERFUSION LUNG SCAN. NEGATIVE FOR PULMONARY EMBOLI. Chest X-Ray 08/18/19 00:00 IMPRESSION: Slight improvement. No acute posttraumatic findings. Shoulder X-Ray 08/18/19 00:00 IMPRESSION: NEGATIVE STUDY OF THE RIGHT SHOULDER. NO RADIOGRAPHIC EVIDENCE OF ACUTE INJURY. Hip/Pelvis X-Ray 08/18/19 11:53 IMPRESSION: NEGATIVE STUDY OF THE RIGHT HIP. NO RADIOGRAPHIC EVIDENCE OF ACUTE INJURY. Assessment & Plan - Time Time Spent with patient: 25-34 minutes - Plan Summary Plan Summary: pt with bleeding duodenal ulcer s/p clips and injection now [facility] this am of 6.5 recieving txn plan, will cont observation prbc txn if pt conts to bleed may need surgical oversewing of ulcer.
[2019-08-19 10:18] LABS: CREATINE KINASE MB 15.3 ng/mL (<4.55)
[2019-08-19 10:26] LABS: TROPONIN I 1.87 ng/mL
--- NOTE | 2019-08-19 15:01 | PDOC PROGRESS REPORT ---
Subjective Progress Note for:: 08/19/19 Subjective:: This is a 59 year old male with past medical history of COPD, heavy smoker, presented to ED complaining of shortness of breath, was found to have a pH of 7.11, CO2 95 was subsequently transferred to ICU where he was intubated acute hypercapnic respiratory failure. He was successfully extubated on 08/11/2019. He was subsequently transferred to the floor 08/14/2019. He was also evaluated by cardiology because of atrial tachycardia. Lopressor and Cardizem are optimized. 08/16: Upon encounter this morning, he appears comfortable. He denies acute complaints. Denies chest pain or shortness of breath. He is not on home O2. He has been requiring 5 to 6 L of nasal cannula of supplemental O2. Appears platelets have been gradually trending down during his hospital course. Discontinue Lovenox. HIT antibodies sent. Plan was to switch to Arixtra. However this afternoon, RN reported the patient passed out on a black tarry stool. He has not received Arixtra yet. Will discontinue Arixtra. Hold off on further anticoagulation for VTE prophylaxis. Will consult surgery for possible need for EGD. 08/17: Hemoglobin trended down to 8.7 from 11.5 yesterday. Denies chest pain or shortness of breath. Patient initially refused having the EGD and colonoscopy done here as he initially told the surgicalist that he prefers to undergo both procedures and different hospital. Called [facility] and [facility] for possible transfer. Both Medical Centers don't have any available bed. Discussed with patient and he is agreeable to getting the EGD and colonoscopy done here. Surgicalist updated. 08/18: RN reports that patient had a bowel prep and had a few episodes of melanotic stools overnight. Otherwise, patient denies abdominal pain, nausea vomiting. He is scheduled for an EGD and colonoscopy later today. 08/19: Patient underwent EGD and colonoscopy last night and was found to have an actively be bleeding duodenal ulcer. He underwent ligation active bleeding as well as epinephrine injections. His hemoglobin trended down this morning to 6.5 from 9.2. RN reports he had a few dark stools this morning. 2 units of packed RBC has been ordered. Patient also complained of chest pain last night and troponin trended up. No acute EKG changes noted. He appears comfortable at the moment and denies any chest pain or shortness of breath. Reason For Visit: COPD EXACERBATION,RESPIRATORY FAILURE Physical Exam Vital Signs: Temp Pulse Resp BP Pulse Ox 98.1 F 79 16 103/57 L 99 08/19/19 04:04 08/19/19 04:04 08/19/19 04:04 08/19/19 04:04 08/19/19 04:04 Intake & Output 08/18/19 08/19/19 08/20/19 06:59 06:59 06:59 Intake Total 2610 1970 Output Total 0 930 Balance 2610 1040 Weight 235 lb 3.732 oz 235 lb 3.732 oz General appearance: PRESENT: no acute distress, well-developed, well-nourished Head exam: PRESENT: atraumatic, normocephalic Eye exam: PRESENT: conjunctiva pink, EOMI, PERRLA. ABSENT: scleral icterus Ear exam: PRESENT: normal external ear exam Mouth exam: PRESENT: moist, tongue midline Neck exam: ABSENT: carotid bruit, JVD, lymphadenopathy, thyromegaly Respiratory exam: PRESENT: clear to auscultation ashleigh. ABSENT: rales, rhonchi, wheezes Cardiovascular exam: PRESENT: RRR. ABSENT: diastolic murmur, rubs, systolic murmur Pulses: PRESENT: normal dorsalis pedis pul GI/Abdominal exam: PRESENT: normal bowel sounds, soft. ABSENT: distended, gu arding, mass, organolmegaly, rebound, tenderness Rectal exam: PRESENT: deferred Extremities exam: PRESENT: full ROM. ABSENT: calf tenderness, clubbing, pedal edema Neurological exam: PRESENT: alert, awake, oriented to person, oriented to place, oriented to time, oriented to situation, CN II-XII grossly intact. ABSENT: mot or sensory deficit Results Laboratory Results: 08/19/19 03:22 08/19/19 03:22 08/17/19 08/18/19 08/19/19 09:05 06:30 03:22 WBC 21.4 H RBC 3.00 L Hgb 9.2 L Hct 27.3 L MCV 91 MCH 30.7 MCHC 33.7 RDW 13.7 Plt Count 224 Seg Neutrophils % Not Reportable Sodium 136.8 L Potassium 3.2 L Chloride 101 Carbon Dioxide 33 H Anion Gap 3 L BUN 29 H Creatinine 0.64 Est GFR ( Amer) > 60 Glucose 122 H Calcium 8.0 L Total Bilirubin 0.4 AST 97 H Alkaline Phosphatase 40 Total Protein 3.8 L Albumin 1.9 L Blood Type O POSITIVE Antibody Screen NEGATIVE 08/19/19 03:22 WBC 18.3 H RBC 2.16 L Hgb 6.5 L D Hct 19.6 L MCV 91 MCH 30.3 MCHC 33.3 RDW 13.7 Plt Count 196 Seg Neutrophils % 84.9 H Sodium Potassium Chloride Carbon Dioxide Anion Gap BUN Creatinine Est GFR ( Amer) Glucose Calcium Total Bilirubin AST Alkaline Phosphatase Total Protein Albumin Blood Type Antibody Screen 08/07/19 08/08/19 08/08/19 18:49 00:36 07:02 Creatine Kinase CK-MB (CK-2) Troponin I 0.369 0.636 0.565 NT-Pro-B Natriuret Pep 01529 H 34880 H 08/08/19 08/18/19 08/18/19 12:56 21:33 21:33 Creatine Kinase 46 L CK-MB (CK-2) 5.19 H Troponin I 0.445 0.129 NT-Pro-B Natriuret Pep 08/19/19 08/19/19 03:22 03:22 Creatine Kinase 62 CK-MB (CK-2) 14.40 H Troponin I 1.430 NT-Pro-B Natriuret Pep Impressions: Lung Scan-VQ NM 08/16/19 13:27 IMPRESSION: NORMAL VENTILATION-PERFUSION LUNG SCAN. NEGATIVE FOR PULMONARY EMBOLI. Chest X-Ray 08/18/19 00:00 IMPRESSION: Slight improvement. No acute posttraumatic findings. Shoulder X-Ray 08/18/19 00:00 IMPRESSION: NEGATIVE STUDY OF THE RIGHT SHOULDER. NO RADIOGRAPHIC EVIDENCE OF ACUTE INJURY. Hip/Pelvis X-Ray 08/18/19 11:53 IMPRESSION: NEGATIVE STUDY OF THE RIGHT HIP. NO RADIOGRAPHIC EVIDENCE OF ACUTE INJURY. Assessment and Plan - Diagnosis (1) Melena Is this a current diagnosis for this admission?: Yes Plan: Continue IV Protonix. For EGD and colonoscopy. S/P 2 units of packed RBC transfused. Will continue cycle H&H. 08/19: Patient underwent EGD and colonoscopy last night and was found to have an actively bleeding duodenal ulcer. He underwent ligation of active bleeding as well as epinephrine injections. His hemoglobin trended down this morning to 6.5 from 9.2. RN reports he had a few dark stools this morning. 2 units of packed RBC has been ordered. Continue cycle H&H. Surgery closely following. (2) GI bleed Is this a current diagnosis for this admission?: Yes Plan: As per number 1. (3) Elevated troponin Is this a current diagnosis for this admission?: Yes Plan: Patient complained of chest pain last night and troponin trended up. No acute EKG changes noted. He appears comfortable at the moment and denies any chest pain or shortness of breath. Reconsulted cardiology for further recommendations. (4) Atrial tachycardia Is this a current diagnosis for this admission?: Yes Plan: Currently in sinus rhythm. Cardiology following. Continue Cardizem and metoprolol. (5) Thrombocytopenia Is this a current diagnosis for this admission?: Yes Plan: 08/16: Appears platelets have been gradually trending down during this hospital course. Concern for possible HIT. Discontinue Lovenox. HIT antibodies sent. Plan was to switch to Arixtra. However this afternoon, RN reported the patient passed out on a black tarry stool. He has not received Arixtra yet. Will discontinue Arixtra. Hold off on further anticoagulation or pharmacologic VTE prophylaxis. Will consult surgery for possible need for EGD. 08/17: Platelets have improved on repeat CBC today. 08/18: Platelets have recovered. HIT antibody negative. (6) Acute respiratory failure with hypoxia and hypercapnia Is this a current diagnosis for this admission?: Yes Plan: Secondary to COPD exacerbation. Intubated on 08/07/2019. Extubated 08/11/2019. (7) Chronic obstructive pulmonary disease (COPD) Qualifiers: COPD type: COPD with acute lower respiratory infection Qualified Code(s): J44.0 - Chronic obstructive pulmonary disease with (acute) lower respiratory infection Is this a current diagnosis for this admission?: Yes Plan: 08/19: Resolved. Decrease prednisone.
--- NOTE | 2019-08-19 17:08 | EKG REPORT ---
SEVERITY:- ABNORMAL ECG - SINUS TACHYCARDIA PAIRED VENTRICULAR PREMATURE COMPLEXES vs artifacts BORDERLINE T WAVE ABNORMALITIES PROLONGED QT INTERVAL : Confirmed by: Darlyn Flanagan 19-Aug-2019 17:07:40
[2019-08-19] MEDS: CEFTRIAXONE 1 GM/D5W RTU 1 GM/50 ML RTUPB IV SCH (17:45)
[2019-08-19 19:12] LABS: HEMATOCRIT 23.6 % (37.9-51.0); MEAN CORPUSCULAR HEMOGLOBIN 29.7 pg (27.0-33.4); MEAN CORPUSCULAR VOLUME 90 fl (80-97); PLATELET COUNT 161 10^3/uL (150-450); RED BLOOD COUNT 2.62 10^6/uL (4.35-5.55); RED CELL DISTRIBUTION WIDTH 14.2 % (11.5-14.0); WHITE BLOOD COUNT 19.9 10^3/uL (4.0-10.5)
[2019-08-19 19:17] LABS: HEMOGLOBIN 7.8 g/dL (13.5-17.0)
[2019-08-19] MEDS: ATORVASTATIN CALCIUM 20 MG TABLET PO SCH (22:46)
[2019-08-20] MEDS: DILTIAZEM HCL 60 MG TABLET PO SCH ×3 (05:57→21:16)
[2019-08-20] MEDS: LEVALBUTEROL HCL NEB 1.25 MG/3 ML AMPUL NEB SCH ×3 (08:51→20:36)
[2019-08-20] MEDS: GUAIFENESIN 600 MG TABLET.SA PO SCH ×2 (08:59→21:14)
[2019-08-20] MEDS: PREDNISONE 20 MG TABLET PO SCH ×2 (09:00→17:16)
[2019-08-20] MEDS: DOCUSATE SODIUM 100 MG/10 ML UDC PO SCH ×2 (09:00→17:16)
[2019-08-20] MEDS: CALCIUM CARBONATE 500 MG TAB.CHEW PO SCH ×2 (09:00→21:14)
[2019-08-20] MEDS: SUCRALFATE 1 GM TABLET PO SCH ×4 (09:00→21:14)
[2019-08-20] MEDS: FAMOTIDINE 20 MG TABLET PO SCH ×2 (09:00→21:14)
[2019-08-20] MEDS: METOPROLOL TARTRATE 25 MG TABLET PO SCH ×2 (09:00→21:16)
[2019-08-20 10:20] LABS: BLOOD UREA NITROGEN 20 mg/dL (7-20); CARBON DIOXIDE 34 mmol/L (22-30); CHLORIDE 101 mmol/L (98-107); GLUCOSE 134 mg/dL (75-110); POTASSIUM 3.5 mmol/L (3.6-5.0)
[2019-08-20 10:28] LABS: ANION GAP 2 (5-19)
[2019-08-20 10:57] LABS: ABSOLUTE EOSINOPHILS # (AUTO) 0.1 10^3/uL (0.0-0.6); ABSOLUTE LYMPHOCYTES (AUTO) 1.7 10^3/uL (0.5-4.7); ABSOLUTE NEUT (AUTO) 16.9 10^3/uL (1.7-8.2); BASOPHILS % (AUTO) 0.1 % (0-2); EOSINOPHILS % (AUTO) 0.5 % (0-6); HEMOGLOBIN 9.1 g/dL (13.5-17.0); LYMPHOCYTES % (AUTO) 8.5 % (13-45); MEAN CORPUSCULAR HEMOGLOBIN 30.1 pg (27.0-33.4); MEAN CORPUSCULAR HGB CONC 33.9 g/dL (32.0-36.0); MEAN CORPUSCULAR VOLUME 89 fl (80-97); MONOCYTES % (AUTO) 5.3 % (3-13); PLATELET COUNT 159 10^3/uL (150-450); RED BLOOD COUNT 3.04 10^6/uL (4.35-5.55); RED CELL DISTRIBUTION WIDTH 14.6 % (11.5-14.0); SEGMENTED NEUTROPHILS % (AUTO) 85.6 % (42-78); TOTAL CELLS COUNTED % (AUTO) 100 %; WHITE BLOOD COUNT 19.7 10^3/uL (4.0-10.5)
--- NOTE | 2019-08-20 11:04 | PDOC PROGRESS REPORT ---
Subjective Progress Note for:: 08/20/19 Subjective:: This is a 59 year old male with past medical history of COPD, heavy smoker, presented to ED complaining of shortness of breath, was found to have a pH of 7.11, CO2 95 was subsequently transferred to ICU where he was intubated acute hypercapnic respiratory failure. He was successfully extubated on 08/11/2019. He was subsequently transferred to the floor 08/14/2019. He was also evaluated by cardiology because of atrial tachycardia. Lopressor and Cardizem are optimized. 08/16: Upon encounter this morning, he appears comfortable. He denies acute complaints. Denies chest pain or shortness of breath. He is not on home O2. He has been requiring 5 to 6 L of nasal cannula of supplemental O2. Appears platelets have been gradually trending down during his hospital course. Discontinue Lovenox. HIT antibodies sent. Plan was to switch to Arixtra. However this afternoon, RN reported the patient passed out on a black tarry stool. He has not received Arixtra yet. Will discontinue Arixtra. Hold off on further anticoagulation for VTE prophylaxis. Will consult surgery for possible need for EGD. 08/17: Hemoglobin trended down to 8.7 from 11.5 yesterday. Denies chest pain or shortness of breath. Patient initially refused having the EGD and colonoscopy done here as he initially told the surgicalist that he prefers to undergo both procedures and different hospital. Called [facility] and [facility] for possible transfer. Both Medical Centers don't have any available bed. Discussed with patient and he is agreeable to getting the EGD and colonoscopy done here. Surgicalist updated. 08/18: RN reports that patient had a bowel prep and had a few episodes of melanotic stools overnight. Otherwise, patient denies abdominal pain, nausea vomiting. He is scheduled for an EGD and colonoscopy later today. 08/19: Patient underwent EGD and colonoscopy last night and was found to have an actively be bleeding duodenal ulcer. He underwent ligation active bleeding as well as epinephrine injections. His hemoglobin trended down this morning to 6.5 from 9.2. RN reports he had a few dark stools this morning. 2 units of packed RBC has been ordered. Patient also complained of chest pain last night and troponin trended up. No acute EKG changes noted. He appears comfortable at the moment and denies any chest pain or shortness of breath. 08/20: Patient's hemoglobin only went up to 7.2 from 6.5 after 2 units of packed RBCs. He continued to have a few episodes of melanotic stools. 2 units of packed RBC were ordered earlier this morning. He appears comfortable in contour. Denies chest pain or shortness of breath. Denies abdominal pain. Reason For Visit: COPD EXACERBATION,RESPIRATORY FAILURE Physical Exam Vital Signs: Temp Pulse Resp BP Pulse Ox 98.1 F 102 H 18 109/61 96 08/20/19 07:28 08/20/19 08:52 08/20/19 08:52 08/20/19 07:28 08/20/19 08:52 Intake & Output 08/19/19 08/20/19 08/21/19 06:59 06:59 06:59 Intake Total 2390 3030 330 Output Total 1055 1025 Balance 1335 2005 330 Weight 237 lb 10.533 oz 240 lb 15.444 oz General appearance: PRESENT: no acute distress, well-developed, well-nourished Head exam: PRESENT: atraumatic, normocephalic Eye exam: PRESENT: conjunctiva pink, EOMI, PERRLA. ABSENT: scleral icterus Ear exam: PRESENT: normal external ear exam Mouth exam: PRESENT: moist, tongue midline Neck exam: ABSENT: carotid bruit, JVD, lymphadenopathy, thyromegaly Respiratory exam: PRESENT: clear to auscultation ashleigh. ABSENT: rales, rhonchi, wheezes Cardiovascular exam: PRESENT: RRR. ABSENT: diastolic murmur, rubs, systolic murmur Pulses: PRESENT: normal dorsalis pedis pul GI/Abdominal exam: PRESENT: normal bowel sounds, soft. ABSENT: distended, guarding, mass, organolmegaly, rebound, tenderness Rectal exam: PRESENT: deferred Extremities exam: PRESENT: full ROM. ABSENT: calf tenderness, clubbing, pedal edema Neurological exam: PRESENT: alert, awake, oriented to person, oriented to place, oriented to time, oriented to situation, CN II-XII grossly intact. ABSENT: motor sensory deficit Results Laboratory Results: 08/20/19 10:42 08/20/19 09:25 08/17/19 08/19/19 08/19/19 09:05 18:47 18:47 WBC 19.9 H RBC 2.62 L Hgb 7.8 L Hct 23.6 L MCV 90 MCH 29.7 MCHC 33.0 RDW 14.2 H Plt Count 161 Seg Neutrophils % Sodium Potassium 4.0 Chloride Carbon Dioxide Anion Gap BUN Creatinine Est GFR ( Amer) Glucose Calcium Blood Type O POSITIVE Antibody Screen NEGATIVE 08/20/19 08/20/19 08/20/19 09:25 09:25 10:42 WBC Cancelled 19.7 H RBC Cancelled 3.04 L Hgb Cancelled 9.1 L Hct Cancelled 27.0 L MCV Cancelled 89 MCH Cancelled 30.1 MCHC Cancelled 33.9 RDW Cancelled 14.6 H Plt Count Cancelled 159 Seg Neutrophils % Cancelled 85.6 H Sodium 137.1 Potassium 3.5 L Chloride 101 Carbon Dioxide 34 H Anion Gap 2 L BUN 20 Creatinine 0.54 Est GFR ( Amer) > 60 Glucose 134 H Calcium 8.0 L Blood Type Antibody Screen 08/07/19 08/08/19 08/08/19 18:49 00:36 07:02 Creatine Kinase CK-MB (CK-2) Troponin I 0.369 0.636 0.565 NT-Pro-B Natriuret Pep 72167 H 77507 H 08/08/19 08/18/19 08/18/19 12:56 21:33 21:33 Creatine Kinase 46 L CK-MB (CK-2) 5.19 H Troponin I 0.445 0.129 NT-Pro-B Natriuret Pep 08/19/19 08/19/19 08/19/19 03:22 03:22 09:34 Creatine Kinase 62 59 CK-MB (CK-2) 14.40 H Troponin I 1.430 NT-Pro-B Natriuret Pep 08/19/19 09:34 Creatine Kinase CK-MB (CK-2) 15.30 H Troponin I 1.870 NT-Pro-B Natriuret Pep Impressions: Lung Scan-VQ NM 08/16/19 13:27 IMPRESSION: NORMAL VENTILATION-PERFUSION LUNG SCAN. NEGATIVE FOR PULMONARY EMBOLI. Chest X-Ray 08/18/19 00:00 IMPRESSION: Slight improvement. No acute posttraumatic findings. Shoulder X-Ray 08/18/19 00:00 IMPRESSION: NEGATIVE STUDY OF THE RIGHT SHOULDER. NO RADIOGRAPHIC EVIDENCE OF ACUTE INJURY. Hip/Pelvis X-Ray 08/18/19 11:53 IMPRESSION: NEGATIVE STUDY OF THE RIGHT HIP. NO RADIOGRAPHIC EVIDENCE OF ACUTE INJURY. Assessment and Plan - Diagnosis (1) Melena Is this a current diagnosis for this admission?: Yes Plan: Continue IV Protonix. For EGD and colonoscopy. S/P 2 units of packed RBC transfused. Will continue cycle H&H. 08/19: Patient underwent EGD and colonoscopy last night and was found to have an actively bleeding duodenal ulcer. He underwent ligation of active bleeding as well as epinephrine injections. His hemoglobin trended down this morning to 6.5 from 9.2. RN reports he had a few dark stools this morning. 2 units of packed RBC has been ordered. Continue cycle H&H. Surgery closely following. 08/20: Patient's hemoglobin only went up to 7.2 from 6.5 after 2 units of packed RBCs. He continued to have a few episodes of melanotic stools. 2 units of packed RBC were ordered earlier this morning. Await further recommendations from surgery. (2) GI bleed Is this a current diagnosis for this admission?: Yes Plan: As per number 1. (3) Elevated troponin Is this a current diagnosis for this admission?: Yes Plan: 08/19: Patient complained of chest pain on 08/18 and troponin trended up. No a cute EKG changes noted. He appears comfortable at the moment and denies any chest pain or shortness of breath. Reconsulted cardiology for further recommendations. 08/20: He has been chest pain free since yesterday. Await further recommendations from cardiology. (4) Atrial tachycardia Is this a current diagnosis for this admission?: Yes Plan: Currently in sinus rhythm. Cardiology following. Continue Cardizem and metoprolol. (5) Thrombocytopenia Is this a current diagnosis for this admission?: Yes Plan: 08/16: Appears platelets have been gradually trending down during this hospital course. Concern for possible HIT. Discontinue Lovenox. HIT antibodies sent. Plan was to switch to Arixtra. However this afternoon, RN reported the patient passed out on a black tarry stool. He has not received Arixtra yet. Will discontinue Arixtra. Hold off on further anticoagulation or pharmacologic VTE prophylaxis. Will consult surgery for possible need for EGD. 08/17: Platelets have improved on repeat CBC today. 08/18: Platelets have recovered. HIT antibody negative. (6) Acute respiratory failure with hypoxia and hypercapnia Is this a current diagnosis for this admission?: Yes Plan: Secondary to COPD exacerbation. Intubated on 08/07/2019. Extubated 08/11/2019. (7) Chronic obstructive pulmonary disease (COPD) Qualifiers: COPD type: COPD with acute lower respiratory infection Qualified Code(s): J44.0 - Chronic obstructive pulmonary disease with (acute) lower respiratory infection Is this a current diagnosis for this admission?: Yes Plan: 08/19: Resolved. Decrease prednisone. - Time Time Spent with patient: 25-34 minutes
--- NOTE | 2019-08-20 11:32 | PDOC PROGRESS REPORT ---
Subjective Progress Note for:: 08/20/19 Subjective:: Patient is doing well. Overnight had elevated troponins. he did complain of chest pain the night before. Reason For Visit: COPD EXACERBATION,RESPIRATORY FAILURE Physical Exam Vital Signs: Temp Pulse Resp BP Pulse Ox 98.1 F 102 H 18 109/61 96 08/20/19 07:28 08/20/19 08:52 08/20/19 08:52 08/20/19 07:28 08/20/19 08:52 Intake & Output 08/19/19 08/20/19 08/21/19 06:59 06:59 06:59 Intake Total 2390 3030 330 Output Total 1055 1025 Balance 1335 2004 330 Weight 107.8 kg 109.3 kg General appearance: PRESENT: no acute distress Head exam: PRESENT: atraumatic Eye exam: PRESENT: conjunctival injection, conjunctiva pink, conjunctiva pale, EOMI, nystagmus, periorbital swelling, PERRLA, scleral icterus, other Mouth exam: PRESENT: dry mucosa, moist Cardiovascular exam: PRESENT: +S1, +S2, systolic murmur Pulses: PRESENT: normal carotid pulses, normal radial pulses GI/Abdominal exam: PRESENT: normal bowel sounds, soft. ABSENT: distended, guarding, mass, organolmegaly, rebound, tenderness Extremities exam: PRESENT: full ROM. ABSENT: calf tenderness, clubbing, pedal edema Neurological exam: PRESENT: alert - Why did somebody get in touch with, awake, oriented to person, oriented to place, oriented to time, oriented to situation, CN II-XII grossly intact. ABSENT: motor sensory deficit Psychiatric exam: PRESENT: agitated - None, appropriate affect, normal mood. ABSENT: homicidal ideation, suicidal ideation Skin exam: PRESENT: dry, intact, warm. ABSENT: cyanosis, rash Results Laboratory Results: 08/20/19 10:42 08/20/19 09:25 08/17/19 08/19/19 08/19/19 09:05 18:47 18:47 WBC 19.9 H RBC 2.62 L Hgb 7.8 L Hct 23.6 L MCV 90 MCH 29.7 MCHC 33.0 RDW 14.2 H Plt Count 161 Seg Neutrophils % Sodium Potassium 4.0 Chloride Carbon Dioxide Anion Gap BUN Creatinine Est GFR ( Amer) Glucose Calcium Blood Type O POSITIVE Antibody Screen NEGATIVE 08/20/19 08/20/19 08/20/19 09:25 09:25 10:42 WBC Cancelled 19.7 H RBC Cancelled 3.04 L Hgb Cancelled 9.1 L Hct Cancelled 27.0 L MCV Cancelled 89 MCH Cancelled 30.1 MCHC Cancelled 33.9 RDW Cancelled 14.6 H Plt Count Cancelled 159 Seg Neutrophils % Cancelled 85.6 H Sodium 137.1 Potassium 3.5 L Chloride 101 Carbon Dioxide 34 H Anion Gap 2 L BUN 20 Creatinine 0.54 Est GFR ( Amer) > 60 Glucose 134 H Calcium 8.0 L Blood Type Antibody Screen 08/07/19 08/08/19 08/08/19 18:49 00:36 07:02 Creatine Kinase CK-MB (CK-2) Troponin I 0.369 0.636 0.565 NT-Pro-B Natriuret Pep 63209 H 65949 H 08/08/19 08/18/19 08/18/19 12:56 21:33 21:33 Creatine Kinase 46 L CK-MB (CK-2) 5.19 H Troponin I 0.445 0.129 NT-Pro-B Natriuret Pep 08/19/19 08/19/19 08/19/19 03:22 03:22 09:34 Creatine Kinase 62 59 CK-MB (CK-2) 14.40 H Troponin I 1.430 NT-Pro-B Natriuret Pep 08/19/19 09:34 Creatine Kinase CK-MB (CK-2) 15.30 H Troponin I 1.870 NT-Pro-B Natriuret Pep Impressions: Lung Scan-VQ NM 08/16/19 13:27 IMPRESSION: NORMAL VENTILATION-PERFUSION LUNG SCAN. NEGATIVE FOR PULMONARY EMBOLI. Chest X-Ray 08/18/19 00:00 IMPRESSION: Slight improvement. No acute posttraumatic findings. Shoulder X-Ray 08/18/19 00:00 IMPRESSION: NEGATIVE STUDY OF THE RIGHT SHOULDER. NO RADIOGRAPHIC EVIDENCE OF ACUTE INJURY. Hip/Pelvis X-Ray 08/18/19 11:53 IMPRESSION: NEGATIVE STUDY OF THE RIGHT HIP. NO RADIOGRAPHIC EVIDENCE OF ACUTE INJURY. Assessment & Plan - Diagnosis (1) Elevated troponin Is this a current diagnosis for this admission?: Yes Plan: no further work up planned at this time. patient is admitted with gi bleed. he will need further work up as an outpatient.
--- NOTE | 2019-08-20 14:20 | PDOC PROGRESS REPORT ---
Subjective Progress Note for:: 08/20/19 Subjective:: This is a 59-year-old male status post endoscopic control of a bleeding duodenal ulcer. The patient reports feeling "better" today. He continues to have loose, melanotic stool. He denies dizziness, orthostasis, shortness of breath, headache, nausea, vomiting, or continued chest pain. Reason For Visit: COPD EXACERBATION,RESPIRATORY FAILURE Physical Exam Vital Signs: Temp Pulse Resp BP Pulse Ox 98.7 F 89 18 119/65 98 08/20/19 10:45 08/20/19 10:45 08/20/19 10:45 08/20/19 10:45 08/20/19 10:45 Intake & Output 08/19/19 08/20/19 08/21/19 06:59 06:59 06:59 Intake Total 2390 3030 1170 Output Total 1055 1025 300 Balance 1335 2005 870 Weight 107.8 kg 109.3 kg Exam: General appearance: PRESENT: no acute distress, cooperative Head exam: PRESENT: atraumatic, normocephalic Eye exam: PRESENT: EOMI, PERRLA. ABSENT: scleral icterus Mouth exam: PRESENT: moist, neck supple Neck exam: ABSENT: meningismus, tenderness, thyromegaly, tracheal deviation, tracheostomy Respiratory exam: PRESENT: unlabored. ABSENT: chest wall tenderness, tachypnea Cardiovascular exam: PRESENT: RRR Pulses: PRESENT: normal radial pulses GI/Abdominal exam: PRESENT: soft. ABSENT: tenderness Rectal exam: PRESENT: deferred Extremities exam: ABSENT: clubbing Musculoskeletal exam: ABSENT: deformity Neurological exam: PRESENT: alert, awake, oriented to person, oriented to place, oriented to time, oriented to situation, CN II-XII grossly intact. ABSENT: motor sensory deficit Psychiatric exam: PRESENT: agitated - Mildly. ABSENT: anxious, depressed Focused psych exam: ABSENT: delusional Skin exam: ABSENT: cyanosis, erythema, jaundice Results Laboratory Results: 08/20/19 10:42 08/20/19 09:25 08/17/19 08/19/19 08/19/19 09:05 18:47 18:47 WBC 19.9 H RBC 2.62 L Hgb 7.8 L Hct 23.6 L MCV 90 MCH 29.7 MCHC 33.0 RDW 14.2 H Plt Count 161 Seg Neutrophils % Sodium Potassium 4.0 Chloride Carbon Dioxide Anion Gap BUN Creatinine Est GFR ( Amer) Glucose Calcium Blood Type O POSITIVE Antibody Screen NEGATIVE 08/20/19 08/20/19 08/20/19 09:25 09:25 10:42 WBC Cancelled 19.7 H RBC Cancelled 3.04 L Hgb Cancelled 9.1 L Hct Cancelled 27.0 L MCV Cancelled 89 MCH Cancelled 30.1 MCHC Cancelled 33.9 RDW Cancelled 14.6 H Plt Count Cancelled 159 Seg Neutrophils % Cancelled 85.6 H Sodium 137.1 Potassium 3.5 L Chloride 101 Carbon Dioxide 34 H Anion Gap 2 L BUN 20 Creatinine 0.54 Est GFR ( Amer) > 60 Glucose 134 H Calcium 8.0 L Blood Type Antibody Screen 08/15/19 13:05 Blood Blood Culture - Final NO GROWTH IN 5 DAYS 08/15/19 13:14 Blood Blood Culture - Final NO GROWTH IN 5 DAYS 08/07/19 08/08/19 08/08/19 18:49 00:36 07:02 Creatine Kinase CK-MB (CK-2) Troponin I 0.369 0.636 0.565 NT-Pro-B Natriuret Pep 18088 H 77749 H 08/08/19 08/18/19 08/18/19 12:56 21:33 21:33 Creatine Kinase 46 L CK-MB (CK-2) 5.19 H Troponin I 0.445 0.129 NT-Pro-B Natriuret Pep 08/19/19 08/19/19 08/19/19 03:22 03:22 09:34 Creatine Kinase 62 59 CK-MB (CK-2) 14.40 H Troponin I 1.430 NT-Pro-B Natriuret Pep 08/19/19 09:34 Creatine Kinase CK-MB (CK-2) 15.30 H Troponin I 1.870 NT-Pro-B Natriuret Pep Impressions: Lung Scan-VQ NM 08/16/19 13:27 IMPRESSION: NORMAL VENTILATION-PERFUSION LUNG SCAN. NEGATIVE FOR PULMONARY EMBOLI. Chest X-Ray 08/18/19 00:00 IMPRESSION: Slight improvement. No acute posttraumatic findings. Shoulder X-Ray 08/18/19 00:00 IMPRESSION: NEGATIVE STUDY OF THE RIGHT SHOULDER. NO RADIOGRAPHIC EVIDENCE OF ACUTE INJURY. Hip/Pelvis X-Ray 08/18/19 11:53 IMPRESSION: NEGATIVE STUDY OF THE RIGHT HIP. NO RADIOGRAPHIC EVIDENCE OF ACUTE INJURY. Assessment & Plan - Diagnosis (1) Melena Is this a current diagnosis for this admission?: Yes (2) Duodenal ulcer hemorrhage Is this a current diagnosis for this admission?: Yes - Time Time Spent with patient: Less than 15 minutes - Plan Summary Plan Summary: This is a 59-year-old male status post endoscopic control of a bleeding duodenal ulcer. The patient's hemoglobin is much improved today. He continues to have dark, tarry stools but this is not unexpected with a proximal GI bleed. I have examined the patient stools today. It is mostly melanotic particulate matter. There is no red blood or clots. I will repeat his hemoglobin this afternoon. My suspicion is very low for ongoing GI bleeding. The patient's color is much better today. His vital signs are stable. I will continue to follow this patient with you.
[2019-08-20] MEDS ORDERED: OXYCODONE-ACETAMINOPHEN 5-325 MG TABLET PO PRN (15:16)
[2019-08-20] MEDS ORDERED: NITROGLYCERIN 0.4 MG/TAB 25 TAB/BOTTLE SL PRN (16:00)
--- NOTE | 2019-08-20 16:55 | RADIOLOGY REPORT (SQ) ---
EXAM DESCRIPTION: CHEST SINGLE VIEW COMPLETED DATE/TIME: 08/20/2019 4:41 pm REASON FOR STUDY: Chest pain COMPARISON: 08/18/2019 TECHNIQUE: Single frontal radiographic view of the chest acquired. NUMBER OF VIEWS: One view. LIMITATIONS: None. FINDINGS: LUNGS AND PLEURA: No pneumothorax. Persistent bibasilar airspace opacities, slight improv ed aeration on the left. No significant pleural effusion. MEDIASTINUM AND HILAR STRUCTURES: Stable. HEART AND VASCULAR STRUCTURES: Stable. BONES: No acute findings. HARDWARE: Right IJ central venous catheter, stable. OTHER: No other significant finding. IMPRESSION: Persistent bibasilar airspace opacities, slight improved aeration on the left. No signi ficant pleural effusion. TECHNICAL DOCUMENTATION: JOB ID: [id number] [id number] 2010 [employer]- All Rights Reserved Reading location - IP/workstation name: [email or web address]
[2019-08-20] MEDS ORDERED: FUROSEMIDE INJ/PF 20 MG/2 ML SDV IV ONE (17:03)
[2019-08-20] MEDS: ACETAMINOPHEN 325 MG TABLET PO PRN (17:15)
[2019-08-20] MEDS: CEFTRIAXONE 1 GM/D5W RTU 1 GM/50 ML RTUPB IV SCH (17:16)
[2019-08-20 18:28] LABS: MEAN CORPUSCULAR HEMOGLOBIN 30.3 pg (27.0-33.4); MEAN CORPUSCULAR HGB CONC 34.4 g/dL (32.0-36.0); MEAN CORPUSCULAR VOLUME 88 fl (80-97); PLATELET COUNT 205 10^3/uL (150-450); RED CELL DISTRIBUTION WIDTH 14.5 % (11.5-14.0); WHITE BLOOD COUNT 22.1 10^3/uL (4.0-10.5)
[2019-08-20 18:35] LABS: HEMATOCRIT 32.8 % (37.9-51.0)
[2019-08-20 19:25] LABS: C DIFFICILE GDH NEGATIVE (NEGATIVE)
[2019-08-20] MEDS: ATORVASTATIN CALCIUM 20 MG TABLET PO SCH (21:14)
[2019-08-20] MEDS: POTASSIUM CHLORIDE 10 MEQ TABLET.ER PO SCH (21:14)
--- NOTE | 2019-08-20 21:26 | EKG REPORT ---
SEVERITY:- ABNORMAL ECG - SINUS RHYTHM ST DEPRESSION, CONSIDER ISCHEMIA, LAT LEADS : Confirmed by: Darlyn Flanagan 20-Aug-2019 21:25:22
[2019-08-21] MEDS: DILTIAZEM HCL 60 MG TABLET PO SCH (05:32)
[2019-08-21 06:10] LABS: ABSOLUTE LYMPHOCYTES (AUTO) 1.3 10^3/uL (0.5-4.7); ABSOLUTE MONOCYTES (AUTO) 0.7 10^3/uL (0.1-1.4); BASOPHILS % (AUTO) 0.2 % (0-2); EOSINOPHILS % (AUTO) 0.3 % (0-6); HEMATOCRIT 25.5 % (37.9-51.0); MEAN CORPUSCULAR HEMOGLOBIN 30.1 pg (27.0-33.4); MEAN CORPUSCULAR HGB CONC 33.9 g/dL (32.0-36.0); MEAN CORPUSCULAR VOLUME 89 fl (80-97); MONOCYTES % (AUTO) 4.4 % (3-13); PLATELET COUNT 168 10^3/uL (150-450); RED BLOOD COUNT 2.86 10^6/uL (4.35-5.55); RED CELL DISTRIBUTION WIDTH 14.3 % (11.5-14.0); SEGMENTED NEUTROPHILS % (AUTO) 87.1 % (42-78); TOTAL CELLS COUNTED % (AUTO) 100 %; WHITE BLOOD COUNT 16.1 10^3/uL (4.0-10.5)
[2019-08-21 06:20] LABS: HEMOGLOBIN 8.6 g/dL (13.5-17.0)
[2019-08-21 06:29] LABS: BLOOD UREA NITROGEN 15 mg/dL (7-20); CHLORIDE 99 mmol/L (98-107); GLUCOSE 81 mg/dL (75-110); POTASSIUM 3.7 mmol/L (3.6-5.0)
[2019-08-21 06:35] LABS: CARBON DIOXIDE 37 mmol/L (22-30)
[2019-08-21 06:39] LABS: ANION GAP 1 (5-19)
[2019-08-21] MEDS: ACETAMINOPHEN 325 MG TABLET PO PRN (07:08)
--- NOTE | 2019-08-21 08:15 | PDOC TRANSFER SUMMARY ---
General Admission Date/PCP: 08/07/19 22:09 Resuscitation Status: Full Code - Transfer Diagnosis (1) Melena Is this a current diagnosis for this admission?: Yes (2) GI bleed Is this a current diagnosis for this admission?: Yes (3) Elevated troponin Is this a current diagnosis for this admission?: Yes (4) Atrial tachycardia Is this a current diagnosis for this admission?: Yes (5) Thrombocytopenia Is this a current diagnosis for this admission?: Yes (6) Acute respiratory failure with hypoxia and hypercapnia Is this a current diagnosis for this admission?: Yes (7) Chronic obstructive pulmonary disease (COPD) Is this a current diagnosis for this admission?: Yes - Transfer Medications Home Medications: No Home Medications 08/08/19 Transfer Medications: Current Medications Acetaminophen (Tylenol 325 Mg Tablet) 650 mg PO Q4HP PRN PRN Reason: FOR PAIN SCALE 1-3 Stop: 09/19/19 17:05 Last Admin: 08/21/19 07:08 Dose: 650 mg Documented by: Al Hydrox/Mg Hydrox/Simethicone (Maalox Plus Susp 30 Udcup) 15 ml PO Q6HP PRN PRN Reason: HEARTBURN Stop: 09/14/19 12:08 Atorvastatin Calcium (Lipitor 20 Mg Tablet) 20 mg PO QHS [facility] Stop: 09/14/19 21:59 Last Admin: 08/20/19 21:14 Dose: 20 mg Documented by: Calcium Carbonate (Tums Chewable 500 Mg Tab.Chew) 1,000 mg PO Q12 [facility] Stop: 09/17/19 21:59 Last Admin: 08/20/19 21:14 Dose: 1,000 mg Documented by: Dextrose (Dextrose Inj 50% Syringe (25 Gm/50 Ml)) 12.5 gm IV PRN PRN; Protocol PRN Reason: FOR BG 50-69 IN ALERT PATIENT Stop: 09/15/19 18:50 Dextrose (Dextrose Inj 50% Syringe (25 Gm/50 Ml)) 25 gm IV PRN PRN; Protocol PRN Reason: See Label Comments Stop: 09/15/19 18:50 Diltiazem HCl (Cardizem 60 Mg Tablet) 60 mg PO Q8 [facility] Stop: 09/12/19 11:59 Last Admin: 08/21/19 05:32 Dose: Not Given Documented by: Docusate Sodium (Colace Udc 100 Mg/10 Ml Oral Soln) 100 mg PO BID [facility] Stop: 09/14/19 17:59 Last Admin: 08/20/19 17:16 Dose: Not Given Documented by: Famotidine (Pepcid 20 Mg Tablet) 20 mg PO Q12 [facility] Stop: 09/14/19 21:59 Last Admin: 08/20/19 21:14 Dose: 20 mg Documented by: Glucagon (Glucagen Inj 1 Mg Vial) 1 mg SUBCUT PRN PRN; Protocol PRN Reason: Evaluate for BG < 70 Stop: 09/15/19 18:50 Glucose (Glutose 40% Gel 15 Gm Tube) 15 gm PO PRN PRN; Protocol PRN Reason: For BG 50-69 in Alert Patient Stop: 09/15/19 18:50 Glucose (Glutose 40% Gel 15 Gm Tube) 30 gm PO PRN PRN; Protocol PRN Reason: FOR BG < 50 IN ALERT PATIENT Stop: 09/15/19 18:50 Guaifenesin (Mucinex Sr 600 Mg Tablet.Sa) 600 mg PO Q12 [facility] Stop: 09/14/19 21:59 Last Admin: 08/20/19 21:14 Dose: 600 mg Documented by: Heparin Sodium (Porcine) (Heparin Flush 10 Unit/Ml 5 Ml Disp.Syrg) 30 unit IV Q8 [facility] Stop: 09/19/19 21:59 Last Admin: 08/21/19 05:33 Dose: 30 unit Documented by: Heparin Sodium (Porcine) (Heparin Flush 10 Unit/Ml 5 Ml Disp.Syrg) 30 unit IV .AFTER EACH USE PRN PRN Reason: AFTER EACH INTERMITTENT USE Stop: 09/19/19 14:59 Last Admin: 08/20/19 17:19 Dose: 30 unit Documented by: Hydralazine HCl (Apresoline Inj/Pf 20 Mg/1 Ml Sdv) 10 mg IV Q3HP PRN PRN Reason: Give For Sbp > [150] Stop: 09/14/19 12:07 Ceftriaxone Sodium/Dextrose (Rocephin Rtu 1 Gm/D5w 50 Ml Premix) 1 gm in 50 mls @ 100 mls/hr IV QPM [facility] Stop: 08/22/19 17:59 Last Infusion: 08/20/19 18:38 Dose: Infused Documented by: Levalbuterol HCl (Xopenex Neb 1.25 Mg/3 Ml Ampul) 1.25 mg NEB RTQ6HP PRN PRN Reason: SHORTNESS OF BREATH Stop: 09/14/19 12:10 Levalbuterol HCl (Xopenex Neb 1.25 Mg/3 Ml Ampul) 1.25 mg NEB [id number] [facility] Stop: 09/14/19 13:59 Last Admin: 08/20/19 20:36 Dose: 1.25 mg Documented by: Metoprolol Tartrate (Lopressor 25 Mg Tablet) 12.5 mg PO Q12 [facility] Stop: 09/15/19 21:59 Last Admin: 08/20/19 21:16 Dose: Not Given Documented by: Nicotine (Nicoderm 21 Mg/24 Hr Transderm Patch) 1 each TD DAILYP PRN PRN Reason: WITHDRAWAL SYMPTOMS Stop: 09/14/19 12:07 Nitroglycerin (Nitrostat 0.4 Mg (1/150 Gr) Tabs 25/Bottle) 1 tab SL Q5MP PRN PRN Reason: FOR CHEST PAIN Stop: 09/19/19 15:59 Oxycodone/Acetaminophen (Percocet 5-325 Mg Tablet) 1 tab PO Q6HP PRN PRN Reason: FOR PAIN Stop: 08/27/19 15:15 Potassium Chloride (Klor-Con 10 Meq Tablet Er) 20 meq PO Q12 [facility] Stop: 09/19/19 21:59 Last Admin: 08/20/19 21:14 Dose: 20 meq Documented by: Prednisone (Deltasone 20 Mg Tablet) 10 mg PO BID [facility] Stop: 09/18/19 17:59 Last Admin: 08/20/19 17:16 Dose: 10 mg Documented by: Sodium Chloride (Saline Flush 2.5 Ml Monoject Prefil Syrin) 2.5 ml IV Q8 [facility] Stop: 09/07/19 05:59 Last Admin: 08/21/19 05:33 Dose: 2.5 ml Documented by: Sucralfate (Carafate 1 Gm Tablet) 1 gm PO ACHS [facility] Stop: 09/17/19 21:59 Last Admin: 08/20/19 21:14 Dose: 1 gm Documented by: - Allergies Allergies/Adverse Reactions: No Known Allergies Allergy (Verified 12/27/13 15:08) Hospital Course Hospital Course: This is a 59 year old male with past medical history of COPD, heavy smoker, presented to ED complaining of shortness of breath, was found to have a pH of 7.11, CO2 95 was subsequently transferred to ICU where he was intubated acute hypercapnic respiratory failure. He was successfully extubated on 08/11/2019. He was subsequently transferred to the floor 08/14/2019. He was also evaluated by cardiology because of atrial tachycardia. Lopressor and Cardizem were optimized. For while on the floor, he developed melanotic stools. His hemoglobin did significantly trend down. He was started on IV Protonix. He was seen by surgery and had an EGD done which showed an actively bleeding duodenal ulcer. He underwent ligation active bleeding as well as epinephrine injections. He received 2 units of packed RBC initially with improvement in his hemoglobin. However hemoglobin trended down again. He received 2 more units of packed RBCs. He did develop chest pain and his troponins significantly trended up with max level of 1.8. He was reevaluated by cardiology. His EKG did show a new changes with ST depressions on the lateral leads. He is likely having an NSTEMI but is not amenable to anticoagulation at this time due to active GI bleed. Patient will be transferred to [facility] for cardiac catheterization. Physical Exam Vital Signs: Temp Pulse Resp BP Pulse Ox 98.2 F 88 17 105/67 100 08/21/19 07:31 08/21/19 07:31 08/21/19 07:31 08/21/19 07:31 08/21/19 07:31 Intake & Output 08/20/19 08/21/19 08/22/19 06:59 06:59 06:59 Intake Total 3030 2220 Output Total 1025 2024 Balance 2004 195 Weight 240 lb 15.444 oz 241 lb 6.499 oz General appearance: PRESENT: no acute distress, well-developed, well-nourished Head exam: PRESENT: atraumatic, normocephalic Eye exam: PRESENT: conjunctiva pink, EOMI, PERRLA. ABSENT: scleral icterus Ear exam: PRESENT: normal external ear exam Mouth exam: PRESENT: moist, tongue midline Neck exam: ABSENT: carotid bruit, JVD, lymphadenopathy, thyromegaly Respiratory exam: PRESENT: clear to auscultation ashleigh. ABSENT: rales, rhonchi, wheezes Cardiovascular exam: PRESENT: RRR. ABSENT: diastolic murmur, rubs, systolic murmur Pulses: PRESENT: normal dorsalis pedis pul GI/Abdominal exam: PRESENT: normal bowel sounds, soft. ABSENT: distended, guarding, mass, organolmegaly, rebound, tenderness Rectal exam: PRESENT: deferred Extremities exam: PRESENT: full ROM, +1 edema. ABSENT: calf tenderness, clubbing Neurological exam: PRESENT: alert, awake, oriented to person, oriented to place, oriented to time, oriented to situation, CN II-XII grossly intact. ABSENT: motor sensory deficit Results Laboratory Results: 08/21/19 05:25 08/21/19 05:25 08/20/19 08/20/19 08/20/19 09:25 09:25 10:42 WBC Cancelled 19.7 H RBC Cancelled 3.04 L Hgb Cancelled 9.1 L Hct Cancelled 27.0 L MCV Cancelled 89 MCH Cancelled 30.1 MCHC Cancelled 33.9 RDW Cancelled 14.6 H Plt Count Cancelled 159 Seg Neutrophils % Cancelled 85.6 H Sodium 137.1 Potassium 3.5 L Chloride 101 Carbon Dioxide 34 H Anion Gap 2 L BUN 20 Creatinine 0.54 Est GFR ( Amer) > 60 Glucose 134 H Calcium 8.0 L 08/20/19 08/21/19 08/21/19 18:20 05:25 05:25 WBC 22.1 H 16.1 H RBC 3.70 L 2.86 L Hgb 11.0 L 8.6 L D Hct 32.8 L 25.5 L MCV 88 89 MCH 30.3 30.1 MCHC 34.4 33.9 RDW 14.5 H 14.3 H Plt Count 205 168 Seg Neutrophils % 87.1 H Sodium 136.3 L Potassium 3.7 Chloride 99 Carbon Dioxide 37 H Anion Gap 1 L BUN 15 Creatinine 0.50 L Est GFR ( Amer) > 60 Glucose 81 Calcium 8.0 L 08/15/19 13:05 Blood Blood Culture - Final NO GROWTH IN 5 DAYS 08/15/19 13:14 Blood Blood Culture - Final NO GROWTH IN 5 DAYS 08/07/19 08/08/19 08/08/19 18:49 00:36 07:02 Creatine Kinase CK-MB (CK-2) Troponin I 0.369 0.636 0.565 NT-Pro-B Natriuret Pep 76505 H 72436 H 08/08/19 08/18/19 08/18/19 12:56 21:33 21:33 Creatine Kinase 46 L CK-MB (CK-2) 5.19 H Troponin I 0.445 0.129 NT-Pro-B Natriuret Pep 08/19/19 08/19/19 08/19/19 03:22 03:22 09:34 Creatine Kinase 62 59 CK-MB (CK-2) 14.40 H Troponin I 1.430 NT-Pro-B Natriuret Pep 08/19/19 08/20/19 08/20/19 09:34 13:47 21:13 Creatine Kinase CK-MB (CK-2) 15.30 H Troponin I 1.870 0.471 0.465 NT-Pro-B Natriuret Pep Impressions: Lung Scan-VQ NM 08/16/19 13:27 IMPRESSION: NORMAL VENTILATION-PERFUSION LUNG SCAN. NEGATIVE FOR PULMONARY EMBOLI. Shoulder X-Ray 08/18/19 00:00 IMPRESSION: NEGATIVE STUDY OF THE RIGHT SHOULDER. NO RADIOGRAPHIC EVIDENCE OF ACUTE INJURY. Hip/Pelvis X-Ray 08/18/19 11:53 IMPRESSION: NEGATIVE STUDY OF THE RIGHT HIP. NO RADIOGRAPHIC EVIDENCE OF ACUTE INJURY. Chest X-Ray 08/20/19 00:00 IMPRESSION: Persistent bibasilar airspace opacities, slight improved aeration on the left. No significant pleural effusion.
[2019-08-21] MEDS: GUAIFENESIN 600 MG TABLET.SA PO SCH (09:11)
[2019-08-21] MEDS: SUCRALFATE 1 GM TABLET PO SCH ×2 (09:11→11:52)
[2019-08-21] MEDS: DOCUSATE SODIUM 100 MG/10 ML UDC PO SCH (09:11)
[2019-08-21] MEDS: CALCIUM CARBONATE 500 MG TAB.CHEW PO SCH (09:11)
[2019-08-21] MEDS: POTASSIUM CHLORIDE 10 MEQ TABLET.ER PO SCH (09:11)
[2019-08-21] MEDS: PREDNISONE 20 MG TABLET PO SCH (09:12)
[2019-08-21] MEDS: METOPROLOL TARTRATE 25 MG TABLET PO SCH (09:12)
[2019-08-21] MEDS: FAMOTIDINE 20 MG TABLET PO SCH (09:12)
[2019-08-21] MEDS: LEVALBUTEROL HCL NEB 1.25 MG/3 ML AMPUL NEB SCH (09:15)
[2019-08-21 11:46] VITALS: BP 102/57
== END 2019-08-21 13:48 | disposition short-term general hospital (02) | DRG 981 ==
LOC: ER 18:29 → EH 22:09 → ICU 22:30 → 3W 08-14 20:05
PROVIDERS: ADMIT Internal Medicine; ATTEND Internal Medicine
PROC: 5A09357 Assistance with Respiratory Ventilation, Less than 24 Consecutive Hours, Continuous Positive Airway Pressure (ICD-10-PCS; 2019-08-07)
PROC: 5A1945Z Respiratory Ventilation, 24-96 Consecutive Hours (ICD-10-PCS; principal; 2019-08-09)
PROC: 0BH17EZ Insertion of Endotracheal Airway into Trachea, Via Natural or Artificial Opening (ICD-10-PCS; 2019-08-09)
PROC: 02HV33Z Insertion of Infusion Device into Superior Vena Cava, Percutaneous Approach (ICD-10-PCS; 2019-08-09)
PROC: 30233N1 Transfusion of Nonautologous Red Blood Cells into Peripheral Vein, Percutaneous Approach (ICD-10-PCS; 2019-08-17)
PROC: 0DJD8ZZ Inspection of Lower Intestinal Tract, Via Natural or Artificial Opening Endoscopic (ICD-10-PCS; 2019-08-18)
PROC: 3E0G8GC Introduction of Other Therapeutic Substance into Upper GI, Via Natural or Artificial Opening Endoscopic (ICD-10-PCS; 2019-08-18)
PROC: 0W3P4ZZ Control Bleeding in Gastrointestinal Tract, Percutaneous Endoscopic Approach (ICD-10-PCS; 2019-08-18 17:45)
PROC: 0DJ08ZZ Inspection of Upper Intestinal Tract, Via Natural or Artificial Opening Endoscopic (ICD-10-PCS; 2019-08-18 17:45)
PROC: 30233N1 Transfusion of Nonautologous Red Blood Cells into Peripheral Vein, Percutaneous Approach (ICD-10-PCS; 2019-08-19)
PROC: 30233N1 Transfusion of Nonautologous Red Blood Cells into Peripheral Vein, Percutaneous Approach (ICD-10-PCS; 2019-08-20)
DX: J44.0 Chronic obstructive pulmonary disease with (acute) lower respiratory infection (principal); J18.9 Pneumonia, unspecified organism; J96.02 Acute respiratory failure with hypercapnia; J96.01 Acute respiratory failure with hypoxia; I21.4 Non-ST elevation (NSTEMI) myocardial infarction; K26.4 Chronic or unspecified duodenal ulcer with hemorrhage; E87.0 Hyperosmolality and hypernatremia; I47.1 Supraventricular tachycardia; K92.1 Melena; D69.6 Thrombocytopenia, unspecified; I50.9 Heart failure, unspecified; J44.1 Chronic obstructive pulmonary disease with (acute) exacerbation; E87.5 Hyperkalemia; E66.9 Obesity, unspecified; R32 Unspecified urinary incontinence; F32.9 Major depressive disorder, single episode, unspecified; Z79.52 Long term (current) use of systemic steroids; Z87.891 Personal history of nicotine dependence; Z68.31 Body mass index [BMI] 31.0-31.9, adult
CPT/HCPCS: 00813; 31500; 36415; 36430; 43236; 43255; 45378; 71045; 78582; 80048; 80053; 80061; 80076; 80307; 81001; 82272; 82550; 82553; 82803; 82962; 83605; 83735; 83880; 84100; 84132; 84478; 84484; 85025; 85027; 85610; 85730; 86022; 86850; 86900; 86901; 86920; 87040; 87070; 87086; 87205; 87324; 87449; 93005; 93010; 93306; 94002; 94003; 94640; 94660; 94667; 94799; 96374; 96375; 99291; 99292; A9540; A9567; C9113; J0282; J0330; J0696; J1642; J1644; J1650; J1885; J1940; J1956; J2543; J2704; J2920; J2930; J3010; J3490; J7050; J7060; J7512; J7620; P9016; Q9969